=== PATIENT | female | born 1980 | race Caucasian/White ===

== ENCOUNTER 2016-10-28 07:40 | Emergency (ER) | payer OTHER ==
[2016-10-28 07:51] VITALS: RESP 18
[2016-10-28] MEDS ORDERED: ORPHENADRINE 30 MG/ML 2 ML VIAL IM STA (08:02)
[2016-10-28] MEDS ORDERED: KETOROLAC 60 MG/2 ML VIAL IM STA (08:02)
--- NOTE | 2016-10-28 08:05 | ED ---
Back Pain HPI - General Chief Complaint: Back Pain/Injury Stated Complaint: LOWER BACK PAIN Time Seen by Provider: 10/28/16 07:54 Source: patient, RN notes reviewed, old records reviewed Limitations: no limitations - History of Present Illness Initial Comments: 35-year-old female presents emergency Department chief complaint of left-sided lower back pain for the past few days. Patient reports that she wakes up the morning with the pain and his been taking Motrin and it goes away. Patient reports that today the pain did not go away after she took some Motrin. Patient states the pain is worse with certain positions. Denies any peripheral paresthesias or saddle anesthesias. Patient states that the pain remains located in the left lower back. Denies any dysuria, hematuria or fevers or chills. Patient states the pain does not radiate down her leg. Denies any recent trauma or falls. Patient denies any recent fever, chills, shortness of breath, chest pain, abdominal pain, nausea vomiting, numbness or tingling, dysuria or hematuria, constipation or diarrhea, headaches or visual changes, or any other current symptoms - Related Data Home Medications Medication Instructions Recorded Confirmed Gemfibrozil [Lopid] 600 mg PO AC-BID 07/30/13 10/28/16 Glimepiride [Amaryl] 4 mg PO BID 07/30/13 10/28/16 Hydrochlorothiazide [Hydrodiuril] 12.5 mg PO DAILY 07/30/13 10/28/16 Lisinopril [Zestril] 20 mg PO DAILY 07/30/13 10/28/16 metFORMIN HCL 1,000 mg PO BID 07/30/13 10/28/16 Albuterol Inhaler [Ventolin Hfa 1 - 2 puff INHALATION RT-Q6H PRN 09/11/14 Inhaler] Albuterol Nebulized [Ventolin 2.5 mg INHALATION RT-Q6H PRN 09/11/14 10/28/16 Nebulized] Ibuprofen [Motrin] 200 - 800 mg PO Q6HR PRN 10/28/16 10/28/16 Simvastatin [Zocor] 10 mg PO HS 10/28/16 10/28/16 Previous Rx's Medication Instructions Recorded Acetaminophen-Codeine 300-30mg 1 tab PO Q6H PRN #10 tablet 10/28/16 [Tylenol #3] Cyclobenzaprine [Flexeril] 10 mg PO TID #15 tab 10/28/16 methylPREDNISolone Dose Pack 4 mg PO DIRECTED #21 package 10/28/16 [Medrol Dose Pack] Allergies Allergy/AdvReac Type Severity Reaction Status Date / Time egg Allergy Unknown Verified 10/28/16 08:25 milk AdvReac Cough Verified 10/28/16 08:25 Review of Systems ROS Statement: Those systems with pertinent positive or pertinent negative responses have been documented in the HPI. ROS Other: All systems not noted in ROS Statement are negative. Past Medical History Past Medical History: Diabetes Mellitus, Hyperlipidemia, Hypertension Additional Past Medical History / Comment(s): BRONCHITIS, SINUSITIS History of Any Multi-Drug Resistant Organisms: None Reported Additional Past Surgical History / Comment(s): nose surgery-POLYPS REMOVED Past Anesthesia/Blood Transfusion Reactions: No Reported Reaction Past Psychological History: ADD/ADHD, Anxiety, Depression Smoking Status: Current every day smoker Past Alcohol Use History: Rare Past Drug Use History: None Reported - Past Family History Father History Unknown: Yes Mother Family Medical History: Congestive Heart Failure (CHF), Diabetes Mellitus, Hyperlipidemia, Hypertension General Exam - General Exam Comments Initial Comments: 35-year-old female. No acute distress. Limitations: no limitations General appearance: alert, in no apparent distress Head exam: Present: atraumatic, normocephalic, normal inspection Eye exam: Present: normal appearance, PERRL, EOMI. Absent: scleral icterus, conjunctival injection, periorbital swelling ENT exam: Present: normal exam, mucous membranes moist Neck exam: Present: normal inspection. Absent: tenderness, meningismus, lymphadenopathy Respiratory exam: Present: normal lung sounds bilaterally. Absent: respiratory distress, wheezes, rales, rhonchi, stridor Cardiovascular Exam: Present: regular rate, normal rhythm, normal heart sounds. Absent: systolic murmur, diastolic murmur, rubs, gallop, clicks GI/Abdominal exam: Present: soft, normal bowel sounds. Absent: distended, tenderness, guarding, rebound, rigid Extremities exam: Present: normal inspection, full ROM, normal capillary refill. Absent: tenderness, pedal edema, joint swelling, calf tenderness Back exam: Present: normal inspection, tenderness, muscle spasm, paraspinal tenderness (Left lower lumbar paraspinal muscle tenderness and spasms.) Neurological exam: Present: alert, oriented X3, CN II-XII intact Psychiatric exam: Present: normal affect, normal mood Skin exam: Present: warm, dry, intact, normal color. Absent: rash Course Vital Signs 10/28/16 07:47 Temperature 97.4 F L Pulse Rate 105 H Respiratory 18 Rate Blood Pressure 130/74 O2 Sat by Pulse 97 Oximetry Medical Decision Making - Medical Decision Making 35-year-old female presents emergency Department chief complaint of left-sided lower back pain for the past few days. Patient reports that she wakes up the morning with the pain and his been taking Motrin and it goes away. Patient reports that today the pain did not go away after she took some Motrin. Patient states the pain is worse with certain positions. Urinalysis obtained. No signs of infection. 2+ bilirubin. Patient denies any specific abdominal pain. Patient was informed of this. Patient was feeling somewhat better after IM Solu-Medrol and Norflex. Patient will be discharged at this time with a steroid Dosepak, muscle relaxers and pain medication. Discussed close follow- up with primary care provider. Patient agrees to treatment plan will comply. Return parameters were discussed. - Lab Data Lab Results 10/28/16 Range/Units 08:08 Urine Color Yellow Urine Appearance Cloudy H (Clear) Urine pH 5.0 (5.0-8.0) Ur Specific [place] 1.035 (1.001-1.035) Urine Protein 2+ (Negative) Urine Glucose (UA) Negative (Negative) Urine Ketones Negative (Negative) Urine Blood Negative (Negative) Urine Nitrite Negative (Negative) Urine Bilirubin 2+ H (Negative) Urine Urobilinogen 2.0 (<2.0) mg/dL Ur Leukocyte Esterase Large (Negative) Urine RBC 4 (0-5) /hpf Urine WBC 7 H (0-5) /hpf Ur Squamous Epith Cells 23 H (0-4) /hpf Disposition Clinical Impression: Left-sided back pain Disposition: HOME SELF-CARE Condition: Good Instructions: Acute Low Back Pain (ED) Additional Instructions: Patient advised to follow-up with her primary care provider symptoms continue to persist. Take pain medication as directed. Emergency department if any alarming signs or symptoms occur. Prescriptions: Acetaminophen-Codeine 300-30mg [Tylenol #3] 1 tab PO Q6H PRN #10 tablet PRN Reason: Pain Cyclobenzaprine [Flexeril] 10 mg PO TID #15 tab methylPREDNISolone Dose Pack [Medrol Dose Pack] 4 mg PO DIRECTED #21 package Referrals: Yohan Trujillo DO [Primary Care Provider] - 1-2 days Nevin Peralta DO [Doctor of Osteopathic Medicine] - 1-2 days Time of Disposition: 09:09
[2016-10-28] MEDS ORDERED: methylPREDNISolone SOD SUCCI 125 MG/2 ML VIAL IM ONE (08:12)
[2016-10-28 09:01] LABS: Appearance,Urine Cloudy (Clear); Specific Gravity,Urine 1.035 (1.001-1.035)
[2016-10-28 09:02] LABS: Bilirubin,Urine 2+ (Negative); Glucose,Urine (UA) Negative (Negative); Ketones,Urine Negative (Negative); Nitrite,Urine Negative (Negative); Protein,Urine 2+ (Negative)
[2016-10-28 09:03] LABS: Leukocyte Esterase,Urine Large (Negative); UA Billing (MACRO vs. MICRO) MICRO
[2016-10-28 09:04] LABS: Particle Count 19562; RBC,Urine 4 /hpf (0-5); Squamous Epithelial Cell,Urine 23 /hpf (0-4); WBC,Urine 7 /hpf (0-5)
[2016-10-28] MEDS ORDERED: ACET/COD 300 MG/30 MG STARTER PACK 6 TAB BTL PO STA (09:17)
[2016-10-28 09:27] VITALS: BP 107/66; PULSE 86; TEMP 98.1
== END 2016-10-28 09:26 | disposition home or self-care (01) ==
LOC: EC 07:40
DX: M62.830 Muscle spasm of back (principal); E78.5 Hyperlipidemia, unspecified; I10 Essential (primary) hypertension; E11.9 Type 2 diabetes mellitus without complications; F17.200 Nicotine dependence, unspecified, uncomplicated; Z79.84 Long term (current) use of oral hypoglycemic drugs; Z79.899 Other long term (current) drug therapy; Z91.011 Allergy to milk products; Z91.012 Allergy to eggs
CPT/HCPCS: 81001; 99284; 96372 ×2; J2360; J2930

== ENCOUNTER 2017-01-14 01:36 | Emergency (ER) | payer OTHER ==
[2017-01-14] MEDS ORDERED: KETOROLAC 30 MG/ML 1 ML VIAL IVP STA (02:05)
[2017-01-14] MEDS ORDERED: HYDROmorphone 0.5 MG/0.5 ML SYRINGE IVP STA (02:05)
[2017-01-14] MEDS ORDERED: ONDANSETRON 4 MG/2 ML VIAL IVP STA (02:05)
[2017-01-14 02:47] LABS: Basophils # (A) 0.1 k/uL (0-0.2); Basophils % (A) 1 %; CH 32.5; CHCM 34.9; Eosinophils # (A) 0.5 k/uL (0-0.7); Eosinophils % (A) 5 %; HCT 35.3 % (34.0-46.0); HDW 2.82; HGB 12.1 gm/dL (11.4-16.0); Luc # (Auto) 0.12; Luc % (Auto) 1; Lymphocytes # (A) 2.8 k/uL (1.0-4.8); Lymphocytes % (A) 27 %; MCHC 34.2 g/dL (31.0-37.0); MCV 93.8 fL (80.0-100.0); Mean Platelet Volume 8.3; Monocytes # (A) 0.5 k/uL (0-1.0); Monocytes % (A) 5 %; Neutrophils # (A) 6.4 k/uL (1.3-7.7); Neutrophils % (A) 62 %; RBC 3.77 m/uL (3.80-5.40); RDW 14.9 % (11.5-15.5); WBC 10.3 k/uL (3.8-10.6); WBC (Perox) 10.55
[2017-01-14 02:50] LABS: Appearance,Urine Cloudy (Clear); Bilirubin,Urine Negative (Negative); Glucose,Urine (UA) Negative (Negative); Ketones,Urine Negative (Negative); Leukocyte Esterase,Urine Moderate (Negative); Mucus,Urine Rare /hpf; Nitrite,Urine Negative (Negative); PH, Urine 5.5 (5.0-8.0); Particle Count 1967; Protein,Urine Trace (Negative); RBC,Urine 1 /hpf (0-5); Specific Gravity,Urine 1.016 (1.001-1.035); Squamous Epithelial Cell,Urine 8 /hpf (0-4); UA Billing (MACRO vs. MICRO) MICRO; Urobilinogen,Urine <2.0 mg/dL (<2.0); WBC,Urine 3 /hpf (0-5)
[2017-01-14 02:55] LABS: ALT 65 U/L (9-52); AST 39 U/L (14-36); Alkaline Phosphatase 60 U/L (38-126); Amylase 53 U/L (30-110); Anion Gap 13 mmol/L; Blood Urea Nitrogen 15 mg/dL (7-17); Carbon Dioxide 20 mmol/L (22-30); Chloride 105 mmol/L (98-107); Glucose 162 mg/dL (74-99); Non-African American GFR(MDRD) >60 (>60 ml/min/1.73 sqM); Potassium 4.8 mmol/L (3.5-5.1); Sodium 138 mmol/L (137-145); Total Bilirubin 0.3 mg/dL (0.2-1.3); Total Protein 7.8 g/dL (6.3-8.2)
[2017-01-14 03:31] VITALS: RESP 18
[2017-01-14] MEDS ORDERED: RX INFO: IV CONTRAST WAS GIVEN 1 EACH MISC MISCELLANE PRN (03:36)
--- NOTE | 2017-01-14 03:56 | ED ---
Abdominal Pain HPI - General Chief Complaint: Abdominal Pain Stated Complaint: abd pain Time Seen by Provider: 01/14/17 01:55 Source: patient Mode of arrival: ambulatory Limitations: no limitations - History of Present Illness Initial Comments: 36-year-old female patient presents to the emergency department today for evaluation of abdominal pain. Patient states that she began to have abdominal pain yesterday. States it is in the mid epigastric region and the left lower quadrant. Patient states that she has had nausea with this however has not vomited. She states that the pain was tolerable yesterday however today throughout the day began to become worse. She states that she has been somewhat constipated, however she did have a small bowel movement this morning. She denies any fever, chills, hematochezia, melena, hematuria, dysuria, urinary urgency, or urinary frequency. She denies any vaginal bleeding or discharge. States that her periods are irregular. She denies any current sexual activity and denies any chance of . She denies any use of alcohol or street drugs. - Related Data Home Medications Medication Instructions Recorded Confirmed Gemfibrozil [Lopid] 600 mg PO AC-BID 07/30/13 10/28/16 Glimepiride [Amaryl] 4 mg PO BID 07/30/13 10/28/16 Hydrochlorothiazide [Hydrodiuril] 12.5 mg PO DAILY 07/30/13 10/28/16 Lisinopril [Zestril] 20 mg PO DAILY 07/30/13 10/28/16 metFORMIN HCL 1,000 mg PO BID 07/30/13 10/28/16 Albuterol Inhaler [Ventolin Hfa 1 - 2 puff INHALATION RT-Q6H PRN 09/11/14 Inhaler] Albuterol Nebulized [Ventolin 2.5 mg INHALATION RT-Q6H PRN 09/11/14 10/28/16 Nebulized] Ibuprofen [Motrin] 200 - 800 mg PO Q6HR PRN 10/28/16 10/28/16 Simvastatin [Zocor] 10 mg PO HS 10/28/16 10/28/16 Previous Rx's Medication Instructions Recorded Acetaminophen-Codeine 300-30mg 1 tab PO Q6H PRN #10 tablet 10/28/16 [Tylenol #3] Cyclobenzaprine [Flexeril] 10 mg PO TID #15 tab 10/28/16 methylPREDNISolone Dose Pack 4 mg PO DIRECTED #21 package 10/28/16 [Medrol Dose Pack] Polyethylene Glycol 3350 [Miralax] 17 gm PO DAILY PRN #255 gm 01/14/17 metroNIDAZOLE [Flagyl] 500 mg PO TID #30 tab 01/14/17 Allergies Allergy/AdvReac Type Severity Reaction Status Date / Time egg Allergy Unknown Verified 01/14/17 01:46 milk AdvReac Cough Verified 01/14/17 01:46 Review of Systems ROS Statement: Those systems with pertinent positive or pertinent negative responses have been documented in the HPI. ROS Other: All systems not noted in ROS Statement are negative. Past Medical History Past Medical History: Diabetes Mellitus, Hyperlipidemia, Hypertension Additional Past Medical History / Comment(s): BRONCHITIS, SINUSITIS History of Any Multi-Drug Resistant Organisms: None Reported Additional Past Surgical History / Comment(s): nose surgery-POLYPS REMOVED Past Anesthesia/Blood Transfusion Reactions: No Reported Reaction Past Psychological History: ADD/ADHD, Anxiety, Depression Smoking Status: Current every day smoker Past Alcohol Use History: Rare Past Drug Use History: None Reported - Past Family History Father History Unknown: Yes Mother Family Medical History: Congestive Heart Failure (CHF), Diabetes Mellitus, Hyperlipidemia, Hypertension General Exam Limitations: no limitations General appearance: alert, in no apparent distress, other (This is a well- developed, well-nourished adult female patient in no acute distress. Vital signs upon presentation are temperature 98.6F, pulse 100, respirations 16, blood pressure 136/76, pulse ox 98% on room air.) Eye exam: Present: normal appearance, PERRL, EOMI. Absent: scleral icterus, conjunctival injection, periorbital swelling ENT exam: Present: normal exam, normal oropharynx, mucous membranes moist Respiratory exam: Present: normal lung sounds bilaterally. Absent: respiratory distress, wheezes, rales, rhonchi, stridor Cardiovascular Exam: Present: regular rate, normal rhythm, normal heart sounds. Absent: systolic murmur, diastolic murmur, rubs, gallop, clicks GI/Abdominal exam: Present: soft, tenderness (Midepigastric tenderness, left lower quadrant tenderness.), normal bowel sounds. Absent: distended, guarding, rebound, rigid Back exam: Present: normal inspection. Absent: CVA tenderness (R), CVA tenderness (L) Neurological exam: Present: alert, oriented X3, CN II-XII intact Psychiatric exam: Present: normal affect, normal mood Skin exam: Present: warm, dry, intact, normal color. Absent: rash Course Vital Signs 01/14/17 01/14/17 01/14/17 01:42 02:27 03:30 Temperature 98.6 F 97.5 F L Pulse Rate 100 104 H 62 Respiratory 16 20 18 Rate Blood Pressure 136/76 132/77 111/57 O2 Sat by Pulse 98 96 95 Oximetry Medical Decision Making - Medical Decision Making 36-year-old female patient percents the emergency department today for complaints of epigastric and left lower quadrant abdominal pain. Physical examination did reveal some tenderness in the midepigastric region as well as the left lower quadrant. Patient vital signs are stable. Labs were reviewed and were unremarkable. Patient is afebrile. Urinalysis did not show any infection. KUB x-ray of the abdomen showed overall nonobstructive bowel gas pattern with stool and air throughout the colon likely representing constipation. CT of the abdomen and pelvis showed possible infectious versus inflammatory enteritis possibly constipation. Patient was informed of findings. With physical exam and patient history of constipation we will discharge her home at this time with a prescription for MiraLAX. We'll also treat her for enteritis with Flagyl. She is instructed to follow-up with her primary care physician for recheck in 1-2 days. She is instructed to return here immediately for any new, worsening, or concerning symptoms. She verbalizes understanding and agrees with this plan. - Lab Data Result diagrams: 01/14/17 02:26 01/14/17 02:26 Lab Results 01/14/17 01/14/17 01/14/17 Range/Units 02:26 02:26 02:26 WBC 10.3 (3.8-10.6) k/uL RBC 3.77 L (3.80-5.40) m/uL Hgb 12.1 (11.4-16.0) gm/dL Hct 35.3 (34.0-46.0) % MCV 93.8 (80.0-100.0) fL MCH 32.0 (25.0-35.0) pg MCHC 34.2 (31.0-37.0) g/dL RDW 14.9 (11.5-15.5) % Plt Count 323 (150-450) k/uL Neutrophils % 62 % Lymphocytes % 27 % Monocytes % 5 % Eosinophils % 5 % Basophils % 1 % Neutrophils # 6.4 (1.3-7.7) k/uL Lymphocytes # 2.8 (1.0-4.8) k/uL Monocytes # 0.5 (0-1.0) k/uL Eosinophils # 0.5 (0-0.7) k/uL Basophils # 0.1 (0-0.2) k/uL Sodium 138 (137-145) mmol/L Potassium 4.8 (3.5-5.1) mmol/L Chloride 105 (98-107) mmol/L Carbon Dioxide 20 L (22-30) mmol/L Anion Gap 13 mmol/L BUN 15 (7-17) mg/dL Creatinine 0.90 (0.52-1.04) mg/dL Est GFR (MDRD) Af Amer >60 (>60 ml/min/1.73 sqM) Est GFR (MDRD) Non-Af >60 (>60 ml/min/1.73 sqM) Glucose 162 H (74-99) mg/dL Plasma Lactic Acid Kb 1.3 (0.7-2.0) mmol/L Calcium 10.0 (8.4-10.2) mg/dL Total Bilirubin 0.3 (0.2-1.3) mg/dL AST 39 H (14-36) U/L ALT 65 H (9-52) U/L Alkaline Phosphatase 60 (38-126) U/L Total Protein 7.8 (6.3-8.2) g/dL Albumin 4.8 (3.5-5.0) g/dL Amylase 53 (30-110) U/L Lipase 107 (23-300) U/L Urine Color Urine Appearance (Clear) Urine pH (5.0-8.0) Ur Specific [place] (1.001-1.035) Urine Protein (Negative) Urine Glucose (UA) (Negative) Urine Ketones (Negative) Urine Blood (Negative) Urine Nitrite (Negative) Urine Bilirubin (Negative) Urine Urobilinogen (<2.0) mg/dL Ur Leukocyte Esterase (Negative) Urine RBC (0-5) /hpf Urine WBC (0-5) /hpf Ur Squamous Epith Cells (0-4) /hpf Urine Mucus (None) /hpf Urine HCG, Qual (Not Detectd) 01/14/17 01/14/17 Range/Units 02:26 02:26 WBC (3.8-10.6) k/uL RBC (3.80-5.40) m/uL Hgb (11.4-16.0) gm/dL Hct (34.0-46.0) % MCV (80.0-100.0) fL MCH (25.0-35.0) pg MCHC (31.0-37.0) g/dL RDW (11.5-15.5) % Plt Count (150-450) k/uL Neutrophils % % Lymphocytes % % Monocytes % % Eosinophils % % Basophils % % Neutrophils # (1.3-7.7) k/uL Lymphocytes # (1.0-4.8) k/uL Monocytes # (0-1.0) k/uL Eosinophils # (0-0.7) k/uL Basophils # (0-0.2) k/uL Sodium (137-145) mmol/L Potassium (3.5-5.1) mmol/L Chloride (98-107) mmol/L Carbon Dioxide (22-30) mmol/L Anion Gap mmol/L BUN (7-17) mg/dL Creatinine (0.52-1.04) mg/dL Est GFR (MDRD) Af Amer (>60 ml/min/1.73 sqM) Est GFR (MDRD) Non-Af (>60 ml/min/1.73 sqM) Glucose (74-99) mg/dL Plasma Lactic Acid Kb (0.7-2.0) mmol/L Calcium (8.4-10.2) mg/dL Total Bilirubin (0.2-1.3) mg/dL AST (14-36) U/L ALT (9-52) U/L Alkaline Phosphatase (38-126) U/L Total Protein (6.3-8.2) g/dL Albumin (3.5-5.0) g/dL Amylase (30-110) U/L Lipase (23-300) U/L Urine Color Yellow Urine Appearance Cloudy H (Clear) Urine pH 5.5 (5.0-8.0) Ur Specific [place] 1.016 (1.001-1.035) Urine Protein Trace H (Negative) Urine Glucose (UA) Negative (Negative) Urine Ketones Negative (Negative) Urine Blood Negative (Negative) Urine Nitrite Negative (Negative) Urine Bilirubin Negative (Negative) Urine Urobilinogen <2.0 (<2.0) mg/dL Ur Leukocyte Esterase Moderate H (Negative) Urine RBC 1 (0-5) /hpf Urine WBC 3 (0-5) /hpf Ur Squamous Epith Cells 8 H (0-4) /hpf Urine Mucus Rare H (None) /hpf Urine HCG, Qual Not Detected (Not Detectd) - Radiology Data Radiology results: report reviewed, image reviewed KUB x-ray of the abdomen shows stool and air seen throughout the colon extending into the rectum likely representing constipation. No evidence of obstruction on these limited views. Bones and joints are essentially unchanged. Impression by Dr. Arroyo shows stool and air throughout the colon extending to the rectum likely representing constipation. CT of the abdomen and pelvis with contrast report reviewed in its entirety. Impression by Dr. Arroyo shows evaluation of the bowels limited without the use of oral contrast material. Within this limitation there are appears to be wall thickening of the mid small bowel loops in the left hemiabdomen with associated mild mesenteric fat stranding and mild engorgement of the supplying mesenteric vessels. Constellation of findings are suggestive of infectious versus inflammatory enteritis. Fecal like material within distal small bowel loops which are nondistended. Finding likely represents low transit time, although early small bowel obstruction cannot be definitively excluded. Correlate clinically. Findings also suggestive of constipation. Disposition Clinical Impression: Enteritis, Abdominal pain Disposition: HOME SELF-CARE Condition: Good Instructions: Constipation (ED), High Fiber Diet (ED), Abdominal Pain (ED), Enteritis (ED) Additional Instructions: Increase fluids. Take medications as directed. Follow-up with her primary care physician for recheck in 1-2 days. Return here immediately for any new, worsening, or concerning symptoms. Prescriptions: metroNIDAZOLE [Flagyl] 500 mg PO TID #30 tab Polyethylene Glycol 3350 [Miralax] 17 gm PO DAILY PRN #255 gm PRN Reason: Constipation Referrals: Yohan Trujillo DO [Primary Care Provider] - 1-2 days Time of Disposition: 05:00
--- NOTE | 2017-01-14 03:59 | XR ---
EXAM: XR Abdomen, 1 View CLINICAL HISTORY: abdominal pain TECHNIQUE: Frontal upright view of the abdomen/pelvis. COMPARISON: 09/11/2014 FINDINGS: Gastrointestinal tract: Stool and air seen throughout the colon extending to the rectum, likely representing constipation. No evidence of obstruction on these limited views. Bones/joints: Essentially unchanged. IMPRESSION: Stool and air throughout the colon extending to the rectum, likely representing constipation.
--- NOTE | 2017-01-14 04:43 | CT ---
EXAM: CT Abdomen and Pelvis With Intravenous Contrast CLINICAL HISTORY: Periumbilical abdominal pain for the past few days with nausea. TECHNIQUE: Axial computed tomography images of the abdomen and pelvis with intravenous contrast. DLP is 1350.90 mGy-cm. This CT exam was performed using one or more of the following dose reduction techniques: automated exposure control, adjustment of the mA and/or kV according to patient size, and/or use of iterative reconstruction technique. COMPARISON: Radiographs the abdomen performed earlier the same day. FINDINGS: Lower thorax: No acute findings. ABDOMEN: Liver: Hepatomegaly and/or Elisabeth's lobe. Mild hepatic steatosis is suggested. Gallbladder and bile ducts: Unremarkable. No calcified stones. No ductal dilation. Pancreas: Unremarkable. No mass. No ductal dilation. Spleen: The spleen is mildly enlarged, measuring up to 13.2 cm in greatest dimension, of unknown significance. Adrenals: Unremarkable. No mass. Kidneys and ureters: Unremarkable. No solid mass. No hydronephrosis. Stomach and bowel: Evaluation of the bowel is limited without the use of oral contrast material. Within this limitation, there appears to be wall thickening of mid small bowel loops in the left hemiabdomen with associated mild mesenteric fat stranding and mild engorgement of the supplying mesenteric vessels (Comb sign, as seen on series 7, image 42). Constellation of findings are suggestive of infectious versus inflammatory enteritis. Fecal-like material seen within distal small bowel loops which are non-distended. Finding likely represents slow transit time, although early small bowel obstruction cannot be definitively excluded. Findings also suggestive of constipation. Appendix: A normal appendix is seen (series 3, image 66). PELVIS: Bladder: Unremarkable. No mass. Reproductive: Fibroid uterus is noted. ABDOMEN and PELVIS: Intraperitoneal space: Trace pelvic free fluid is seen, which is likely physiologic and/or reactive to the above-mentioned findings. No free air. Bones/joints: No acute fracture. No dislocation. Soft tissues: Unremarkable. Vasculature: See above. Lymph nodes: Shotty retroperitoneal and mesenteric lymph nodes are noted, of unknown significance. IMPRESSION: 1. Evaluation of the bowel is limited without the use of oral contrast material. Within this limitation, there appears to be wall thickening of mid small bowel loops in the left hemiabdomen with associated mild mesenteric fat stranding and mild engorgement of the supplying mesenteric vessels (Comb sign, as seen on series 7, image 42). Constellation of findings are suggestive of infectious versus inflammatory enteritis. 2. Fecal-like material within distal small bowel loops, which are non- distended. Finding likely represents slow transit time, although early small bowel obstruction cannot be definitively excluded. Correlate clinically. 3. Findings also suggestive of constipation.
[2017-01-14 05:15] VITALS: BP 107/56; PULSE 87; TEMP 97.4
== END 2017-01-14 05:14 | disposition home or self-care (01) ==
LOC: EC 01:36
DX: K52.9 Noninfective gastroenteritis and colitis, unspecified (principal); E78.5 Hyperlipidemia, unspecified; I10 Essential (primary) hypertension; E11.9 Type 2 diabetes mellitus without complications; F17.200 Nicotine dependence, unspecified, uncomplicated; Z79.84 Long term (current) use of oral hypoglycemic drugs; Z79.899 Other long term (current) drug therapy; Z91.011 Allergy to milk products; Z91.012 Allergy to eggs
CPT/HCPCS: 36415; 74000; 74177; 80053; 81001; 81025; 82150; 83605; 83690; 85025; 96374; 96375; 99284

== ENCOUNTER 2017-03-30 11:25 | Emergency (ER) | payer OTHER ==
[2017-03-30] MEDS ORDERED: SODIUM CHLORIDE 0.9% 500 ML IV STA (13:20)
[2017-03-30] MEDS ORDERED: ONDANSETRON 4 MG/2 ML VIAL IVP STA (13:20)
--- NOTE | 2017-03-30 13:24 | ED ---
General Adult HPI - General Chief complaint: Abdominal Pain Stated complaint: Abd.pain Time Seen by Provider: 03/30/17 13:07 Source: patient, RN notes reviewed Mode of arrival: ambulatory Limitations: no limitations - History of Present Illness Initial comments: 36-year-old female presents with epigastric abdominal pain. Pain is been present for the past one week. She states the pain is worse with eating or drinking. She does have the sensation of gastric reflux after eating with nausea. She does complain of some mild anterior chest pain associated with this. Denies any change in her bowels. Denies dysuria. Denies fever. Denies cough or nasal congestion. Patient is a current smoker. She states the symptoms are worse with food, however she does have pain when she drinks water or pop.patient is concerned this is her gallbladder. She did see her primary care physician who thought it was related to anxiety and prescribed her anxiety medication, she states this has not improved her symptoms. - Related Data Home Medications Medication Instructions Recorded Confirmed Gemfibrozil [Lopid] 600 mg PO AC-BID 07/30/13 03/30/17 Glimepiride [Amaryl] 4 mg PO BID 07/30/13 03/30/17 Hydrochlorothiazide [Hydrodiuril] 12.5 mg PO DAILY 07/30/13 03/30/17 Lisinopril [Zestril] 20 mg PO DAILY 07/30/13 03/30/17 metFORMIN HCL 1,000 mg PO BID 07/30/13 03/30/17 Albuterol Inhaler [Ventolin Hfa 1 - 2 puff INHALATION RT-Q6H PRN 09/11/14 Inhaler] Albuterol Nebulized [Ventolin 2.5 mg INHALATION RT-Q6H PRN 09/11/14 03/30/17 Nebulized] Ibuprofen [Motrin] 200 - 800 mg PO Q6HR PRN 10/28/16 03/30/17 Simvastatin [Zocor] 10 mg PO HS 10/28/16 03/30/17 Sertraline [Zoloft] 25 mg PO DAILY 03/30/17 03/30/17 Previous Rx's Medication Instructions Recorded Omeprazole [PriLOSEC] 20 mg PO AC-BID #60 cap 03/30/17 Allergies Allergy/AdvReac Type Severity Reaction Status Date / Time egg Allergy Unknown Verified 03/30/17 12:49 milk AdvReac Cough Verified 03/30/17 12:49 Review of Systems ROS Statement: Those systems with pertinent positive or pertinent negative responses have been documented in the HPI. ROS Other: All systems not noted in ROS Statement are negative. Past Medical History Past Medical History: Diabetes Mellitus, Hyperlipidemia, Hypertension Additional Past Medical History / Comment(s): BRONCHITIS, SINUSITIS History of Any Multi-Drug Resistant Organisms: None Reported Additional Past Surgical History / Comment(s): nose surgery-POLYPS REMOVED Past Anesthesia/Blood Transfusion Reactions: No Reported Reaction Past Psychological History: ADD/ADHD, Anxiety, Depression Smoking Status: Current every day smoker Past Alcohol Use History: Rare Past Drug Use History: None Reported - Past Family History Father History Unknown: Yes Mother Family Medical History: Congestive Heart Failure (CHF), Diabetes Mellitus, Hyperlipidemia, Hypertension General Exam Limitations: no limitations General appearance: alert, in no apparent distress Head exam: Present: atraumatic, normocephalic Eye exam: Present: normal appearance, PERRL ENT exam: Present: normal exam. Absent: normal oropharynx, mucous membranes dry Neck exam: Present: normal inspection. Absent: tenderness, meningismus Respiratory exam: Present: normal lung sounds bilaterally. Absent: respiratory distress Cardiovascular Exam: Present: regular rate, normal rhythm GI/Abdominal exam: Present: soft, tenderness (epigastric tenderness to palpation ). Absent: distended Extremities exam: Present: normal inspection, normal capillary refill. Absent: pedal edema Neurological exam: Present: alert, oriented X3, CN II-XII intact. Absent: motor sensory deficit Psychiatric exam: Present: normal affect, normal mood Skin exam: Present: warm, dry, intact. Absent: cyanosis, diaphoretic Course Vital Signs 03/30/17 03/30/17 11:37 13:35 Temperature 97.8 F 98.7 F Pulse Rate 63 90 Respiratory 16 18 Rate Blood Pressure 120/69 111/54 O2 Sat by Pulse 98 95 Oximetry Medical Decision Making - Medical Decision Making 36-year-old female with abdominal pain worse with eating. This is been present for approximately one week. Patient does describe certain foods that make her symptoms worsen she describes some reflux symptoms in her throat. She is concerned about gallbladder, there is some epigastric tenderness and AST, ALT both mildly elevated as well as lipase of 400 which is mildly elevated so ultrasound is obtained, this is negative for any acute gallbladder disease, bile duct within normal limits. Chest x-ray obtained which is negative. Patient is instructed to eat a clear liquid diet followed by a very bland generally healthy diet, she will be prescribed a proton pump inhibitor and will follow-up with her primary care physician. - Lab Data Result diagrams: 03/30/17 13:30 03/30/17 13:30 Lab Results 03/30/17 03/30/17 03/30/17 Range/Units 13:30 13:30 13:30 WBC 7.6 (3.8-10.6) k/uL RBC 3.99 (3.80-5.40) m/uL Hgb 12.3 (11.4-16.0) gm/dL Hct 35.3 (34.0-46.0) % MCV 88.5 (80.0-100.0) fL MCH 30.8 (25.0-35.0) pg MCHC 34.8 (31.0-37.0) g/dL RDW 13.9 (11.5-15.5) % Plt Count 338 (150-450) k/uL Neutrophils % 55 % Lymphocytes % 35 % Monocytes % 3 % Eosinophils % 5 % Basophils % 1 % Neutrophils # 4.1 (1.3-7.7) k/uL Lymphocytes # 2.6 (1.0-4.8) k/uL Monocytes # 0.2 (0-1.0) k/uL Eosinophils # 0.4 (0-0.7) k/uL Basophils # 0.1 (0-0.2) k/uL Sodium 140 (137-145) mmol/L Potassium 4.5 (3.5-5.1) mmol/L Chloride 104 (98-107) mmol/L Carbon Dioxide 22 (22-30) mmol/L Anion Gap 14 mmol/L BUN 19 H (7-17) mg/dL Creatinine 0.82 (0.52-1.04) mg/dL Est GFR (MDRD) Af Amer >60 (>60 ml/min/1.73 sqM) Est GFR (MDRD) Non-Af >60 (>60 ml/min/1.73 sqM) Glucose 219 H (74-99) mg/dL Calcium 9.8 (8.4-10.2) mg/dL Total Bilirubin 0.2 (0.2-1.3) mg/dL AST 51 H (14-36) U/L ALT 77 H (9-52) U/L Alkaline Phosphatase 59 (38-126) U/L Total Creatine Kinase 67 (30-135) U/L CK-MB (CK-2) 0.6 (0.0-2.4) ng/mL CK-MB (CK-2) Rel Index 0.9 Troponin I <0.012 (0.000-0.034) ng/mL Total Protein 7.4 (6.3-8.2) g/dL Albumin 4.5 (3.5-5.0) g/dL Amylase 69 (30-110) U/L Lipase 400 H (23-300) U/L Disposition Clinical Impression: Pancreatitis, Gastritis Disposition: HOME SELF-CARE Condition: Good Instructions: Pancreatitis (ED), Gastritis (ED) Prescriptions: Omeprazole [PriLOSEC] 20 mg PO AC-BID #60 cap Referrals: Arpan Ayala MD [Primary Care Provider] - 1-2 days Time of Disposition: 15:11
[2017-03-30 13:37] VITALS: RESP 18
[2017-03-30 13:47] LABS: Basophils # (A) 0.1 k/uL (0-0.2); Basophils % (A) 1 %; Eosinophils # (A) 0.4 k/uL (0-0.7); Eosinophils % (A) 5 %; HCT 35.3 % (34.0-46.0); HGB 12.3 gm/dL (11.4-16.0); Lymphocytes # (A) 2.6 k/uL (1.0-4.8); Lymphocytes % (A) 35 %; MCH 30.8 pg (25.0-35.0); MCHC 34.8 g/dL (31.0-37.0); MCV 88.5 fL (80.0-100.0); Mean Platelet Volume 7.5; Monocytes # (A) 0.2 k/uL (0-1.0); Monocytes % (A) 3 %; Neutrophils # (A) 4.1 k/uL (1.3-7.7); Neutrophils % (A) 55 %; Platelet Count 338 k/uL (150-450); RBC 3.99 m/uL (3.80-5.40); RDW 13.9 % (11.5-15.5); WBC 7.6 k/uL (3.8-10.6)
[2017-03-30 14:06] LABS: ALT 77 U/L (9-52); AST 51 U/L (14-36); Albumin 4.5 g/dL (3.5-5.0); Alkaline Phosphatase 59 U/L (38-126); Amylase 69 U/L (30-110); Anion Gap 14 mmol/L; Blood Urea Nitrogen 19 mg/dL (7-17); Calcium 9.8 mg/dL (8.4-10.2); Carbon Dioxide 22 mmol/L (22-30); Chloride 104 mmol/L (98-107); Glucose 219 mg/dL (74-99); Lipase 400 U/L (23-300); Potassium 4.5 mmol/L (3.5-5.1); Sodium 140 mmol/L (137-145); Total Bilirubin 0.2 mg/dL (0.2-1.3); Total Protein 7.4 g/dL (6.3-8.2)
[2017-03-30 14:18] LABS: Creatine Kinase 67 U/L (30-135)
[2017-03-30 14:30] LABS: Creatine Kinase MB 0.6 ng/mL (0.0-2.4); Troponin I <0.012 ng/mL (0.000-0.034)
--- NOTE | 2017-03-30 14:45 | XR ---
EXAMINATION TYPE: XR chest 2V DATE OF EXAM: 03/30/2017 COMPARISON: NONE HISTORY: Chest pain TECHNIQUE: Frontal and lateral views of the chest are obtained. FINDINGS: There is no focal air space opacity. No evidence for pneumothorax. No pleural effusion. The cardiac silhouette size is within normal limits. The osseous structures are grossly intact. IMPRESSION: 1. No acute cardiopulmonary process.
--- NOTE | 2017-03-30 14:57 | US ---
EXAMINATION TYPE: US gallbladder DATE OF EXAM: 03/30/2017 COMPARISON: US CLINICAL HISTORY: Pain. Pt states ABD pain and nausea EXAM MEASUREMENTS: Liver Length: 20.4 cm Gallbladder Wall: 0.3 cm CBD: 0.2 cm Right Kidney: 10.3 x 4.2 x 5.8 cm Obese pt Pancreas: wnl, tail obscured by overlying bowel gas Liver: Enlarged, heterogeneous with probable fatty sparing at megan Gallbladder: wnl Evidence for sonographic Caldera's sign: No CBD: wnl Right Kidney: wnl IMPRESSION: 1. Hepatic steatosis with hepatomegaly.
[2017-03-30 15:40] VITALS: BP 108/60; PULSE 80; TEMP 97
== END 2017-03-30 15:39 | disposition home or self-care (01) ==
LOC: EC 11:25
DX: K85.90 Acute pancreatitis without necrosis or infection, unspecified (principal); K29.70 Gastritis, unspecified, without bleeding; E11.9 Type 2 diabetes mellitus without complications; E78.5 Hyperlipidemia, unspecified; F41.9 Anxiety disorder, unspecified; F32.9 Major depressive disorder, single episode, unspecified; I10 Essential (primary) hypertension; F17.200 Nicotine dependence, unspecified, uncomplicated; Z91.011 Allergy to milk products; Z91.012 Allergy to eggs; Z79.84 Long term (current) use of oral hypoglycemic drugs; Z79.899 Other long term (current) drug therapy
CPT/HCPCS: 99284; 96374; 96361 ×2; 36415; 80053; 82150; 82550; 82553; 83690; 84484; 85025; 71046; 76705; J2405

== ENCOUNTER 2018-06-26 10:20 | Emergency (ER) | payer OTHER ==
[2018-06-26 10:29] VITALS: BP 134/66; PULSE 81; RESP 18; TEMP 98.6
[2018-06-26] MEDS ORDERED: LIDOCAINE 1% INJ 10MG/ML (20 ML MDV) SQ ONE (10:40)
[2018-06-26] MEDS ORDERED: SULFAMETH-TMP DS STARTER PACK 2 TAB BTL PO STA (10:41)
--- NOTE | 2018-06-26 10:43 | ED ---
Skin/Abscess/FB HPI - General Chief complaint: Skin/Abscess/Foreign Body Stated complaint: Bump on thigh Time Seen by Provider: 06/26/18 10:31 Source: patient, RN notes reviewed, old records reviewed Mode of arrival: ambulatory Limitations: no limitations - History of Present Illness Initial comments: Patient is a 37-year-old female with history of diabetes hyperlipidemia hypertension. She presents emergency department today with complaints of a bump on her inner left thigh. She reports she's had the symptoms for the past 4 days. Patient states that she's had history of ingrown hairs the area before. Patient states that she has had no fevers or chills. Denies any drainage from the area. - Related Data Home Medications Medication Instructions Recorded Confirmed Gemfibrozil [Lopid] 600 mg PO AC-BID 07/30/13 03/30/17 Glimepiride [Amaryl] 4 mg PO BID 07/30/13 03/30/17 Hydrochlorothiazide [Hydrodiuril] 12.5 mg PO DAILY 07/30/13 03/30/17 Lisinopril [Zestril] 20 mg PO DAILY 07/30/13 03/30/17 metFORMIN HCL 1,000 mg PO BID 07/30/13 03/30/17 Albuterol Inhaler [Ventolin Hfa 1 - 2 puff INHALATION RT-Q6H PRN 09/11/14 03/30/17 Inhaler] Albuterol Nebulized [Ventolin 2.5 mg INHALATION RT-Q6H PRN 09/11/14 03/30/17 Nebulized] Ibuprofen [Motrin] 200 - 800 mg PO Q6HR PRN 10/28/16 03/30/17 Simvastatin [Zocor] 10 mg PO HS 10/28/16 03/30/17 Sertraline [Zoloft] 25 mg PO DAILY 03/30/17 03/30/17 Previous Rx's Medication Instructions Recorded Omeprazole [PriLOSEC] 20 mg PO AC-BID #60 cap 03/30/17 Sulfamethox-Tmp 800-160Mg [Bactrim 2 tab PO Q12HR #40 tab 06/26/18 DS 800-160 mg] Allergies Allergy/AdvReac Type Severity Reaction Status Date / Time egg Allergy Unknown Verified 06/26/18 10:29 milk AdvReac Cough Verified 06/26/18 10:29 Review of Systems ROS Statement: Those systems with pertinent positive or pertinent negative responses have been documented in the HPI. ROS Other: All systems not noted in ROS Statement are negative. Past Medical History Past Medical History: Diabetes Mellitus, Hyperlipidemia, Hypertension Additional Past Medical History / Comment(s): BRONCHITIS, SINUSITIS History of Any Multi-Drug Resistant Organisms: None Reported Additional Past Surgical History / Comment(s): nose surgery-POLYPS REMOVED Past Anesthesia/Blood Transfusion Reactions: No Reported Reaction Past Psychological History: ADD/ADHD, Anxiety, Depression Smoking Status: Current every day smoker Past Alcohol Use History: Rare Past Drug Use History: None Reported - Past Family History Father History Unknown: Yes Mother Family Medical History: Congestive Heart Failure (CHF), Diabetes Mellitus, Hyperlipidemia, Hypertension General Exam - General Exam Comments Initial Comments: Pleasant 37-year-old female. Alert and oriented. No distress. Limitations: no limitations Head exam: Present: atraumatic, normocephalic, normal inspection Eye exam: Present: normal appearance, PERRL, EOMI. Absent: scleral icterus, conjunctival injection, periorbital swelling ENT exam: Present: normal exam, mucous membranes moist Neck exam: Present: normal inspection. Absent: tenderness, meningismus, lymphadenopathy Respiratory exam: Present: normal lung sounds bilaterally. Absent: respiratory distress, wheezes, rales, rhonchi, stridor Cardiovascular Exam: Present: regular rate, normal rhythm, normal heart sounds. Absent: systolic murmur, diastolic murmur, rubs, gallop, clicks GI/Abdominal exam: Present: soft Extremities exam: Present: normal inspection, full ROM, normal capillary refill. Absent: tenderness, pedal edema, joint swelling, calf tenderness Left Upper Leg exam: Present: full ROM. Absent: normal inspection (Patient has an area of abscess within the groin between upper thigh and labia. Area measures proximally 2 cm.) Knee exam: Present: normal inspection, full ROM Lower Leg exam: Present: normal inspection, full ROM Neurovascular tendon exam: Present: no vascular compromise Gait: observed and normal Back exam: Present: normal inspection Neurological exam: Present: alert, oriented X3, CN II-XII intact Psychiatric exam: Present: normal affect, normal mood Skin exam: Present: warm, dry, intact, normal color. Absent: rash Course Vital Signs 06/26/18 10:25 Temperature 98.6 F Pulse Rate 81 Respiratory 18 Rate Blood Pressure 134/66 O2 Sat by Pulse 97 Oximetry Procedures - Incision & Drainage Consent Obtained: verbal consent Site: vulva/vagina (Left groin.) Size (cm): 2 Anesthetic Used: lidocaine 1% Amount (mLs): 5 I&D Cleaning Method: Iodine Sterile Field Used?: Yes Scalpel Used: #11 I&D Drainage Obtained: Pus, Blood Culture Obtained?: Yes Patient Tolerated Procedure: well, no complications Medical Decision Making - Medical Decision Making Patient's a 29-year-old diabetic female, presents return today for an abscess between her left side labia and inner thigh. Patient has a 2 cm x 3 cm area of fluctuance. I used 1% lidocaine instilled 5 mL of lidocaine. 11 blade scalpel was used to make an incision. Approximately 6 mL of purulent fluid was removed from the area. Patient would not tolerate packing. The wound was open and advised putting warm compress earlier. We'll discharge the Patient with a prescription for Bactrim. I discussed that she should follow-up with primary care doctor. She states she has an appointment tomorrow. All questions answered return parameters were discussed. Disposition Clinical Impression: Groin abscess Disposition: HOME SELF-CARE Condition: Good Instructions (If sedation given, give patient instructions): Abscess Incision and Drainage (ED) Additional Instructions: Patient should follow-up with her primary care doctor tomorrow. Apply warm compresses over the area. Keep the area clean and dry. Return to the emergency department if any alarming signs symptoms occur. Prescriptions: Sulfamethox-Tmp 800-160Mg [Bactrim DS 800-160 mg] 2 tab PO Q12HR #40 tab Is patient prescribed a controlled substance at d/c from ED?: No Referrals: Arpan Ayala MD [Primary Care Provider] - 1-2 days Time of Disposition: 11:05
== END 2018-06-26 11:23 | disposition home or self-care (01) ==
LOC: EC 10:20
DX: L02.214 Cutaneous abscess of groin (principal); E11.9 Type 2 diabetes mellitus without complications; I10 Essential (primary) hypertension; E78.5 Hyperlipidemia, unspecified; F41.9 Anxiety disorder, unspecified; F32.9 Major depressive disorder, single episode, unspecified; F17.200 Nicotine dependence, unspecified, uncomplicated; Z79.84 Long term (current) use of oral hypoglycemic drugs; Z79.899 Other long term (current) drug therapy; Z91.012 Allergy to eggs; Z91.011 Allergy to milk products
CPT/HCPCS: 87070; 87205; 99284; 10060; J2001

== ENCOUNTER → 2018-08-08 | Outpatient (CLI) | payer OTHER ==
--- NOTE | 2018-08-08 15:34 | MR ---
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 Diffusion weighted imaging is performed. Subsequent multiplanar, multisequence imaging of the cervical spine. FINDINGS: BRAIN: No evidence for acute infarction, hemorrhage, mass, mass effect, midline shift, herniation, effacemen t of basal cisterns, or extra-axial fluid collection. The ventricles and sulci are age-appropriate. Major intracranial flow voids are intact. T2/FLAIR weighted sequences show trace scattered foci of bright white matter change in both cerebral hemispheres, approximately 2 on each side located within the subcortical region of the frontal lobes. Midline structures demonstrate normal morphology. The craniocervical junction is normal. Scattered moderate mucosal thickening ethmoid air cells. Globes are intact. CERVICAL SPINE: NO craniocervical junction abnormality, predental space widening, or prevertebral soft tissue swellin g. Straightening of the normal cervical lordosis but with preserved alignment. Mild heterogeneous marrow signal without suspicious bone marrow replacement. There is a component of mild congenital spinal canal stenosis throughout the cervical spine with AP c anal dimension of 1.0 cm. There is superimposed mild multilevel degenerative disc disease characterized by variable disc desicc ation and posterior disc bulging. Additional scattered facet degenerative change. At C2-C3, mild facet arthropathy without significant canal or foraminal stenosis. At C3-C4, mild facet arthropathy with minimal posterior disc bulge impressing on the ventral thecal s ac and minimally flattening the ventral cord accentuating the mild congenital spinal canal narrowing. No significant neuroforaminal stenosis. At C4-C5, mild congenital canal narrowing with mild facet arthropathy. Changes result in minimal narr owing of the bilateral neuroforamen. At C5-C6, there is broad-based posterior disc bulge/disc osteophyte complex with facet arthropathy. C hanges result in minimal right neuroforaminal narrowing and mild to moderate overall spinal canal yo nosis with abutment of the ventral cord but no significant cord flattening. At C6-C7, broad-based lobulated disc osteophyte complex is present with moderate overall narrowing of the spinal canal with AP canal dimension of 6.9 mm. There is flattening of the ventral cord and zoie g with facet arthropathy, there is mild left neuroforaminal stenosis. At C7-T1, mild facet arthropathy without significant canal or foraminal stenosis. There is some patchy cord signal artifact without definite suspicious T2-weighted cord signal abnorma lity when correlating with the axial series. IMPRESSION: BRAIN: 1. No acute intracranial abnormality seen. 2. Trace burden of T2 bright white matter change with a couple punctate foci in the subcortical regio n of each cerebral hemisphere. Nonspecific findings which may relate to very early changes of chronic small vessel ischemic disease. Chronic migraines and early demyelinating disease are some other diff erential considerations. 3. Mild chronic ethmoid sinus disease. CERVICAL SPINE: 1. Congenital spinal canal narrowing with superimposed mild multilevel degenerative disc disease rafael acterized by disc desiccation and posterior disc bulging/disc osteophyte complex formation. 2. Additional scattered facet arthropathy. 3. Changes result in moderate overall spinal canal stenosis at C6-C7 with with abutment and flattenin g of the ventral cord but no carmelita cord compression. There is mild to moderate narrowing at C5-C6 and accentuation of the mild congenital canal narrowing at C3-C4. 4. Variable minimal to mild neural foraminal narrowing as outlined above.
== END | disposition home or self-care (01) ==
LOC: RADMRIMAIN 12:13
PROVIDERS: ATTEND Psychiatry & Neurology Neurology
DX: M99.72 Connective tissue and disc stenosis of intervertebral foramina of thoracic region (principal); M48.02 Spinal stenosis, cervical region; M50.30 Other cervical disc degeneration, unspecified cervical region; G24.3 Spasmodic torticollis; G43.909 Migraine, unspecified, not intractable, without status migrainosus; G37.9 Demyelinating disease of central nervous system, unspecified
CPT/HCPCS: 70551; 72141

== ENCOUNTER 2019-05-02 15:41 | Emergency (ER) | payer OTHER ==
[2019-05-02 16:10] LABS: Glucose,Whole Blood >600 mg/dL (75-99)
[2019-05-02] MEDS ORDERED: PANTOPRAZOLE 40 MG/10 ML VIAL IVP STA (16:21)
[2019-05-02] MEDS ORDERED: SODIUM CHLORIDE 0.9% 2,000 ML IV STA (16:21)
[2019-05-02] MEDS ORDERED: SODIUM CHLORIDE 0.9% 1,000 ML IV STA (16:21)
[2019-05-02 16:49] LABS: Basophils % (A) 0 %; Eosinophils # (A) 0.4 k/uL (0-0.7); Eosinophils % (A) 5 %; HCT 35.4 % (34.0-46.0); HGB 13.2 gm/dL (11.4-16.0); Lymphocytes # (A) 1.7 k/uL (1.0-4.8); Lymphocytes % (A) 22 %; MCH 33.6 pg (25.0-35.0); MCHC 37.4 g/dL (31.0-37.0); MCV 89.8 fL (80.0-100.0); Mean Platelet Volume 8.1; Monocytes # (A) 0.3 k/uL (0-1.0); Monocytes % (A) 4 %; Neutrophils % (A) 66 %; Platelet Count 233 k/uL (150-450); Poikilocytosis Slight; RBC 3.94 m/uL (3.80-5.40); RDW 14.4 % (11.5-15.5); WBC 7.6 k/uL (3.8-10.6)
[2019-05-02 16:56] LABS: ALT 81 U/L (4-34); AST 59 U/L (14-36); African American GFR (CKD) >90 (>60 ml/min/1.73 sqM); Albumin 3.9 g/dL (3.5-5.0); Alkaline Phosphatase 127 U/L (38-126); Amylase 43 U/L (30-110); Anion Gap 15 mmol/L; Blood Urea Nitrogen 18 mg/dL (7-17); Calcium 9.9 mg/dL (8.4-10.2); Carbon Dioxide 19 mmol/L (22-30); Chloride 91 mmol/L (98-107); Non-African American GFR(CKD) >90 (>60 ml/min/1.73 sqM); Potassium 4.9 mmol/L (3.5-5.1); Sodium 125 mmol/L (137-145); Total Bilirubin 0.5 mg/dL (0.2-1.3); Total Protein 7.9 g/dL (6.3-8.2)
[2019-05-02 16:59] LABS: Appearance,Urine Clear (Clear); Bacteria,Urine Rare /hpf; Bilirubin,Urine Negative (Negative); Blood,Urine Negative (Negative); Color,Urine Light Yellow; Glucose,Urine (UA) 4+ (Negative); Ketones,Urine Negative (Negative); Leukocyte Esterase,Urine Negative (Negative); Nitrite,Urine Negative (Negative); Protein,Urine 2+ (Negative); RBC,Urine <1 /hpf (0-5); Specific Gravity,Urine 1.028 (1.001-1.035); Squamous Epithelial Cell,Urine 1 /hpf (0-4); Urobilinogen,Urine <2.0 mg/dL (<2.0); WBC,Urine 1 /hpf (0-5)
[2019-05-02 17:05] LABS: Glucose 597 mg/dL (74-99)
--- NOTE | 2019-05-02 17:25 | ED ---
General Adult HPI - General Chief complaint: Recheck/Abnormal Lab/Rx Stated complaint: High Blood Sugar Time Seen by Provider: 05/02/19 16:12 Source: patient, RN notes reviewed, old records reviewed Mode of arrival: ambulatory Limitations: no limitations - History of Present Illness Initial comments: Patient is a 38-year-old female who presents emergency Department today with complaints of blurry vision elevated blood sugar increased thirst for the past few weeks. It been significantly worse over the past week. She's been out of her medications including glipizide and metformin. She reports that her blood sugar read high today when she checked it. - Related Data Home Medications Medication Instructions Recorded Confirmed Gemfibrozil [Lopid] 600 mg PO AC-BID 07/30/13 03/14/19 Glimepiride [Amaryl] 4 mg PO BID 07/30/13 03/14/19 Hydrochlorothiazide [Hydrodiuril] 12.5 mg PO DAILY 07/30/13 03/14/19 Lisinopril [Zestril] 20 mg PO DAILY 07/30/13 03/14/19 metFORMIN HCL 1,000 mg PO BID 07/30/13 03/14/19 Albuterol Inhaler [Ventolin Hfa 1 - 2 puff INHALATION RT-Q6H PRN 09/11/14 03/14/19 Inhaler] Albuterol Nebulized [Ventolin 2.5 mg INHALATION RT-Q6H PRN 09/11/14 03/14/19 Nebulized] Ibuprofen [Motrin] 200 - 800 mg PO Q6HR PRN 10/28/16 03/14/19 Simvastatin [Zocor] 10 mg PO HS 10/28/16 03/14/19 Sertraline [Zoloft] 25 mg PO DAILY 03/30/17 03/14/19 Previous Rx's Medication Instructions Recorded Omeprazole [PriLOSEC] 20 mg PO AC-BID #60 cap 03/30/17 Sulfamethox-Tmp 800-160Mg [Bactrim 2 tab PO Q12HR #40 tab 06/26/18 DS 800-160 mg] Gemfibrozil [Lopid] 600 mg PO AC-BID #60 tablet 05/02/19 Glimepiride [Amaryl] 4 mg PO DAILY #60 tab 03/10/20 Hydrochlorothiazide 12.5 mg PO DAILY #30 capsule 05/02/19 Lisinopril 20 mg PO DAILY #30 tab 05/02/19 Simvastatin [Zocor] 10 mg PO HS #30 tab 05/02/19 metFORMIN HCL 1,000 mg PO BID #60 tab 05/02/19 Allergies Allergy/AdvReac Type Severity Reaction Status Date / Time egg Allergy Unknown Verified 05/02/19 16:07 milk AdvReac Cough Verified 05/02/19 16:07 Review of Systems ROS Statement: Those systems with pertinent positive or pertinent negative responses have been documented in the HPI. ROS Other: All systems not noted in ROS Statement are negative. Past Medical History Past Medical History: Diabetes Mellitus, Hyperlipidemia, Hypertension Additional Past Medical History / Comment(s): BRONCHITIS, SINUSITIS History of Any Multi-Drug Resistant Organisms: None Reported Additional Past Surgical History / Comment(s): nose surgery-POLYPS REMOVED Past Anesthesia/Blood Transfusion Reactions: No Reported Reaction Past Psychological History: ADD/ADHD, Anxiety, Depression Smoking Status: Current every day smoker Past Alcohol Use History: None Reported Past Drug Use History: None Reported - Past Family History Father History Unknown: Yes Mother Family Medical History: Congestive Heart Failure (CHF), Diabetes Mellitus, Hyperlipidemia, Hypertension General Exam - General Exam Comments Initial Comments: Alert and oriented 38-year-old female. No distress. General: Well appearing, well nourished, in no distress. Oriented x 3, normal mood and affect . Ambulating without difficulty. Skin: Good turgor, no rash, unusual bruising or prominent lesions Hair: Normal texture and distribution. HEENT: Head: Normocephalic, atraumatic, no visible or palpable masses, depressions, or scaring. Eyes: Visual acuity intact, conjunctiva clear, sclera non-icteric, EOM intact, PERRL. Ears: EACs clear, TMs translucent & cone of light visualized. hearing intact. Nose: No external lesions, mucosa non-inflamed, septum and turbinates normal Mouth: Mucous membranes moist, no mucosal lesions. Teeth/Gums: No obvious caries or periodontal disease. No gingival inflammation or significant resorption. Pharynx: Mucosa non-inflamed, no tonsillar hypertrophy or exudate Neck: Supple, without lesions, bruits, or adenopathy, thyroid non-enlarged and non-tender Heart: No cardiomegaly or thrills; regular rate and rhythm, no murmur or gallop Lungs: Clear to auscultation and percussion Abdomen: Bowel sounds normal, no tenderness, organomegaly, masses, or hernia Back: Spine normal without deformity or tenderness, no CVA tenderness Musculoskeletal: Normal gait and station. No misalignment, asymmetry, crepitation, defects, tenderness, masses, effusions, decreased range of motion, instability, atrophy or abnormal strength or tone in the head, neck, spine, ribs, pelvis or extremities. Neurologic: CN 2-12 normal. Sensation to pain, touch, and proprioception normal. DTRs normal in upper and lower extremities. No pathologic reflexes. Psychiatric: Oriented X3, intact recent and remote memory, judgment and insight, normal mood and affect. Limitations: no limitations Course Vital Signs 05/02/19 05/02/19 05/02/19 16:03 17:39 18:37 Temperature 98.1 F Pulse Rate 85 105 H 87 Respiratory 20 16 16 Rate Blood Pressure 176/88 168/102 167/112 O2 Sat by Pulse 97 99 99 Oximetry 05/02/19 05/02/19 05/02/19 18:39 19:52 20:35 Temperature 98.2 F Pulse Rate 94 99 99 Respiratory 16 18 16 Rate Blood Pressure 134/96 149/94 O2 Sat by Pulse 97 95 97 Oximetry Medical Decision Making - Medical Decision Making 38-year-old female presents today for evaluation with concern for elevated blood sugar. Patient has been out of her blood pressure and diabetes medications for over a week. Her glucometer read high today. Patient reports increased thirst. Patient's blood glucose was 597. She was given IV fluids. She does have pseudohyponatremia. Patient was given insulin, as well as given a dose of blood pressure medication. Discussed writing prescription to refill her medications until she can follow-up with a new primary care physician. Patient is agreeable to treatment plan and will comply. Return parameters were discussed. - Lab Data Result diagrams: 05/02/19 16:34 05/02/19 16:34 Lab Results 05/02/19 05/02/19 05/02/19 Range/Units 16:05 16:34 16:34 WBC 7.6 (3.8-10.6) k/uL RBC 3.94 (3.80-5.40) m/uL Hgb 13.2 (11.4-16.0) gm/dL Hct 35.4 (34.0-46.0) % MCV 89.8 (80.0-100.0) fL MCH 33.6 (25.0-35.0) pg MCHC 37.4 H (31.0-37.0) g/dL RDW 14.4 (11.5-15.5) % Plt Count 233 (150-450) k/uL Neutrophils % 66 % Lymphocytes % 22 % Monocytes % 4 % Eosinophils % 5 % Basophils % 0 % Neutrophils # 5.0 (1.3-7.7) k/uL Lymphocytes # 1.7 (1.0-4.8) k/uL Monocytes # 0.3 (0-1.0) k/uL Eosinophils # 0.4 (0-0.7) k/uL Basophils # 0.0 (0-0.2) k/uL Poikilocytosis Slight Sodium (137-145) mmol/L Potassium (3.5-5.1) mmol/L Chloride (98-107) mmol/L Carbon Dioxide (22-30) mmol/L Anion Gap mmol/L BUN (7-17) mg/dL Creatinine (0.52-1.04) mg/dL Est GFR (CKD-EPI)AfAm (>60 ml/min/1.73 sqM) Est GFR (CKD-EPI)NonAf (>60 ml/min/1.73 sqM) Glucose (74-99) mg/dL POC Glucose (mg/dL) >600 H (75-99) mg/dL POC Glu [employer] Mel Torres Calcium (8.4-10.2) mg/dL Total Bilirubin (0.2-1.3) mg/dL AST (14-36) U/L ALT (4-34) U/L Alkaline Phosphatase (38-126) U/L Total Protein (6.3-8.2) g/dL Albumin (3.5-5.0) g/dL Amylase (30-110) U/L Lipase (23-300) U/L Urine Color Light Yellow Urine Appearance Clear (Clear) Urine pH 6.0 (5.0-8.0) Ur Specific [place] 1.028 (1.001-1.035) Urine Protein 2+ H (Negative) Urine Glucose (UA) 4+ H (Negative) Urine Ketones Negative (Negative) Urine Blood Negative (Negative) Urine Nitrite Negative (Negative) Urine Bilirubin Negative (Negative) Urine Urobilinogen <2.0 (<2.0) mg/dL Ur Leukocyte Esterase Negative (Negative) Urine RBC <1 (0-5) /hpf Urine WBC 1 (0-5) /hpf Ur Squamous Epith Cells 1 (0-4) /hpf Urine Bacteria Rare H (None) /hpf Acetone, Qual (Negative) 05/02/19 05/02/19 05/02/19 Range/Units 16:34 18:42 19:19 WBC (3.8-10.6) k/uL RBC (3.80-5.40) m/uL Hgb (11.4-16.0) gm/dL Hct (34.0-46.0) % MCV (80.0-100.0) fL MCH (25.0-35.0) pg MCHC (31.0-37.0) g/dL RDW (11.5-15.5) % Plt Count (150-450) k/uL Neutrophils % % Lymphocytes % % Monocytes % % Eosinophils % % Basophils % % Neutrophils # (1.3-7.7) k/uL Lymphocytes # (1.0-4.8) k/uL Monocytes # (0-1.0) k/uL Eosinophils # (0-0.7) k/uL Basophils # (0-0.2) k/uL Poikilocytosis Sodium 125 L (137-145) mmol/L Potassium 4.9 (3.5-5.1) mmol/L Chloride 91 L (98-107) mmol/L Carbon Dioxide 19 L (22-30) mmol/L Anion Gap 15 mmol/L BUN 18 H (7-17) mg/dL Creatinine 0.62 (0.52-1.04) mg/dL Est GFR (CKD-EPI)AfAm >90 (>60 ml/min/1.73 sqM) Est GFR (CKD-EPI)NonAf >90 (>60 ml/min/1.73 sqM) Glucose 597 H* (74-99) mg/dL POC Glucose (mg/dL) 480 H 427 H (75-99) mg/dL POC Glu [employer] ID Arthur Myrick Jessica Calcium 9.9 (8.4-10.2) mg/dL Total Bilirubin 0.5 (0.2-1.3) mg/dL AST 59 H (14-36) U/L ALT 81 H (4-34) U/L Alkaline Phosphatase 127 H (38-126) U/L Total Protein 7.9 (6.3-8.2) g/dL Albumin 3.9 (3.5-5.0) g/dL Amylase 43 (30-110) U/L Lipase 106 (23-300) U/L Urine Color Urine Appearance (Clear) Urine pH (5.0-8.0) Ur Specific [place] (1.001-1.035) Urine Protein (Negative) Urine Glucose (UA) (Negative) Urine Ketones (Negative) Urine Blood (Negative) Urine Nitrite (Negative) Urine Bilirubin (Negative) Urine Urobilinogen (<2.0) mg/dL Ur Leukocyte Esterase (Negative) Urine RBC (0-5) /hpf Urine WBC (0-5) /hpf Ur Squamous Epith Cells (0-4) /hpf Urine Bacteria (None) /hpf Acetone, Qual Negative (Negative) 05/02/19 Range/Units 20:31 WBC (3.8-10.6) k/uL RBC (3.80-5.40) m/uL Hgb (11.4-16.0) gm/dL Hct (34.0-46.0) % MCV (80.0-100.0) fL MCH (25.0-35.0) pg MCHC (31.0-37.0) g/dL RDW (11.5-15.5) % Plt Count (150-450) k/uL Neutrophils % % Lymphocytes % % Monocytes % % Eosinophils % % Basophils % % Neutrophils # (1.3-7.7) k/uL Lymphocytes # (1.0-4.8) k/uL Monocytes # (0-1.0) k/uL Eosinophils # (0-0.7) k/uL Basophils # (0-0.2) k/uL Poikilocytosis Sodium (137-145) mmol/L Potassium (3.5-5.1) mmol/L Chloride (98-107) mmol/L Carbon Dioxide (22-30) mmol/L Anion Gap mmol/L BUN (7-17) mg/dL Creatinine (0.52-1.04) mg/dL Est GFR (CKD-EPI)AfAm (>60 ml/min/1.73 sqM) Est GFR (CKD-EPI)NonAf (>60 ml/min/1.73 sqM) Glucose (74-99) mg/dL POC Glucose (mg/dL) 389 H (75-99) mg/dL POC Glu [employer] ID Al Bertrand Calcium (8.4-10.2) mg/dL Total Bilirubin (0.2-1.3) mg/dL AST (14-36) U/L ALT (4-34) U/L Alkaline Phosphatase (38-126) U/L Total Protein (6.3-8.2) g/dL Albumin (3.5-5.0) g/dL Amylase (30-110) U/L Lipase (23-300) U/L Urine Color Urine Appearance (Clear) Urine pH (5.0-8.0) Ur Specific [place] (1.001-1.035) Urine Protein (Negative) Urine Glucose (UA) (Negative) Urine Ketones (Negative) Urine Blood (Negative) Urine Nitrite (Negative) Urine Bilirubin (Negative) Urine Urobilinogen (<2.0) mg/dL Ur Leukocyte Esterase (Negative) Urine RBC (0-5) /hpf Urine WBC (0-5) /hpf Ur Squamous Epith Cells (0-4) /hpf Urine Bacteria (None) /hpf Acetone, Qual (Negative) Disposition Clinical Impression: Hyperglycemia, Encounter for medication refill Disposition: HOME SELF-CARE Condition: Good Instructions (If sedation given, give patient instructions): Type 2 Diabetes in Adults: New Diagnosis (ED), Basic Carbohydrate Counting (DC), Medicine Refill (ED) Additional Instructions: Patient has a follow-up with new primary care physician regards to further prescription refills. Monitor you diet and take the medications as discussed. Return to the emergency department if any alarming signs or symptoms occur. Prescriptions: Glimepiride [Amaryl] 4 mg PO DAILY #60 tab Hydrochlorothiazide 12.5 mg PO DAILY #30 capsule Lisinopril 20 mg PO DAILY #30 tab Gemfibrozil [Lopid] 600 mg PO AC-BID #60 tablet metFORMIN HCL 1,000 mg PO BID #60 tab Simvastatin [Zocor] 10 mg PO HS #30 tab Is patient prescribed a controlled substance at d/c from ED?: No Referrals: Brian Bonner MD [Primary Care Provider] - 1-2 days Time of Disposition: 19:01
[2019-05-02] MEDS ORDERED: LABETALOL 5 MG/ML VIAL MDV IVP STA (17:53)
[2019-05-02] MEDS ORDERED: INSULIN REGULAR 100 UNIT/ML VIAL IV ONE ×2 (17:53→19:30)
[2019-05-02 18:44] LABS: Glucose,Whole Blood 480 mg/dL (75-99)
[2019-05-02 19:21] LABS: Glucose,Whole Blood 427 mg/dL (75-99)
[2019-05-02 19:54] VITALS: BP 149/94; PULSE 99
[2019-05-02 20:35] LABS: Glucose,Whole Blood 389 mg/dL (75-99)
[2019-05-02 20:37] VITALS: RESP 16; TEMP 98.2
== END 2019-05-02 20:41 | disposition home or self-care (01) ==
LOC: EC 15:41
DX: E11.65 Type 2 diabetes mellitus with hyperglycemia (principal); Z76.0 Encounter for issue of repeat prescription; T38.3X6A Underdosing of insulin and oral hypoglycemic [antidiabetic] drugs, initial encounter; Z91.138 Patient's unintentional underdosing of medication regimen for other reason; E78.5 Hyperlipidemia, unspecified; I10 Essential (primary) hypertension; F32.9 Major depressive disorder, single episode, unspecified; F41.9 Anxiety disorder, unspecified; F17.200 Nicotine dependence, unspecified, uncomplicated; Z91.011 Allergy to milk products; Z91.012 Allergy to eggs; Z79.84 Long term (current) use of oral hypoglycemic drugs; Z79.899 Other long term (current) drug therapy; Z83.3 Family history of diabetes mellitus
CPT/HCPCS: 36415; 80053; 82150; 82009; 83690; 85025; 81001; 99285; 96374; 96375; 96361 ×4; C9113

== ENCOUNTER → 2019-06-29 | Outpatient (CLI) | payer OTHER ==
--- NOTE | 2019-06-29 11:41 | US ---
EXAMINATION TYPE: US liver DATE OF EXAM: 06/29/2019 COMPARISON: NONE CLINICAL HISTORY: R94.5 Abnormal results of liver function studies. EXAM MEASUREMENTS: Liver Length: 20.0 cm Gallbladder Wall: 0.1 cm CBD: 0.3 cm Right Kidney: 9.7 x 4.2 x 4.9 cm Pancreas: portions visualized appear wnl, partially obscured by bowel gas Liver: Increased attenuation, enlarged Gallbladder: wnl Evidence for sonographic Caldera's sign: no CBD: wnl Right Kidney: wnl IMPRESSION: Hepatomegaly with underlying fatty hepatic infiltration.
== END | disposition home or self-care (01) ==
LOC: RADUSWWP 10:03
PROVIDERS: ATTEND Family Medicine
DX: K76.0 Fatty (change of) liver, not elsewhere classified (principal); Z91.011 Allergy to milk products; Z91.012 Allergy to eggs
CPT/HCPCS: 76705

== ENCOUNTER 2020-02-24 13:53 | Emergency (ER) | payer OTHER ==
[2020-02-24 13:59] VITALS: TEMP 98.7
[2020-02-24] MEDS ORDERED: ONDANSETRON 4 MG/2 ML VIAL IVP STA (14:20)
[2020-02-24] MEDS ORDERED: SODIUM CHLORIDE 0.9% 1,000 ML IV STA (14:20)
--- NOTE | 2020-02-24 14:27 | ED ---
General Adult HPI - General Chief complaint: Abdominal Pain Stated complaint: Vomiting,Abd Pain,Dizzy Time Seen by Provider: 02/24/20 14:03 Source: patient, RN notes reviewed Mode of arrival: ambulatory Limitations: no limitations - History of Present Illness Initial comments: 39-year-old female with a past medical history of diabetes, hyperlipidemia, h ypertension presents to the emergency room for a chief complaint of nausea vomiting diarrhea. Patient has had nausea vomiting diarrhea for about 3-4 days now. She reports that she is vomiting about 3 times per day. She is having watery diarrhea about 5 times per day. States she has squeezing cramping pain in her abdomen that comes and goes. She denies fevers or chills. She states she does feel dehydrated. She denies melena or hematochezia.Patient has no other complaints at this time including shortness of breath, chest pain, abdominal pain, nausea or vomiting, headache, or visual changes. - Related Data Home Medications Medication Instructions Recorded Confirmed Glimepiride [Amaryl] 4 mg PO BID 07/30/13 03/14/19 gemfibroziL [Lopid] 600 mg PO AC-BID 07/30/13 03/14/19 hydroCHLOROthiazide [Hydrodiuril] 12.5 mg PO DAILY 07/30/13 03/14/19 lisinopriL [Zestril] 20 mg PO DAILY 07/30/13 03/14/19 metFORMIN HCL 1,000 mg PO BID 07/30/13 03/14/19 Albuterol Inhaler (Mhu) [Ventolin 1 - 2 puff INHALATION RT-Q6H PRN 09/11/14 03/14/19 Hfa Inhaler (Mhu)] Albuterol Nebulized [Ventolin 2.5 mg INHALATION RT-Q6H PRN 09/11/14 03/14/19 Nebulized] Ibuprofen [Motrin] 200 - 800 mg PO Q6HR PRN 10/28/16 03/14/19 Simvastatin [Zocor] 10 mg PO HS 10/28/16 03/14/19 Sertraline [Zoloft] 25 mg PO DAILY 03/30/17 03/14/19 Previous Rx's Medication Instructions Recorded Omeprazole [PriLOSEC] 20 mg PO AC-BID #60 cap 03/30/17 Sulfamethox-Tmp 800-160Mg [Bactrim 2 tab PO Q12HR #40 tab 06/26/18 DS 800-160 mg] Glimepiride [Amaryl] 4 mg PO DAILY #60 tab 05/02/19 Hydrochlorothiazide 12.5 mg PO DAILY #30 capsule 05/02/19 [hydroCHLOROthiazide] Simvastatin [Zocor] 10 mg PO HS #30 tab 05/02/19 gemfibroziL [Lopid] 600 mg PO AC-BID #60 tablet 05/02/19 lisinopriL 20 mg PO DAILY #30 tab 05/02/19 metFORMIN HCL 1,000 mg PO BID #60 tab 05/02/19 Allergies Allergy/AdvReac Type Severity Reaction Status Date / Time cinnamon Allergy Anaphylaxis Verified 02/24/20 13:59 egg Allergy Unknown Verified 05/02/19 16:07 milk AdvReac Cough Verified 05/02/19 16:07 Review of Systems ROS Statement: Those systems with pertinent positive or pertinent negative responses have been documented in the HPI. ROS Other: All systems not noted in ROS Statement are negative. Past Medical History Past Medical History: Diabetes Mellitus, Hyperlipidemia, Hypertension Additional Past Medical History / Comment(s): BRONCHITIS, SINUSITIS History of Any Multi-Drug Resistant Organisms: None Reported Additional Past Surgical History / Comment(s): nose surgery-POLYPS REMOVED Past Anesthesia/Blood Transfusion Reactions: No Reported Reaction Past Psychological History: ADD/ADHD, Anxiety, Depression Smoking Status: Current every day smoker Past Alcohol Use History: None Reported Past Drug Use History: None Reported - Past Family History Father History Unknown: Yes Mother Family Medical History: Congestive Heart Failure (CHF), Diabetes Mellitus, Hyperlipidemia, Hypertension General Exam Limitations: no limitations General appearance: alert, in no apparent distress Head exam: Present: atraumatic, normocephalic Eye exam: Present: normal appearance, PERRL, EOMI. Absent: scleral icterus, conjunctival injection, periorbital swelling ENT exam: Present: normal exam, mucous membranes moist Neck exam: Present: normal inspection, full ROM. Absent: tenderness, meningismus, lymphadenopathy Respiratory exam: Present: normal lung sounds bilaterally. Absent: respiratory distress, wheezes, rales, rhonchi, stridor Cardiovascular Exam: Present: regular rate, normal rhythm, normal heart sounds. Absent: systolic murmur, diastolic murmur, rubs, gallop, clicks GI/Abdominal exam: Present: soft, normal bowel sounds. Absent: distended, tenderness (No abdominal tenderness), guarding, rebound, rigid Expanded GI/Abdominal exam: Absent: psoas sign, obturator sign, heel tap sign, Caldera's sign, Rovsing's sign, tenderness at [place]'s Point Back exam: Absent: CVA tenderness (R), CVA tenderness (L) Neurological exam: Present: alert Course Vital Signs 02/24/20 02/24/20 13:56 15:31 Temperature 98.7 F Pulse Rate 110 H 90 Respiratory 18 17 Rate Blood Pressure 140/83 115/84 O2 Sat by Pulse 98 99 Oximetry Medical Decision Making - Medical Decision Making Patient presents initially tachycardic however this did improve throughout her stay. Could be related to dehydration or anxiety. Physical exam is unremarkable. Patient laying of nausea vomiting diarrhea as well as abdominal cramping. Patient does not have any abdominal tenderness. CBC is unremarkable. White blood cell count is normal at 7.4. CMP does show evidence of hyperglycemia which patient has a history of given her history of diabetes. Anion gap is 7. Urinalysis does not show any obvious evidence of infection. HCG is negative. coronavirus is negative. Patient was reevaluated and repeat abdominal exam was performed. Again, no abdominal tenderness whatsoever. Negative obturator and Rovsing sign. Negative Caldera sign. At this time patient is requesting discharge home. I will give her a starter pack of Zofran and educated her to drink any fluids. If her pain worsens or she develops fevers she will return to the emergency room. If she has any other worsening symptoms she will return as well. Otherwise she will follow-up with her doctor this week. I discussed this case with attending Dr. Mary who agrees with this assessment and treatment plan. - Lab Data Result diagrams: 02/24/20 14:34 02/24/20 14:34 Lab Results 02/24/20 02/24/20 02/24/20 Range/Units 14:34 14:34 14:34 WBC 7.4 (3.8-10.6) k/uL RBC 3.81 (3.80-5.40) m/uL Hgb 12.7 (11.4-16.0) gm/dL Hct 34.8 (34.0-46.0) % MCV 91.2 (80.0-100.0) fL MCH 33.4 (25.0-35.0) pg MCHC 36.6 (31.0-37.0) g/dL RDW 13.8 (11.5-15.5) % Plt Count 191 (150-450) k/uL MPV 8.0 Neutrophils % 54 % Lymphocytes % 35 % Monocytes % 4 % Eosinophils % 4 % Basophils % 1 % Neutrophils # 4.0 (1.3-7.7) k/uL Lymphocytes # 2.6 (1.0-4.8) k/uL Monocytes # 0.3 (0-1.0) k/uL Eosinophils # 0.3 (0-0.7) k/uL Basophils # 0.1 (0-0.2) k/uL Sodium 133 L (137-145) mmol/L Potassium 4.2 (3.5-5.1) mmol/L Chloride 102 (98-107) mmol/L Carbon Dioxide 24 (22-30) mmol/L Anion Gap 7 mmol/L BUN 13 (7-17) mg/dL Creatinine 0.69 (0.52-1.04) mg/dL Est GFR (CKD-EPI)AfAm >90 (>60 ml/min/1.73 sqM) Est GFR (CKD-EPI)NonAf >90 (>60 ml/min/1.73 sqM) Glucose 275 H (74-99) mg/dL Calcium 9.1 (8.4-10.2) mg/dL Total Bilirubin 0.3 (0.2-1.3) mg/dL AST 28 (14-36) U/L ALT 42 H (4-34) U/L Alkaline Phosphatase 68 (38-126) U/L Total Protein 6.8 (6.3-8.2) g/dL Albumin 3.8 (3.5-5.0) g/dL Amylase 73 (30-110) U/L Lipase 301 H (23-300) U/L Urine Color Yellow Urine Appearance Clear (Clear) Urine pH 6.0 (5.0-8.0) Ur Specific [place] 1.027 (1.001-1.035) Urine Protein 2+ H (Negative) Urine Glucose (UA) 4+ H (Negative) Urine Ketones Trace H (Negative) Urine Blood Negative (Negative) Urine Nitrite Negative (Negative) Urine Bilirubin Negative (Negative) Urine Urobilinogen <2.0 (<2.0) mg/dL Ur Leukocyte Esterase Negative (Negative) Urine RBC 1 (0-5) /hpf Urine WBC 1 (0-5) /hpf Hyaline Casts 1 (0-2) /lpf Urine Mucus Rare H (None) /hpf Urine HCG, Qual (Not Detectd) Coronavirus (PCR) (Not Detectd) 02/24/20 02/24/20 Range/Units 14:34 15:00 WBC (3.8-10.6) k/uL RBC (3.80-5.40) m/uL Hgb (11.4-16.0) gm/dL Hct (34.0-46.0) % MCV (80.0-100.0) fL MCH (25.0-35.0) pg MCHC (31.0-37.0) g/dL RDW (11.5-15.5) % Plt Count (150-450) k/uL MPV Neutrophils % % Lymphocytes % % Monocytes % % Eosinophils % % Basophils % % Neutrophils # (1.3-7.7) k/uL Lymphocytes # (1.0-4.8) k/uL Monocytes # (0-1.0) k/uL Eosinophils # (0-0.7) k/uL Basophils # (0-0.2) k/uL Sodium (137-145) mmol/L Potassium (3.5-5.1) mmol/L Chloride (98-107) mmol/L Carbon Dioxide (22-30) mmol/L Anion Gap mmol/L BUN (7-17) mg/dL Creatinine (0.52-1.04) mg/dL Est GFR (CKD-EPI)AfAm (>60 ml/min/1.73 sqM) Est GFR (CKD-EPI)NonAf (>60 ml/min/1.73 sqM) Glucose (74-99) mg/dL Calcium (8.4-10.2) mg/dL Total Bilirubin (0.2-1.3) mg/dL AST (14-36) U/L ALT (4-34) U/L Alkaline Phosphatase (38-126) U/L Total Protein (6.3-8.2) g/dL Albumin (3.5-5.0) g/dL Amylase (30-110) U/L Lipase (23-300) U/L Urine Color Urine Appearance (Clear) Urine pH (5.0-8.0) Ur Specific [place] (1.001-1.035) Urine Protein (Negative) Urine Glucose (UA) (Negative) Urine Ketones (Negative) Urine Blood (Negative) Urine Nitrite (Negative) Urine Bilirubin (Negative) Urine Urobilinogen (<2.0) mg/dL Ur Leukocyte Esterase (Negative) Urine RBC (0-5) /hpf Urine WBC (0-5) /hpf Hyaline Casts (0-2) /lpf Urine Mucus (None) /hpf Urine HCG, Qual Not Detected (Not Detectd) Coronavirus (PCR) Not Detected (Not Detectd) Disposition Clinical Impression: Nausea vomiting and diarrhea Disposition: HOME SELF-CARE Condition: Good Instructions (If sedation given, give patient instructions): Abdominal Pain (ED) Additional Instructions: Please drink plenty of fluids. Please take Zofran as needed for nausea up to every 8 hours. Follow-up with your doctor next week. If he develop any worsening symptoms such as worsening abdominal pain, fevers, or inability to drink liquids return to the emergency room. Is patient prescribed a controlled substance at d/c from ED?: No Referrals: Brian Bonner MD [Primary Care Provider] - 1-2 days Time of Disposition: 15:59
[2020-02-24 14:46] LABS: Basophils # (A) 0.1 k/uL (0-0.2); Basophils % (A) 1 %; Eosinophils # (A) 0.3 k/uL (0-0.7); Eosinophils % (A) 4 %; HCT 34.8 % (34.0-46.0); HGB 12.7 gm/dL (11.4-16.0); Lymphocytes # (A) 2.6 k/uL (1.0-4.8); Lymphocytes % (A) 35 %; MCH 33.4 pg (25.0-35.0); MCHC 36.6 g/dL (31.0-37.0); MCV 91.2 fL (80.0-100.0); Monocytes # (A) 0.3 k/uL (0-1.0); Monocytes % (A) 4 %; Neutrophils % (A) 54 %; Platelet Count 191 k/uL (150-450); RBC 3.81 m/uL (3.80-5.40); RDW 13.8 % (11.5-15.5); WBC 7.4 k/uL (3.8-10.6)
[2020-02-24 14:50] LABS: Appearance,Urine Clear (Clear); Bilirubin,Urine Negative (Negative); Blood,Urine Negative (Negative); Color,Urine Yellow; Glucose,Urine (UA) 4+ (Negative); Hyaline Casts,Urine 1 /lpf (0-2); Ketones,Urine Trace (Negative); Leukocyte Esterase,Urine Negative (Negative); Mucus,Urine Rare /hpf; Nitrite,Urine Negative (Negative); Protein,Urine 2+ (Negative); RBC,Urine 1 /hpf (0-5); Specific Gravity,Urine 1.027 (1.001-1.035); Urobilinogen,Urine <2.0 mg/dL (<2.0); WBC,Urine 1 /hpf (0-5)
[2020-02-24] MEDS ORDERED: KETOROLAC 15 MG/ML 1 ML VIAL IVP STA (14:57)
[2020-02-24] MEDS ORDERED: DICYCLOMINE 10 MG/ML 2 ML AMP IM STA (14:57)
[2020-02-24 15:09] LABS: ALT 42 U/L (4-34); AST 28 U/L (14-36); African American GFR (CKD) >90 (>60 ml/min/1.73 sqM); Albumin 3.8 g/dL (3.5-5.0); Alkaline Phosphatase 68 U/L (38-126); Amylase 73 U/L (30-110); Anion Gap 7 mmol/L; Blood Urea Nitrogen 13 mg/dL (7-17); Calcium 9.1 mg/dL (8.4-10.2); Carbon Dioxide 24 mmol/L (22-30); Chloride 102 mmol/L (98-107); Glucose 275 mg/dL (74-99); Lipase 301 U/L (23-300); Non-African American GFR(CKD) >90 (>60 ml/min/1.73 sqM); Potassium 4.2 mmol/L (3.5-5.1); Sodium 133 mmol/L (137-145); Total Bilirubin 0.3 mg/dL (0.2-1.3); Total Protein 6.8 g/dL (6.3-8.2)
[2020-02-24 15:33] VITALS: BP 115/84; PULSE 90; RESP 17
[2020-02-24] MEDS ORDERED: ONDANSETRON 4 MG ODT STARTER PACK 2 TAB BTL PO STA (16:01)
== END 2020-02-24 16:10 | disposition home or self-care (01) ==
LOC: EC 13:53
DX: R11.2 Nausea with vomiting, unspecified (principal); R19.7 Diarrhea, unspecified; F41.9 Anxiety disorder, unspecified; F32.9 Major depressive disorder, single episode, unspecified; F90.9 Attention-deficit hyperactivity disorder, unspecified type; F17.200 Nicotine dependence, unspecified, uncomplicated; E78.5 Hyperlipidemia, unspecified; E11.65 Type 2 diabetes mellitus with hyperglycemia; I10 Essential (primary) hypertension; Z20.828 Contact with and (suspected) exposure to other viral communicable diseases; Z79.84 Long term (current) use of oral hypoglycemic drugs; Z79.899 Other long term (current) drug therapy; Z91.011 Allergy to milk products; Z91.012 Allergy to eggs; Z91.048 Other nonmedicinal substance allergy status
CPT/HCPCS: 36415; 80053; 82150; 83690; 85025; 81001; 81025; 87635; 99284; 96374; 96375; 96361 ×2; 96372; J0500; J2405; J1885; S0119

== ENCOUNTER → 2020-03-06 | Outpatient (CLI) | payer OTHER ==
--- NOTE | 2020-03-06 18:43 | MR ---
MRI CERVICAL SPINE: CLINICAL HISTORY: Spasmodic torticollis per order. Headache with neck pain for 2.5 years. TECHNIQUE: Multiplanar, multisequence imaging of the cervical spine is performed without IV contrast. COMPARISON: MRI cervical spine August 08, 2018. FINDINGS: Sagittal images of the cervical spine show the craniocervical junction to remaining within normal limits. The cervical and upper thoracic spinal cord remains normal in caliber and signal. Sta ble mild generalized AP canal stenosis. Alignment is redemonstrated straightened with grade 1 retroli sthesis C3 on C4 similar to prior. Mild disc space narrowing C6-C7 level redemonstrated. The vertebr al body and intravertebral disk heights otherwise remain normal. The bone marrow signal intensity re amita within normal limits. Axial images at C2-C3 level shows stable mild facet arthropathy. Axial images at C3-C4 level shows stable mild facet arthropathy with mild broad-based posterior disc protrusion minimally effacing the anterior thecal sac, patent bilateral neural foramina. Axial images at C4-C5 level show mild facet arthropathy with mild to minimal bilateral neural foramin al narrowing. No significant change from prior. Axial images at C5-C6 level show broad-based posterior disc protrusion mildly facing anterior thecal sac with right foraminal component causing [id number] right-sided neural foraminal narrowing sl ightly more prominent from prior. Axial images at C6-C7 level show largest disc herniation similar to prior with broad-based disc protr usion that has large left paracentral component effacing the anterolateral thecal sac of the ventral surface of spinal cord sagittal image 8 and axial image 16, there is mild to moderate left greater th an right bilateral neural foraminal narrowing. Axial images at C7-T1 level remain within normal limits. IMPRESSION: Multilevel degenerative changes most prominent at C6-C7 level with interval degenerative progression from 2019 MRI noted.
== END | disposition home or self-care (01) ==
LOC: RADMRIMAIN 16:43
PROVIDERS: ATTEND Psychiatry & Neurology Neurology
DX: M47.812 Spondylosis without myelopathy or radiculopathy, cervical region (principal); G24.3 Spasmodic torticollis
CPT/HCPCS: 72141

== ENCOUNTER → 2020-05-29 | Outpatient (CLI) | payer OTHER | LOC: LABWHC1 13:30 | PROVIDERS: ATTEND Family Medicine | DX: U07.1 COVID-19 (principal); R43.2 Parageusia; R43.0 Anosmia | CPT/HCPCS: U0003; C9803; U0005 ==

== ENCOUNTER → 2020-06-11 | Outpatient (CLI) | payer OTHER | END | disposition home or self-care (01) | LOC: LABWHC1 13:40 | PROVIDERS: ATTEND Family Medicine | DX: Z20.822 Contact with and (suspected) exposure to COVID-19 (principal) | CPT/HCPCS: U0003; C9803; U0005 ==

== ENCOUNTER 2021-03-07 19:59 | Emergency (ER) | payer OTHER ==
[2021-03-07 20:53] VITALS: TEMP 97.6
[2021-03-07] MEDS ORDERED: predniSONE 20 MG TAB PO STA (22:28)
[2021-03-07] MEDS ORDERED: MORPHINE SULFATE 4 MG/ML SYRINGE IM STA (22:29)
[2021-03-07] MEDS ORDERED: ORPHENADRINE 30 MG/ML 2 ML VIAL IM STA (22:29)
--- NOTE | 2021-03-07 22:43 | ED ---
General Adult HPI - General Chief complaint: Recheck/Abnormal Lab/Rx Stated complaint: Back/leg pain Time Seen by Provider: 03/07/21 21:46 Source: patient Mode of arrival: ambulatory Limitations: no limitations - History of Present Illness Initial comments: This patient is a 40-year-old woman who presents with complaint of low right back pain radiating to the right leg. The patient states that it started yesterday around midday. She notes that it is little bit worse today. She states that the pain is difficult to describe it as aching. She states that the pain seems to be better if she is not sitting. It is better standing or walking. She has not had any change in urination or bowel function. There is no saddle anesthesia. Patient denies any leg weakness or difficulty with ambulation. There was no preceding trauma Onset/Timin -: hour(s) Location: back, right, lower extremity Quality: aching Consistency: constant Improves with: other (Walking) Worsens with: other (Sitting) Associated Symptoms: denies other symptoms Treatments Prior to Arrival: none - Related Data Home Medications Medication Instructions Recorded Confirmed Glimepiride [Amaryl] 4 mg PO BID 07/30/13 03/14/19 gemfibroziL [Lopid] 600 mg PO AC-BID 07/30/13 03/14/19 hydroCHLOROthiazide [Hydrodiuril] 12.5 mg PO DAILY 07/30/13 03/14/19 lisinopriL [Zestril] 20 mg PO DAILY 07/30/13 03/14/19 metFORMIN HCL [Glucophage] 1,000 mg PO BID 07/30/13 03/14/19 Albuterol Inhaler (Mhu) [Ventolin 1 - 2 puff INHALATION RT-Q6H PRN 09/11/14 03/14/19 Hfa Inhaler (Mhu)] Albuterol Nebulized [Ventolin 2.5 mg INHALATION RT-Q6H PRN 09/11/14 03/14/19 Nebulized] Ibuprofen [Motrin] 200 - 800 mg PO Q6HR PRN 10/28/16 03/14/19 Simvastatin [Zocor] 10 mg PO HS 10/28/16 03/14/19 Sertraline [Zoloft] 25 mg PO DAILY 03/30/17 03/14/19 Previous Rx's Medication Instructions Recorded Omeprazole [PriLOSEC] 20 mg PO AC-BID #60 cap 03/30/17 Sulfamethox-Tmp 800-160Mg [Bactrim 2 tab PO Q12HR #40 tab 06/26/18 DS 800-160 mg] Glimepiride [Amaryl] 4 mg PO DAILY #60 tab 05/02/19 Hydrochlorothiazide 12.5 mg PO DAILY #30 capsule 05/02/19 [hydroCHLOROthiazide] Simvastatin [Zocor] 10 mg PO HS #30 tab 05/02/19 gemfibroziL [Lopid] 600 mg PO AC-BID #60 tablet 05/02/19 lisinopriL 20 mg PO DAILY #30 tab 05/02/19 metFORMIN HCL [Glucophage] 1,000 mg PO BID #60 tab 05/02/19 Methocarbamol [Robaxin-750] 750 mg PO TID PRN #30 tablet 03/07/21 predniSONE [Deltasone] 20 mg PO BID #8 tab 03/07/21 Allergies Allergy/AdvReac Type Severity Reaction Status Date / Time cinnamon Allergy Anaphylaxis Verified 03/07/21 20:53 egg Allergy Unknown Verified 03/07/21 20:53 milk AdvReac Cough Verified 03/07/21 20:53 Review of Systems ROS Statement: Those systems with pertinent positive or pertinent negative responses have been documented in the HPI. ROS Other: All systems not noted in ROS Statement are negative. Constitutional: Denies: fever, chills, weakness Respiratory: Denies: cough, dyspnea Cardiovascular: Denies: chest pain, palpitations Gastrointestinal: Denies: abdominal pain, vomiting, diarrhea, constipation Genitourinary: Denies: dysuria, frequency, hematuria Musculoskeletal: Reports: as per HPI, back pain Skin: Denies: rash Neurological: Denies: weakness, numbness, abnormal gait Past Medical History Past Medical History: Diabetes Mellitus, Hyperlipidemia, Hypertension Additional Past Medical History / Comment(s): BRONCHITIS, SINUSITIS History of Any Multi-Drug Resistant Organisms: None Reported Additional Past Surgical History / Comment(s): nose surgery-POLYPS REMOVED Past Anesthesia/Blood Transfusion Reactions: No Reported Reaction Past Psychological History: ADD/ADHD, Anxiety, Depression Smoking Status: Current every day smoker Past Alcohol Use History: None Reported Past Drug Use History: None Reported - Past Family History Father History Unknown: Yes Mother Family Medical History: Congestive Heart Failure (CHF), Diabetes Mellitus, Hyperlipidemia, Hypertension General Exam Limitations: no limitations General appearance: alert Neck exam: Present: normal inspection, full ROM. Absent: tenderness, meningismu s Respiratory exam: Present: normal lung sounds bilaterally. Absent: respiratory distress, wheezes, rales, rhonchi, stridor Cardiovascular Exam: Present: regular rate, normal rhythm, normal heart sounds. Absent: systolic murmur, diastolic murmur, rubs, gallop GI/Abdominal exam: Present: soft. Absent: distended, tenderness, guarding, rebound, rigid, pulsatile mass Extremities exam: Present: normal inspection, normal capillary refill. Absent: pedal edema, calf tenderness Back exam: Absent: CVA tenderness (R), CVA tenderness (L), paraspinal tenderness, vertebral tenderness Neurological exam: Present: alert, reflexes normal. Absent: motor sensory deficit Skin exam: Present: warm, dry, intact, normal color. Absent: rash Course Vital Signs 03/07/21 03/07/21 20:51 22:41 Temperature 97.6 F Pulse Rate 115 H 110 H Respiratory 20 18 Rate Blood Pressure 113/81 138/86 O2 Sat by Pulse 98 98 Oximetry Medical Decision Making - Lab Data Lab Results 03/07/21 Range/Units 20:55 Coronavirus (PCR) Not Detected (Not Detectd) Disposition Clinical Impression: Radicular low back pain Disposition: HOME SELF-CARE Condition: Good Instructions (If sedation given, give patient instructions): Lumbar Radiculopathy (ED) Prescriptions: predniSONE [Deltasone] 20 mg PO BID #8 tab Methocarbamol [Robaxin-750] 750 mg PO TID PRN #30 tablet PRN Reason: pain Is patient prescribed a controlled substance at d/c from ED?: No Referrals: Brian Bonner MD [Primary Care Provider] - 1-2 days
[2021-03-07 22:46] VITALS: BP 138/86; PULSE 110; RESP 18
== END 2021-03-07 23:05 | disposition home or self-care (01) ==
LOC: EC 19:59
DX: M54.50 Low back pain, unspecified (principal); I10 Essential (primary) hypertension; E11.9 Type 2 diabetes mellitus without complications; F17.200 Nicotine dependence, unspecified, uncomplicated; Z20.822 Contact with and (suspected) exposure to COVID-19; Z91.018 Allergy to other foods; Z91.012 Allergy to eggs; Z91.011 Allergy to milk products
CPT/HCPCS: 99283; 96372; 87635; J2270; J2360; J7512

== ENCOUNTER 2021-06-30 15:48 | Emergency (ER) | payer OTHER ==
[2021-06-30] MEDS ORDERED: SODIUM CHLORIDE 0.9% 500 ML 500 ML IV STA (22:49)
--- NOTE | 2021-06-30 23:00 | ED ---
General Adult HPI - General Chief complaint: Anxiety Stated complaint: Anxiety, Rapid heart rate Time Seen by Provider: 06/30/21 22:28 Source: patient Mode of arrival: ambulatory Limitations: no limitations - History of Present Illness Initial comments: This patient is a 40-year-old woman who presents with complaints of feeling anxious and having spasms to the neck and upper back. She states that it seems to correlate with taking ropinirole which she was prescribed by her physician. She states that she has been taking about 2 weeks and that's how far the symptoms go back now. Onset/Timin -: week(s) Location: neck, back Radiation: non-radiation Quality: other (Spasms) Consistency: intermittent Improves with: none Worsens with: none Associated Symptoms: shortness of breath Treatments Prior to Arrival: none - Related Data Home Medications Medication Instructions Recorded Confirmed Glimepiride [Amaryl] 4 mg PO BID 07/30/13 06/30/21 Albuterol Nebulized [Ventolin 2.5 mg INHALATION RT-Q6H PRN 09/11/14 06/30/21 Nebulized] Albuterol Inhaler [Ventolin Hfa 2 puff INHALATION RT-QID PRN 06/30/21 06/30/21 Inhaler] Atorvastatin Calcium [Lipitor] 80 mg PO DAILY 06/30/21 06/30/21 Cetirizine HCl 10 mg PO HS 06/30/21 06/30/21 Cholecalciferol [Vitamin D3 (25 100 mcg PO DAILY 06/30/21 06/30/21 Mcg = 1000 Iu)] EPINEPHrine (Auto Inject) [Epipen] 0.3 mg IM ONCE PRN 06/30/21 06/30/21 Fluticasone/Salmeterol [Advair Hfa 1 puff INHALATION RT-BID 06/30/21 06/30/21 45-21 Mcg Inhaler] Levothyroxine Sodium [Synthroid] 75 mcg PO DAILY 06/30/21 06/30/21 Lisinopril [Prinivil] 10 mg PO DAILY 06/30/21 06/30/21 Magnesium Oxide [Tolentino] 500 mg PO HS 06/30/21 06/30/21 Multivitamins, Thera [Multivitamin 1 tab PO DAILY 06/30/21 06/30/21 (formulary)] [place]-3 Fatty Acids [[place]-3] 1,000 mg PO DAILY 06/30/21 06/30/21 Pantoprazole [Protonix] 40 mg PO DAILY 06/30/21 06/30/21 Previous Rx's Medication Instructions Recorded Hydrochlorothiazide 12.5 mg PO DAILY #30 capsule 05/02/19 [hydroCHLOROthiazide] gemfibroziL [Lopid] 600 mg PO AC-BID #60 tablet 05/02/19 metFORMIN HCL [Glucophage] 1,000 mg PO BID #60 tab 05/02/19 Allergies Allergy/AdvReac Type Severity Reaction Status Date / Time cinnamon Allergy Anaphylaxis Verified 06/30/21 16:44 egg Allergy Unknown Verified 06/30/21 16:44 milk AdvReac Cough Verified 06/30/21 16:44 ropinirole [From Requip] AdvReac Shaking Verified 06/30/21 23:51 Review of Systems ROS Statement: Those systems with pertinent positive or pertinent negative responses have been documented in the HPI. ROS Other: All systems not noted in ROS Statement are negative. Constitutional: Denies: fever, chills, weakness Eyes: Denies: vision change Respiratory: Reports: dyspnea. Denies: cough, wheezes Cardiovascular: Denies: chest pain, palpitations, dyspnea on exertion, orthopnea, edema, syncope Gastrointestinal: Denies: abdominal pain, vomiting, diarrhea Genitourinary: Denies: dysuria, hematuria Musculoskeletal: Reports: as per HPI, back pain (Spasms) Skin: Denies: rash Neurological: Denies: headache, weakness, numbness, paresthesias Psychiatric: Reports: anxiety. Denies: depression, homicidal thoughts, suicidal thoughts Past Medical History Past Medical History: Diabetes Mellitus, Hyperlipidemia, Hypertension Additional Past Medical History / Comment(s): BRONCHITIS, SINUSITIS History of Any Multi-Drug Resistant Organisms: None Reported Additional Past Surgical History / Comment(s): nose surgery-POLYPS REMOVED Past Anesthesia/Blood Transfusion Reactions: No Reported Reaction Past Psychological History: ADD/ADHD, Anxiety, Depression Smoking Status: Current every day smoker Past Alcohol Use History: None Reported Past Drug Use History: None Reported - Past Family History Father History Unknown: Yes Mother Family Medical History: Congestive Heart Failure (CHF), Diabetes Mellitus, Hyperlipidemia, Hypertension General Exam Limitations: no limitations General appearance: alert, in no apparent distress Head exam: Present: atraumatic, normocephalic Eye exam: Present: normal appearance. Absent: scleral icterus, conjunctival injection Neck exam: Present: normal inspection, full ROM Respiratory exam: Present: normal lung sounds bilaterally. Absent: respiratory distress, wheezes, rales, rhonchi, stridor Cardiovascular Exam: Present: regular rate, normal rhythm, normal heart sounds. Absent: systolic murmur, diastolic murmur, rubs, gallop GI/Abdominal exam: Present: soft. Absent: distended, tenderness, guarding, rebound, rigid, mass Extremities exam: Present: normal inspection, normal capillary refill. Absent: pedal edema, calf tenderness Back exam: Present: normal inspection, paraspinal tenderness. Absent: CVA tenderness (R), CVA tenderness (L) Neurological exam: Present: alert Psychiatric exam: Present: anxious. Absent: depressed, suicidal ideation Skin exam: Present: warm, dry, intact, normal color. Absent: rash Course Vital Signs 06/30/21 16:44 Temperature 97.4 F L Pulse Rate 116 H Respiratory 18 Rate Blood Pressure 148/81 O2 Sat by Pulse 98 Oximetry Medical Decision Making - Lab Data Result diagrams: 06/30/21 23:35 06/30/21 23:35 Lab Results 06/30/21 06/30/21 Range/Units 23:35 23:35 WBC 6.4 (3.8-10.6) k/uL RBC 3.48 L (3.80-5.40) m/uL Hgb 11.2 L (11.4-16.0) gm/dL Hct 32.0 L (34.0-46.0) % MCV 92.1 (80.0-100.0) fL MCH 32.0 (25.0-35.0) pg MCHC 34.8 (31.0-37.0) g/dL RDW 14.4 (11.5-15.5) % Plt Count 279 (150-450) k/uL MPV 8.4 Neutrophils % 47 % Lymphocytes % 43 % Monocytes % 4 % Eosinophils % 4 % Basophils % 0 % Neutrophils # 3.0 (1.3-7.7) k/uL Lymphocytes # 2.7 (1.0-4.8) k/uL Monocytes # 0.3 (0-1.0) k/uL Eosinophils # 0.2 (0-0.7) k/uL Basophils # 0.0 (0-0.2) k/uL Sodium 138 (137-145) mmol/L Potassium 4.2 (3.5-5.1) mmol/L Chloride 105 (98-107) mmol/L Carbon Dioxide 22 (22-30) mmol/L Anion Gap 11 mmol/L BUN 28 H (7-17) mg/dL Creatinine 0.95 (0.52-1.04) mg/dL Est GFR (CKD-EPI)AfAm 87 (>60 ml/min/1.73 sqM) Est GFR (CKD-EPI)NonAf 75 (>60 ml/min/1.73 sqM) Glucose 76 (74-99) mg/dL Calcium 9.8 (8.4-10.2) mg/dL Total Bilirubin 0.4 (0.2-1.3) mg/dL AST 44 H (14-36) U/L ALT 50 H (4-34) U/L Alkaline Phosphatase 43 (38-126) U/L Total Protein 7.7 (6.3-8.2) g/dL Albumin 4.6 (3.5-5.0) g/dL Disposition Clinical Impression: Acute anxiety, Dehydration, Side effect of drug Disposition: HOME SELF-CARE Condition: Good Instructions (If sedation given, give patient instructions): Generalized Anxiety Disorder (ED) Is patient prescribed a controlled substance at d/c from ED?: No Referrals: Brian Bonner MD [Primary Care Provider] - 1-2 days
[2021-07-01 00:03] LABS: Albumin 4.6 g/dL (3.5-5.0); Basophils % (A) 0 %; Calcium 9.8 mg/dL (8.4-10.2); Eosinophils # (A) 0.2 k/uL (0-0.7); Eosinophils % (A) 4 %; HGB 11.2 gm/dL (11.4-16.0); Lymphocytes # (A) 2.7 k/uL (1.0-4.8); Lymphocytes % (A) 43 %; MCHC 34.8 g/dL (31.0-37.0); MCV 92.1 fL (80.0-100.0); Mean Platelet Volume 8.4; Monocytes # (A) 0.3 k/uL (0-1.0); Monocytes % (A) 4 %; Neutrophils % (A) 47 %; Platelet Count 279 k/uL (150-450); Potassium 4.2 mmol/L (3.5-5.1); RBC 3.48 m/uL (3.80-5.40); RDW 14.4 % (11.5-15.5); Total Bilirubin 0.4 mg/dL (0.2-1.3); Total Protein 7.7 g/dL (6.3-8.2); WBC 6.4 k/uL (3.8-10.6)
[2021-07-01] MEDS ORDERED: SODIUM CHLORIDE 0.9% 1,000 ML IV ONE (00:39)
[2021-07-01 01:31] VITALS: BP 140/83; PULSE 98; RESP 26; TEMP 97.9
== END 2021-07-01 01:32 | disposition home or self-care (01) ==
LOC: EC 15:48
DX: F41.9 Anxiety disorder, unspecified (principal); E86.0 Dehydration; F17.200 Nicotine dependence, unspecified, uncomplicated; I10 Essential (primary) hypertension; E11.9 Type 2 diabetes mellitus without complications; Z91.018 Allergy to other foods; Z91.012 Allergy to eggs; Z91.011 Allergy to milk products; Z88.8 Allergy status to other drugs, medicaments and biological substances
CPT/HCPCS: 36415; 80053; 85025; 93005; 99284

== ENCOUNTER 2021-08-31 17:37 | Emergency (ER) | payer OTHER ==
[2021-08-31 18:03] VITALS: RESP 20; TEMP 98.5
--- NOTE | 2021-08-31 20:01 | ED ---
General Adult HPI - General Chief complaint: Upper Respiratory Infection Stated complaint: Light headed, dizziness, vomiting Time Seen by Provider: 08/31/21 20:01 Source: patient Mode of arrival: ambulatory Limitations: no limitations - History of Present Illness Initial comments: Patient presents to the ED stating that she has had generalized abdominal pain, nausea, a cough, body aches and lightheadedness since yesterday. She also states that she has had vomiting today. Patient states that her blood glucose levels have been elevated over the past few days, and she states that she recently started taking Jardiance for management of her diabetes. Patient states that her abdominal pain is minimal at this time. Patient denies trauma or injury, fever or chills, headache, focal numbness/weakness/neuro deficit, chest pain or pressure, dyspnea, hemoptysis, palpitations, syncope, diarrhea or constipation, bloody or melanotic stool, hematemesis, dysuria/hematuria/urinary frequency/urinary symptoms, leg or calf swelling or pain, or any other symptoms or complaints. Patient states that she is not vaccinated against Covid. - Related Data Home Medications Medication Instructions Recorded Confirmed Glimepiride [Amaryl] 4 mg PO BID 07/30/13 08/31/21 Albuterol Nebulized [Ventolin 2.5 mg INHALATION RT-Q6H PRN 09/11/14 08/31/21 Nebulized] Cetirizine HCl 10 mg PO DAILY 06/30/21 08/31/21 EPINEPHrine (Auto Inject) [Epipen] 0.3 mg IM ONCE PRN 06/30/21 08/31/21 Fluticasone Propion/Salmeterol 1 puff INHALATION RT-BID 06/30/21 08/31/21 [Advair Hfa 45-21 Mcg Inhaler] Levothyroxine Sodium [Synthroid] 75 mcg PO DAILY 06/30/21 08/31/21 Magnesium Oxide [Tolentino] 500 mg PO DAILY 06/30/21 08/31/21 Pantoprazole [Protonix] 40 mg PO DAILY 06/30/21 08/31/21 lisinopriL [Prinivil] 10 mg PO DAILY 06/30/21 08/31/21 Albuterol Sulfate [Proair Hfa] 2 puff INHALATION RT-Q6H PRN 08/31/21 08/31/21 Clobetasol Propionate [Temovate 1 applic TOPICAL DIRECTED 08/31/21 08/31/21 0.05% Oint] Empagliflozin [Jardiance] 10 mg PO DAILY 08/31/21 08/31/21 Losartan Potassium [Cozaar] 25 mg PO DIRECTED 08/31/21 08/31/21 Venlafaxine HCl ER [Effexor XR] 75 mg PO DAILY 08/31/21 08/31/21 Previous Rx's Medication Instructions Recorded gemfibroziL [Lopid] 600 mg PO AC-BID #60 tablet 05/02/19 hydroCHLOROthiazide 12.5 mg PO DAILY #30 capsule 05/02/19 metFORMIN HCL [Glucophage] 1,000 mg PO BID #60 tab 05/02/19 Allergies Allergy/AdvReac Type Severity Reaction Status Date / Time cinnamon Allergy Anaphylaxis Verified 08/31/21 20:42 egg Allergy Unknown Verified 08/31/21 20:42 milk AdvReac Cough Verified 08/31/21 20:42 ropinirole [From Requip] AdvReac Shaking Verified 08/31/21 20:42 Review of Systems ROS Statement: Those systems with pertinent positive or pertinent negative responses have been documented in the HPI. ROS Other: All systems not noted in ROS Statement are negative. Past Medical History Past Medical History: Diabetes Mellitus, Hyperlipidemia, Hypertension Additional Past Medical History / Comment(s): BRONCHITIS, SINUSITIS History of Any Multi-Drug Resistant Organisms: None Reported Additional Past Surgical History / Comment(s): nose surgery-POLYPS REMOVED Past Anesthesia/Blood Transfusion Reactions: No Reported Reaction Past Psychological History: ADD/ADHD, Anxiety, Depression Smoking Status: Current every day smoker Past Alcohol Use History: None Reported Past Drug Use History: None Reported - Past Family History Father History Unknown: Yes Mother Family Medical History: Congestive Heart Failure (CHF), Diabetes Mellitus, Hyperlipidemia, Hypertension General Exam Limitations: no limitations General appearance: alert, in no apparent distress Head exam: Present: atraumatic, normocephalic Eye exam: Present: normal appearance, EOMI ENT exam: Present: normal oropharynx, mucous membranes moist Neck exam: Present: other (Trachea is in midline) Respiratory exam: Present: normal lung sounds bilaterally. Absent: respiratory distress, wheezes, rales, rhonchi, stridor Cardiovascular Exam: Present: regular rate, normal rhythm, normal heart sounds, other (Normal radial pulses bilaterally) GI/Abdominal exam: Present: soft, normal bowel sounds. Absent: distended, tenderness, guarding Extremities exam: Absent: tenderness, pedal edema, calf tenderness Neurological exam: Present: alert, oriented X3. Absent: motor sensory deficit Psychiatric exam: Present: normal affect, normal mood Skin exam: Present: warm, dry, intact, normal color Course Vital Signs 08/31/21 08/31/21 18:01 22:55 Temperature 98.5 F Pulse Rate 105 H 96 Respiratory 20 Rate Blood Pressure 165/105 164/103 O2 Sat by Pulse 94 L 95 Oximetry - Reevaluation(s) Reevaluation #1: 09/01/21 00:12 Patient denies development of any new symptoms while in the ED. Patient's ab domen remains soft and completely nontender on examination. Patient is aware of her test results, and she feels comfortable being discharged home at this time. Patient was counseled about her symptoms and hyperglycemia, and she was clearly explained return and follow-up instructions. Patient was instructed to check her blood glucose levels regularly and to follow up closely with her primary car e provider. Patient feels comfortable with this plan EKG Findings - EKG Comments: EKG Findings:: Normal sinus rhythm, ventricular rate of 99 bpm, normal MS and QRS intervals, normal QT interval, normal axis, no ST or T-wave abnormality Medical Decision Making - Medical Decision Making Patient has a soft and nontender abdominal exam. Patient is afebrile and without leukocytosis. Patient is hyperglycemic, but not acidotic or ketotic. Patient has been treated with IV fluids and subQ regular insulin in the ED. Patient's Covid test is negative. Patient's labs are otherwise fairly unremarkable. I do not suspect an emergent medical or surgical condition at this time. Will discharge patient home at this time. - Lab Data Result diagrams: 08/31/21 20:30 08/31/21 20:38 Lab Results 08/31/21 08/31/21 08/31/21 Range/Units 18:05 20:30 20:38 WBC 5.4 (3.8-10.6) k/uL RBC 3.72 L (3.80-5.40) m/uL Hgb 11.6 (11.4-16.0) gm/dL Hct 32.8 L (34.0-46.0) % MCV 88.1 (80.0-100.0) fL MCH 31.2 (25.0-35.0) pg MCHC 35.4 (31.0-37.0) g/dL RDW 13.6 (11.5-15.5) % Plt Count 271 (150-450) k/uL MPV 8.8 Neutrophils % 50 % Lymphocytes % 37 % Monocytes % 4 % Eosinophils % 4 % Basophils % 1 % Neutrophils # 2.7 (1.3-7.7) k/uL Lymphocytes # 2.0 (1.0-4.8) k/uL Monocytes # 0.2 (0-1.0) k/uL Eosinophils # 0.2 (0-0.7) k/uL Basophils # 0.1 (0-0.2) k/uL VBG pH (7.31-7.41) VBG pCO2 (37-51) mmHg VBG HCO3 (24-28) mmol/L Sodium 131 L (137-145) mmol/L Potassium 4.3 (3.5-5.1) mmol/L Chloride 94 L (98-107) mmol/L Carbon Dioxide 27 (22-30) mmol/L Anion Gap 10 mmol/L BUN 22 H (7-17) mg/dL Creatinine 0.88 (0.52-1.04) mg/dL Est GFR (CKD-EPI)AfAm >90 (>60 ml/min/1.73 sqM) Est GFR (CKD-EPI)NonAf 82 (>60 ml/min/1.73 sqM) Glucose 359 H (74-99) mg/dL Calcium 9.6 (8.4-10.2) mg/dL Magnesium 1.5 L (1.6-2.3) mg/dL Total Bilirubin 0.4 (0.2-1.3) mg/dL AST 34 (14-36) U/L ALT 34 (4-34) U/L Alkaline Phosphatase 75 (38-126) U/L Total Protein 8.1 (6.3-8.2) g/dL Albumin 4.6 (3.5-5.0) g/dL Lipase 102 (23-300) U/L HCG, Qual Not Detected Urine Color Urine Appearance (Clear) Urine pH (5.0-8.0) Ur Specific [place] (1.001-1.035) Urine Protein (Negative) Urine Glucose (UA) (Negative) Urine Ketones (Negative) Urine Blood (Negative) Urine Nitrite (Negative) Urine Bilirubin (Negative) Urine Urobilinogen (<2.0) mg/dL Ur Leukocyte Esterase (Negative) Urine RBC (0-5) /hpf Ur Squamous Epith Cells (0-4) /hpf Urine Bacteria (None) /hpf Acetone, Qual Negative (Negative) Coronavirus (PCR) Not Detected (Not Detectd) 08/31/21 08/31/21 Range/Units 20:38 23:16 WBC (3.8-10.6) k/uL RBC (3.80-5.40) m/uL Hgb (11.4-16.0) gm/dL Hct (34.0-46.0) % MCV (80.0-100.0) fL MCH (25.0-35.0) pg MCHC (31.0-37.0) g/dL RDW (11.5-15.5) % Plt Count (150-450) k/uL MPV Neutrophils % % Lymphocytes % % Monocytes % % Eosinophils % % Basophils % % Neutrophils # (1.3-7.7) k/uL Lymphocytes # (1.0-4.8) k/uL Monocytes # (0-1.0) k/uL Eosinophils # (0-0.7) k/uL Basophils # (0-0.2) k/uL VBG pH 7.36 (7.31-7.41) VBG pCO2 53 H (37-51) mmHg VBG HCO3 29 H (24-28) mmol/L Sodium (137-145) mmol/L Potassium (3.5-5.1) mmol/L Chloride (98-107) mmol/L Carbon Dioxide (22-30) mmol/L Anion Gap mmol/L BUN (7-17) mg/dL Creatinine (0.52-1.04) mg/dL Est GFR (CKD-EPI)AfAm (>60 ml/min/1.73 sqM) Est GFR (CKD-EPI)NonAf (>60 ml/min/1.73 sqM) Glucose (74-99) mg/dL Calcium (8.4-10.2) mg/dL Magnesium (1.6-2.3) mg/dL Total Bilirubin (0.2-1.3) mg/dL AST (14-36) U/L ALT (4-34) U/L Alkaline Phosphatase (38-126) U/L Total Protein (6.3-8.2) g/dL Albumin (3.5-5.0) g/dL Lipase (23-300) U/L HCG, Qual Urine Color Light Yellow Urine Appearance Clear (Clear) Urine pH 6.0 (5.0-8.0) Ur Specific [place] 1.026 (1.001-1.035) Urine Protein 2+ H (Negative) Urine Glucose (UA) 4+ H (Negative) Urine Ketones Negative (Negative) Urine Blood Trace H (Negative) Urine Nitrite Negative (Negative) Urine Bilirubin Negative (Negative) Urine Urobilinogen <2.0 (<2.0) mg/dL Ur Leukocyte Esterase Negative (Negative) Urine RBC <1 (0-5) /hpf Ur Squamous Epith Cells <1 (0-4) /hpf Urine Bacteria Rare H (None) /hpf Acetone, Qual (Negative) Coronavirus (PCR) (Not Detectd) - Radiology Data Chest x-ray: Normal chest. No change. Disposition Clinical Impression: Hyperglycemia, Nausea and vomiting, Lightheadedness, Abdominal pain Disposition: HOME SELF-CARE Condition: Stable Instructions (If sedation given, give patient instructions): Acute Nausea and Vomiting (ED), Abdominal Pain (ED), Lightheadedness (ED), Diabetic Hyperglycemia (ED) Additional Instructions: Return to the ER immediately should you develop persistent vomiting, new or wo rsening pain, fainting, shortness of breath, a fever, or new or worsening symptoms. Follow up closely with your primary care provider. Is patient prescribed a controlled substance at d/c from ED?: No Referrals: Brian Bonner MD [Primary Care Provider] - 1-2 days Time of Disposition: 00:14
[2021-08-31] MEDS ORDERED: SODIUM CHLORIDE 0.9% 1,000 ML IV ONE (20:09)
[2021-08-31] MEDS ORDERED: ONDANSETRON 4 MG/2 ML VIAL IVP STA (20:10)
[2021-08-31 20:57] LABS: Basophils # (A) 0.1 k/uL (0-0.2); Basophils % (A) 1 %; Eosinophils # (A) 0.2 k/uL (0-0.7); Eosinophils % (A) 4 %; HCT 32.8 % (34.0-46.0); HGB 11.6 gm/dL (11.4-16.0); Lymphocytes % (A) 37 %; MCH 31.2 pg (25.0-35.0); MCHC 35.4 g/dL (31.0-37.0); MCV 88.1 fL (80.0-100.0); Mean Platelet Volume 8.8; Monocytes # (A) 0.2 k/uL (0-1.0); Monocytes % (A) 4 %; Neutrophils # (A) 2.7 k/uL (1.3-7.7); Neutrophils % (A) 50 %; Platelet Count 271 k/uL (150-450); RBC 3.72 m/uL (3.80-5.40); RDW 13.6 % (11.5-15.5); WBC 5.4 k/uL (3.8-10.6)
[2021-08-31 21:08] LABS: ALT 34 U/L (4-34); AST 34 U/L (14-36); African American GFR (CKD) >90 (>60 ml/min/1.73 sqM); Albumin 4.6 g/dL (3.5-5.0); Alkaline Phosphatase 75 U/L (38-126); Anion Gap 10 mmol/L; Blood Urea Nitrogen 22 mg/dL (7-17); Calcium 9.6 mg/dL (8.4-10.2); Carbon Dioxide 27 mmol/L (22-30); Chloride 94 mmol/L (98-107); Glucose 359 mg/dL (74-99); HCG,Qualitative Serum Not Detected; Lipase 102 U/L (23-300); Magnesium 1.5 mg/dL (1.6-2.3); Non-African American GFR(CKD) 82 (>60 ml/min/1.73 sqM); Potassium 4.3 mmol/L (3.5-5.1); Sodium 131 mmol/L (137-145); Total Bilirubin 0.4 mg/dL (0.2-1.3); Total Protein 8.1 g/dL (6.3-8.2)
[2021-08-31] MEDS ORDERED: INSULIN REGULAR 100 UNIT/ML VIAL (IM/SQ) SQ STA (21:11)
[2021-08-31 21:16] LABS: VBG PH 7.36 (7.31-7.41)
--- NOTE | 2021-08-31 21:58 | XR ---
EXAMINATION TYPE: XR chest 2V DATE OF EXAM: 08/31/2021 COMPARISON: 03/30/2017 HISTORY: Chest pain TECHNIQUE: FINDINGS: Heart and mediastinum are normal. Lungs are clear. Diaphragm is normal. Bony thorax appears normal. IMPRESSION: Normal chest. No change.
[2021-08-31 22:56] VITALS: PULSE 96
[2021-08-31 23:59] LABS: Appearance,Urine Clear (Clear); Bacteria,Urine Rare /hpf; Bilirubin,Urine Negative (Negative); Blood,Urine Trace (Negative); Color,Urine Light Yellow; Glucose,Urine (UA) 4+ (Negative); Ketones,Urine Negative (Negative); Leukocyte Esterase,Urine Negative (Negative); Nitrite,Urine Negative (Negative); Protein,Urine 2+ (Negative); RBC,Urine <1 /hpf (0-5); Specific Gravity,Urine 1.026 (1.001-1.035); Squamous Epithelial Cell,Urine <1 /hpf (0-4); Urobilinogen,Urine <2.0 mg/dL (<2.0)
[2021-09-01 00:33] VITALS: BP 151/99
== END 2021-09-01 00:32 | disposition home or self-care (01) ==
LOC: EC 17:37
DX: R10.84 Generalized abdominal pain (principal); R73.9 Hyperglycemia, unspecified; E78.5 Hyperlipidemia, unspecified; I10 Essential (primary) hypertension; F17.200 Nicotine dependence, unspecified, uncomplicated; R11.2 Nausea with vomiting, unspecified; R51.9 Headache, unspecified; Z20.822 Contact with and (suspected) exposure to COVID-19; Z91.048 Other nonmedicinal substance allergy status; Z91.012 Allergy to eggs; Z91.011 Allergy to milk products; Z88.8 Allergy status to other drugs, medicaments and biological substances
CPT/HCPCS: 36415; 93005; 80053; 82803; 82009; 83690; 83735; 85025; 81001; 84703; 87635; 71046; 99284; 96374; 96361; J2405

== ENCOUNTER 2021-10-13 18:11 | Emergency (ER) | payer OTHER ==
[2021-10-13 18:22] LABS: Glucose,Whole Blood 290 mg/dL (70-110)
[2021-10-13] MEDS ORDERED: SODIUM CHLORIDE 0.9% 1,000 ML IV ONE (22:14)
--- NOTE | 2021-10-13 22:24 | ED ---
General Adult HPI - General Chief complaint: Dizziness Stated complaint: weakness Time Seen by Provider: 10/13/21 22:10 Source: patient, RN notes reviewed, old records reviewed Mode of arrival: ambulatory - History of Present Illness Initial comments: 40-year-old female presenting for evaluation of elevated blood sugar as well as nausea. Patient states she has felt this way throughout the day today. No chest pain or abdominal pain. She feels somewhat lightheaded. No dysuria or hematuria. No fever. - Related Data Home Medications Medication Instructions Recorded Confirmed Glimepiride [Amaryl] 4 mg PO BID 07/30/13 10/13/21 Albuterol Nebulized [Ventolin 2.5 mg INHALATION RT-Q6H PRN 09/11/14 10/13/21 Nebulized] Cetirizine HCl 10 mg PO DAILY 06/30/21 10/13/21 EPINEPHrine (Auto Inject) [Epipen] 0.3 mg IM ONCE PRN 06/30/21 10/13/21 Fluticasone Propion/Salmeterol 1 puff INHALATION RT-BID 06/30/21 10/13/21 [Advair Hfa 45-21 Mcg Inhaler] Levothyroxine Sodium [Synthroid] 75 mcg PO DAILY 06/30/21 10/13/21 Magnesium Oxide [Tolentino] 500 mg PO DAILY 06/30/21 10/13/21 Pantoprazole [Protonix] 40 mg PO DAILY 06/30/21 10/13/21 lisinopriL [Prinivil] 10 mg PO DAILY 06/30/21 10/13/21 Albuterol Sulfate [Proair Hfa] 2 puff INHALATION RT-Q6H PRN 08/31/21 10/13/21 Losartan Potassium [Cozaar] 25 mg PO DIRECTED 08/31/21 10/13/21 Venlafaxine HCl ER [Effexor XR] 75 mg PO DAILY 08/31/21 10/13/21 Previous Rx's Medication Instructions Recorded gemfibroziL [Lopid] 600 mg PO AC-BID #60 tablet 05/02/19 hydroCHLOROthiazide 12.5 mg PO DAILY #30 capsule 05/02/19 metFORMIN HCL [Glucophage] 1,000 mg PO BID #60 tab 05/02/19 Allergies Allergy/AdvReac Type Severity Reaction Status Date / Time cinnamon Allergy Anaphylaxis Verified 10/13/21 22:43 egg Allergy Unknown Verified 10/13/21 22:43 milk AdvReac Cough Verified 10/13/21 22:43 ropinirole [From Requip] AdvReac Shaking Verified 10/13/21 22:43 Review of Systems ROS Statement: Those systems with pertinent positive or pertinent negative responses have been documented in the HPI. ROS Other: All systems not noted in ROS Statement are negative. Past Medical History Past Medical History: Diabetes Mellitus, Hyperlipidemia, Hypertension Additional Past Medical History / Comment(s): BRONCHITIS, SINUSITIS History of Any Multi-Drug Resistant Organisms: None Reported Additional Past Surgical History / Comment(s): nose surgery-POLYPS REMOVED Past Anesthesia/Blood Transfusion Reactions: No Reported Reaction Past Psychological History: ADD/ADHD, Anxiety, Depression Smoking Status: Current every day smoker Past Alcohol Use History: None Reported Past Drug Use History: None Reported - Past Family History Father History Unknown: Yes Mother Family Medical History: Congestive Heart Failure (CHF), Diabetes Mellitus, Hyperlipidemia, Hypertension General Exam General appearance: alert, in no apparent distress Head exam: Present: atraumatic, normocephalic Eye exam: Present: normal appearance, PERRL ENT exam: Present: mucous membranes dry Neck exam: Present: normal inspection. Absent: tenderness, meningismus Respiratory exam: Present: normal lung sounds bilaterally. Absent: respiratory distress, wheezes Cardiovascular Exam: Present: regular rate, normal rhythm GI/Abdominal exam: Present: soft. Absent: distended, tenderness Extremities exam: Present: normal inspection, normal capillary refill. Absent: pedal edema, calf tenderness Neurological exam: Present: alert, oriented X3, CN II-XII intact. Absent: motor sensory deficit Psychiatric exam: Present: normal affect, normal mood Skin exam: Present: warm, dry, intact. Absent: cyanosis, diaphoretic Course Vital Signs 10/13/21 18:15 Temperature 98.3 F Pulse Rate 106 H Respiratory 18 Rate Blood Pressure 153/81 O2 Sat by Pulse 97 Oximetry EKG Findings - EKG Comments: EKG Findings:: EKG: Sinus rhythm rate 99, WA interval 136, QRS duration 94, QTC [address] segment elevation. Medical Decision Making - Medical Decision Making 40-year-old female presenting for evaluation of hyperglycemia and lightheadedness. Patient has stable vitals. She is in sinus rhythm. Laboratory testing performed. She has a hemoglobin 9.6 which is slightly reduced from prior. Patient has elevated blood glucose at 297, no signs of acidosis, CO2 of 23. She has magnesium of 1.1 which is replaced. She's given IV fluid. On reevaluation she is feeling better. I would did offer admission for hydration, glucose monitoring, and replacement of magnesium. Patient declines. She states she will take oral magnesium at home and monitor blood g lucose closely. Return parameters discussed. She will follow with her primary care physician. - Lab Data Result diagrams: 10/13/21 22:38 10/13/21 22:38 Lab Results 10/13/21 10/13/21 10/13/21 Range/Units 18:21 22:38 22:38 WBC 4.6 (3.8-10.6) k/uL RBC 3.09 L (3.80-5.40) m/uL Hgb 9.6 L D (11.4-16.0) gm/dL Hct 28.1 L (34.0-46.0) % MCV 91.2 (80.0-100.0) fL MCH 31.1 (25.0-35.0) pg MCHC 34.1 (31.0-37.0) g/dL RDW 14.9 (11.5-15.5) % Plt Count 264 (150-450) k/uL MPV 8.8 Neutrophils % 54 % Lymphocytes % 33 % Monocytes % 5 % Eosinophils % 4 % Basophils % 1 % Neutrophils # 2.5 (1.3-7.7) k/uL Lymphocytes # 1.5 (1.0-4.8) k/uL Monocytes # 0.2 (0-1.0) k/uL Eosinophils # 0.2 (0-0.7) k/uL Basophils # 0.0 (0-0.2) k/uL PT 10.5 (9.0-12.0) sec INR 1.0 (<1.2) APTT 22.5 (22.0-30.0) sec Sodium (137-145) mmol/L Potassium (3.5-5.1) mmol/L Chloride (98-107) mmol/L Carbon Dioxide (22-30) mmol/L Anion Gap mmol/L BUN (7-17) mg/dL Creatinine (0.52-1.04) mg/dL Est GFR (CKD-EPI)AfAm (>60 ml/min/1.73 sqM) Est GFR (CKD-EPI)NonAf (>60 ml/min/1.73 sqM) Glucose (74-99) mg/dL POC Glucose (mg/dL) 290 H (70-110) mg/dL POC Glu Scale Mechanic ID Sangeeta Bee Calcium (8.4-10.2) mg/dL Magnesium (1.6-2.3) mg/dL Total Bilirubin (0.2-1.3) mg/dL AST (14-36) U/L ALT (4-34) U/L Alkaline Phosphatase (38-126) U/L Troponin I (0.000-0.034) ng/mL Total Protein (6.3-8.2) g/dL Albumin (3.5-5.0) g/dL 10/13/21 10/13/21 Range/Units 22:38 22:38 WBC (3.8-10.6) k/uL RBC (3.80-5.40) m/uL Hgb (11.4-16.0) gm/dL Hct (34.0-46.0) % MCV (80.0-100.0) fL MCH (25.0-35.0) pg MCHC (31.0-37.0) g/dL RDW (11.5-15.5) % Plt Count (150-450) k/uL MPV Neutrophils % % Lymphocytes % % Monocytes % % Eosinophils % % Basophils % % Neutrophils # (1.3-7.7) k/uL Lymphocytes # (1.0-4.8) k/uL Monocytes # (0-1.0) k/uL Eosinophils # (0-0.7) k/uL Basophils # (0-0.2) k/uL PT (9.0-12.0) sec INR (<1.2) APTT (22.0-30.0) sec Sodium 135 L (137-145) mmol/L Potassium 4.3 (3.5-5.1) mmol/L Chloride 98 (98-107) mmol/L Carbon Dioxide 23 (22-30) mmol/L Anion Gap 14 mmol/L BUN 18 H (7-17) mg/dL Creatinine 0.67 (0.52-1.04) mg/dL Est GFR (CKD-EPI)AfAm >90 (>60 ml/min/1.73 sqM) Est GFR (CKD-EPI)NonAf >90 (>60 ml/min/1.73 sqM) Glucose 297 H (74-99) mg/dL POC Glucose (mg/dL) (70-110) mg/dL POC Glu Scale Mechanic ID Calcium 9.2 (8.4-10.2) mg/dL Magnesium 1.1 L (1.6-2.3) mg/dL Total Bilirubin 0.2 (0.2-1.3) mg/dL AST 31 (14-36) U/L ALT 24 (4-34) U/L Alkaline Phosphatase 47 (38-126) U/L Troponin I <0.012 (0.000-0.034) ng/mL Total Protein 6.8 (6.3-8.2) g/dL Albumin 4.1 (3.5-5.0) g/dL Disposition Clinical Impression: Dehydration, Hyperglycemia, Hypomagnesemia Disposition: HOME SELF-CARE Condition: Fair Instructions (If sedation given, give patient instructions): Hypomagnesemia (ED), Diabetic Hyperglycemia (ED) Is patient prescribed a controlled substance at d/c from ED?: No Referrals: Brian Bonner MD [Primary Care Provider] - 1-2 days Time of Disposition: 00:55
[2021-10-13 23:38] LABS: ALT 24 U/L (4-34); AST 31 U/L (14-36); African American GFR (CKD) >90 (>60 ml/min/1.73 sqM); Albumin 4.1 g/dL (3.5-5.0); Alkaline Phosphatase 47 U/L (38-126); Anion Gap 14 mmol/L; Blood Urea Nitrogen 18 mg/dL (7-17); Calcium 9.2 mg/dL (8.4-10.2); Carbon Dioxide 23 mmol/L (22-30); Chloride 98 mmol/L (98-107); Glucose 297 mg/dL (74-99); Magnesium 1.1 mg/dL (1.6-2.3); Non-African American GFR(CKD) >90 (>60 ml/min/1.73 sqM); Potassium 4.3 mmol/L (3.5-5.1); Sodium 135 mmol/L (137-145); Total Bilirubin 0.2 mg/dL (0.2-1.3); Total Protein 6.8 g/dL (6.3-8.2)
[2021-10-14 00:29] LABS: Basophils % (A) 1 %; Eosinophils # (A) 0.2 k/uL (0-0.7); Eosinophils % (A) 4 %; HCT 28.1 % (34.0-46.0); Lymphocytes # (A) 1.5 k/uL (1.0-4.8); Lymphocytes % (A) 33 %; MCH 31.1 pg (25.0-35.0); MCHC 34.1 g/dL (31.0-37.0); MCV 91.2 fL (80.0-100.0); Mean Platelet Volume 8.8; Monocytes # (A) 0.2 k/uL (0-1.0); Monocytes % (A) 5 %; Neutrophils # (A) 2.5 k/uL (1.3-7.7); Neutrophils % (A) 54 %; Platelet Count 264 k/uL (150-450); RBC 3.09 m/uL (3.80-5.40); RDW 14.9 % (11.5-15.5); WBC 4.6 k/uL (3.8-10.6)
[2021-10-14 00:31] LABS: HGB 9.6 gm/dL (11.4-16.0)
[2021-10-14 00:36] LABS: Partial Thromboplastin Time 22.5 sec (22.0-30.0); Prothrombin Time 10.5 sec (9.0-12.0)
[2021-10-14] MEDS: MAGNESIUM SULFATE-D5W PMX 1 GM in DEXTROSE/WATER 1 100ML.BAG IVPB SCH ×2 (00:37→01:38)
[2021-10-14 01:24] LABS: Appearance,Urine Clear (Clear); Bilirubin,Urine Negative (Negative); Blood,Urine Negative (Negative); Color,Urine Light Yellow; Glucose,Urine (UA) 4+ (Negative); Ketones,Urine Negative (Negative); Leukocyte Esterase,Urine Negative (Negative); Mucus,Urine Rare /hpf; Nitrite,Urine Negative (Negative); Protein,Urine 1+ (Negative); RBC,Urine 1 /hpf (0-5); Specific Gravity,Urine 1.015 (1.001-1.035); Squamous Epithelial Cell,Urine 3 /hpf (0-4); Urobilinogen,Urine <2.0 mg/dL (<2.0); WBC,Urine <1 /hpf (0-5)
[2021-10-14] MEDS ORDERED: ONDANSETRON 4 MG/2 ML VIAL IVP STA (01:44)
[2021-10-14 02:42] VITALS: BP 126/88; PULSE 98; RESP 19; TEMP 97.7
== END 2021-10-14 02:42 | disposition home or self-care (01) ==
LOC: EC 18:11
DX: E86.0 Dehydration (principal); E11.65 Type 2 diabetes mellitus with hyperglycemia; E83.42 Hypomagnesemia; E78.5 Hyperlipidemia, unspecified; I10 Essential (primary) hypertension; F41.9 Anxiety disorder, unspecified; F32.A Depression, unspecified; F17.200 Nicotine dependence, unspecified, uncomplicated; Z91.018 Allergy to other foods; Z91.012 Allergy to eggs; Z91.011 Allergy to milk products; Z79.899 Other long term (current) drug therapy; Z79.51 Long term (current) use of inhaled steroids
CPT/HCPCS: 36415; 93005; 80053; 83735; 84484; 85025; 85610; 85730; 81001; 99285; 96365; 96366; 96375; 96361; J2405; J3475

== ENCOUNTER 2021-10-31 15:20 | Emergency (ER) | payer OTHER ==
[2021-10-31 15:43] VITALS: TEMP 98
--- NOTE | 2021-10-31 19:42 | ED ---
General Adult HPI - General Chief complaint: Abdominal Pain Stated complaint: nausea, dizziness, leg spasms Time Seen by Provider: 10/31/21 19:34 Source: patient, RN notes reviewed Mode of arrival: ambulatory Limitations: no limitations - History of Present Illness Initial comments: This is a pleasant 40-year-old female who states for the past few days she has had some dry heaves and some nausea. Patient states she did have some suprapubic abdominal discomfort which is actually resolved. Patient denying any chest pain or shortness of breath. Patient also complaining of body aches, mainly in the legs. She states she occasionally is getting some cramping and muscle spasms involving her legs and calves. Patient states she previously had this when she had low magnesium. She states that she has been taking supplemental [id number] magnesium for the past 2 days. Denying any respiratory symptoms. No recent travel. No fever. No ill contacts. No headache, no fever or chills, no changes in vision or hearing, no sore throat or difficulty with speech, no neck pain, no chest pain or shortness of breath, no changes in urination or bowel movements, no numbness or tingling, no skin rashes or lesions. Past medical, surgical, social, and family history reviewed. - Related Data Home Medications Medication Instructions Recorded Confirmed Glimepiride [Amaryl] 4 mg PO BID 07/30/13 10/13/21 Albuterol Nebulized [Ventolin 2.5 mg INHALATION RT-Q6H PRN 09/11/14 10/13/21 Nebulized] Cetirizine HCl 10 mg PO DAILY 06/30/21 10/13/21 EPINEPHrine (Auto Inject) [Epipen] 0.3 mg IM ONCE PRN 06/30/21 10/13/21 Fluticasone Propion/Salmeterol 1 puff INHALATION RT-BID 06/30/21 10/13/21 [Advair Hfa 45-21 Mcg Inhaler] Levothyroxine Sodium [Synthroid] 75 mcg PO DAILY 06/30/21 10/13/21 Magnesium Oxide [Tolentino] 500 mg PO DAILY 06/30/21 10/13/21 Pantoprazole [Protonix] 40 mg PO DAILY 06/30/21 10/13/21 lisinopriL [Prinivil] 10 mg PO DAILY 06/30/21 10/13/21 Albuterol Sulfate [Proair Hfa] 2 puff INHALATION RT-Q6H PRN 08/31/21 10/13/21 Losartan Potassium [Cozaar] 25 mg PO DIRECTED 08/31/21 10/13/21 Venlafaxine HCl ER [Effexor XR] 75 mg PO DAILY 08/31/21 10/13/21 Previous Rx's Medication Instructions Recorded gemfibroziL [Lopid] 600 mg PO AC-BID #60 tablet 05/02/19 hydroCHLOROthiazide 12.5 mg PO DAILY #30 capsule 05/02/19 metFORMIN HCL [Glucophage] 1,000 mg PO BID #60 tab 05/02/19 Allergies Allergy/AdvReac Type Severity Reaction Status Date / Time cinnamon Allergy Anaphylaxis Verified 10/31/21 15:43 egg Allergy Unknown Verified 10/31/21 15:43 milk AdvReac Cough Verified 10/31/21 15:43 ropinirole [From Requip] AdvReac Shaking Verified 10/31/21 15:43 Review of Systems ROS Statement: Those systems with pertinent positive or pertinent negative responses have been documented in the HPI. ROS Other: All systems not noted in ROS Statement are negative. Past Medical History Past Medical History: Diabetes Mellitus, Hyperlipidemia, Hypertension Additional Past Medical History / Comment(s): BRONCHITIS, SINUSITIS History of Any Multi-Drug Resistant Organisms: None Reported Additional Past Surgical History / Comment(s): nose surgery-POLYPS REMOVED Past Anesthesia/Blood Transfusion Reactions: No Reported Reaction Past Psychological History: ADD/ADHD, Anxiety, Depression Smoking Status: Current every day smoker Past Alcohol Use History: None Reported Past Drug Use History: None Reported - Past Family History Father History Unknown: Yes Mother Family Medical History: Congestive Heart Failure (CHF), Diabetes Mellitus, Hyperlipidemia, Hypertension General Exam - General Exam Comments Initial Comments: 40-year-old female no acute distress. Does not appear to be ill or toxic. Vital signs reviewed. Capillary refill less than 2 seconds. Cranial nerves II through XII grossly intact Limitations: no limitations General appearance: alert, in no apparent distress Head exam: Present: atraumatic, normocephalic, normal inspection Eye exam: Present: normal appearance, PERRL, EOMI. Absent: scleral icterus, conjunctival injection, periorbital swelling ENT exam: Present: normal exam, mucous membranes moist Neck exam: Present: normal inspection, full ROM. Absent: tenderness, meningismus, lymphadenopathy Respiratory exam: Present: normal lung sounds bilaterally. Absent: respiratory distress, wheezes, rales, rhonchi, stridor, chest wall tenderness, accessory muscle use, decreased breath sounds, prolonged expiratory Cardiovascular Exam: Present: regular rate, normal rhythm, normal heart sounds. Absent: systolic murmur, diastolic murmur, rubs, gallop, clicks GI/Abdominal exam: Present: soft, normal bowel sounds. Absent: distended, tenderness, guarding, rebound, rigid Extremities exam: Present: normal inspection, full ROM, normal capillary refill. Absent: tenderness, pedal edema, joint swelling, calf tenderness Back exam: Present: normal inspection Neurological exam: Present: alert, oriented X3, CN II-XII intact Psychiatric exam: Present: normal affect, normal mood Skin exam: Present: warm, dry, intact, normal color. Absent: rash Course Vital Signs 10/31/21 15:41 Temperature 98 F Pulse Rate 66 Respiratory 20 Rate Blood Pressure 136/83 O2 Sat by Pulse 99 Oximetry - Reevaluation(s) Reevaluation #1: 10/31/21 21:22 Medical record is reviewed Patient essentially asymptomatic. Was still complaining of some cramping in the bilateral calves when she was in the waiting room. Patient has no edema or roberto dence consistent with DVT. Patient banged easy and was low at 1.4. We'll replace. Patient had no abdominal tenderness despite having some abdominal discomfort prior to arrival. Patient is informed of results and questions answered Patient in no distress Medical Decision Making - Medical Decision Making Patient's pain is indeed come back at 1.4. Will order 2 g IV piggyback. Plan for discharge as the patient is in no distress. Patient does have mild elevation of the hepatic enzymes, magnesium 1.4, glucose 202, sodium slightly low at 133. Chloride 95. Patient may be slightly dehydrated with an increased BUN/creatinine ratio. CBC was normal. COVID-19 testing normal. Magnesium replaced. Importance of follow-up discussed with the patient. Patient has been taking magnesium supplementation at home but was only taking it when she started getting symptoms. Patient has only taken it for 2 days. I told her she likely needs to stay on this on a daily basis. She'll need to follow Dr. Bonner for repeat electrolyte testing. Patient voices understanding. In no distress at discharge. Vital signs stable, patient afebrile. Patient was told to return to the ER for any signs or symptoms worsen. Told to return immediately if any other problems arise. All questions answered. Treatment plan discussed. Patient in agreement Every effort has been made to ensure accuracy of this dictation. However, due to the limitations of electronic medical records and dictation devices, errors in charting still occur. Financial Counselor Dr. Recinos - Lab Data Result diagrams: 10/31/21 20:22 10/31/21 20: Lab Results 10/31/21 10/31/21 10/31/21 Range/Units 20:22 20:22 20:22 WBC 4.4 (3.8-10.6) k/uL RBC 3.72 L (3.80-5.40) m/uL Hgb 11.4 (11.4-16.0) gm/dL Hct 32.8 L (34.0-46.0) % MCV 88.1 (80.0-100.0) fL MCH 30.7 (25.0-35.0) pg MCHC 34.8 (31.0-37.0) g/dL RDW 15.1 (11.5-15.5) % Plt Count 359 (150-450) k/uL MPV 8.2 Neutrophils % 41 % Lymphocytes % 44 % Monocytes % 6 % Eosinophils % 5 % Basophils % 0 % Neutrophils # 1.8 (1.3-7.7) k/uL Lymphocytes # 1.9 (1.0-4.8) k/uL Monocytes # 0.3 (0-1.0) k/uL Eosinophils # 0.2 (0-0.7) k/uL Basophils # 0.0 (0-0.2) k/uL Poikilocytosis Slight Sodium 133 L (137-145) mmol/L Potassium 4.5 (3.5-5.1) mmol/L Chloride 95 L (98-107) mmol/L Carbon Dioxide 20 L (22-30) mmol/L Anion Gap 18 mmol/L BUN 23 H (7-17) mg/dL Creatinine 0.91 (0.52-1.04) mg/dL Est GFR (CKD-EPI)AfAm >90 (>60 ml/min/1.73 sqM) Est GFR (CKD-EPI)NonAf 79 (>60 ml/min/1.73 sqM) Glucose 212 H (74-99) mg/dL Calcium 9.5 (8.4-10.2) mg/dL Magnesium 1.4 L (1.6-2.3) mg/dL Total Bilirubin 0.3 (0.2-1.3) mg/dL AST 74 H (14-36) U/L ALT 55 H (4-34) U/L Alkaline Phosphatase 68 (38-126) U/L Total Protein 7.8 (6.3-8.2) g/dL Albumin 4.6 (3.5-5.0) g/dL Lipase 91 (23-300) U/L Urine Color Urine Appearance (Clear) Urine pH (5.0-8.0) Ur Specific [place] (1.001-1.035) Urine Protein (Negative) Urine Glucose (UA) (Negative) Urine Ketones (Negative) Urine Blood (Negative) Urine Nitrite (Negative) Urine Bilirubin (Negative) Urine Urobilinogen (<2.0) mg/dL Ur Leukocyte Esterase (Negative) Urine WBC (0-5) /hpf Ur Squamous Epith Cells (0-4) /hpf Urine Bacteria (None) /hpf Urine Mucus (None) /hpf Urine HCG, Qual (Not Detectd) Coronavirus (PCR) Not Detected (Not Detectd) 10/31/21 10/31/21 Range/Units 21:25 21:25 WBC (3.8-10.6) k/uL RBC (3.80-5.40) m/uL Hgb (11.4-16.0) gm/dL Hct (34.0-46.0) % MCV (80.0-100.0) fL MCH (25.0-35.0) pg MCHC (31.0-37.0) g/dL RDW (11.5-15.5) % Plt Count (150-450) k/uL MPV Neutrophils % % Lymphocytes % % Monocytes % % Eosinophils % % Basophils % % Neutrophils # (1.3-7.7) k/uL Lymphocytes # (1.0-4.8) k/uL Monocytes # (0-1.0) k/uL Eosinophils # (0-0.7) k/uL Basophils # (0-0.2) k/uL Poikilocytosis Sodium (137-145) mmol/L Potassium (3.5-5.1) mmol/L Chloride (98-107) mmol/L Carbon Dioxide (22-30) mmol/L Anion Gap mmol/L BUN (7-17) mg/dL Creatinine (0.52-1.04) mg/dL Est GFR (CKD-EPI)AfAm (>60 ml/min/1.73 sqM) Est GFR (CKD-EPI)NonAf (>60 ml/min/1.73 sqM) Glucose (74-99) mg/dL Calcium (8.4-10.2) mg/dL Magnesium (1.6-2.3) mg/dL Total Bilirubin (0.2-1.3) mg/dL AST (14-36) U/L ALT (4-34) U/L Alkaline Phosphatase (38-126) U/L Total Protein (6.3-8.2) g/dL Albumin (3.5-5.0) g/dL Lipase (23-300) U/L Urine Color Light Yellow Urine Appearance Clear (Clear) Urine pH 5.5 (5.0-8.0) Ur Specific [place] 1.019 (1.001-1.035) Urine Protein 2+ H (Negative) Urine Glucose (UA) Trace H (Negative) Urine Ketones Negative (Negative) Urine Blood Negative (Negative) Urine Nitrite Negative (Negative) Urine Bilirubin Negative (Negative) Urine Urobilinogen <2.0 (<2.0) mg/dL Ur Leukocyte Esterase Negative (Negative) Urine WBC 1 (0-5) /hpf Ur Squamous Epith Cells 1 (0-4) /hpf Urine Bacteria Rare H (None) /hpf Urine Mucus Rare H (None) /hpf Urine HCG, Qual Not Detected (Not Detectd) Coronavirus (PCR) (Not Detectd) Disposition Clinical Impression: Hypomagnesemia, Dehydration, Hyperglycemia Disposition: HOME SELF-CARE Condition: Stable Additional Instructions: Continue your magnesium supplementation on a daily basis as discussed. Make sure you follow-up with your regular doctor did call first thing Wednesday morning for follow-up appointment as soon as possible. You'll need to have your magnesium rechecked by your regular physician. Follow-up with your regular physician as directed. Return to the ER immediately if any symptoms worsen, new symptoms arise, or any other problems develop. Is patient prescribed a controlled substance at d/c from ED?: No Referrals: Brian Bonner MD [Primary Care Provider] - As Soon As Possible Time of Disposition: 22:35
[2021-10-31 20:28] LABS: Basophils % (A) 0 %; Eosinophils # (A) 0.2 k/uL (0-0.7); Eosinophils % (A) 5 %; HCT 32.8 % (34.0-46.0); HGB 11.4 gm/dL (11.4-16.0); Lymphocytes # (A) 1.9 k/uL (1.0-4.8); Lymphocytes % (A) 44 %; MCH 30.7 pg (25.0-35.0); MCHC 34.8 g/dL (31.0-37.0); MCV 88.1 fL (80.0-100.0); Mean Platelet Volume 8.2; Monocytes # (A) 0.3 k/uL (0-1.0); Monocytes % (A) 6 %; Neutrophils # (A) 1.8 k/uL (1.3-7.7); Neutrophils % (A) 41 %; Platelet Count 359 k/uL (150-450); Poikilocytosis Slight; RBC 3.72 m/uL (3.80-5.40); RDW 15.1 % (11.5-15.5); WBC 4.4 k/uL (3.8-10.6)
[2021-10-31 20:41] LABS: ALT 55 U/L (4-34); AST 74 U/L (14-36); African American GFR (CKD) >90 (>60 ml/min/1.73 sqM); Albumin 4.6 g/dL (3.5-5.0); Alkaline Phosphatase 68 U/L (38-126); Anion Gap 18 mmol/L; Blood Urea Nitrogen 23 mg/dL (7-17); Calcium 9.5 mg/dL (8.4-10.2); Carbon Dioxide 20 mmol/L (22-30); Chloride 95 mmol/L (98-107); Glucose 212 mg/dL (74-99); Lipase 91 U/L (23-300); Magnesium 1.4 mg/dL (1.6-2.3); Non-African American GFR(CKD) 79 (>60 ml/min/1.73 sqM); Potassium 4.5 mmol/L (3.5-5.1); Sodium 133 mmol/L (137-145); Total Bilirubin 0.3 mg/dL (0.2-1.3); Total Protein 7.8 g/dL (6.3-8.2)
[2021-10-31] MEDS ORDERED: Magnesium Replacement Protocol 1 EACH MISC MISCELLANE PRN (21:20)
[2021-10-31] MEDS: MAGNESIUM SULFATE-D5W PMX 1 GM in DEXTROSE/WATER 1 100ML.BAG IVPB SCH ×2 (21:41→22:41)
[2021-10-31 22:03] LABS: Appearance,Urine Clear (Clear); Bacteria,Urine Rare /hpf; Bilirubin,Urine Negative (Negative); Blood,Urine Negative (Negative); Color,Urine Light Yellow; Glucose,Urine (UA) Trace (Negative); Ketones,Urine Negative (Negative); Leukocyte Esterase,Urine Negative (Negative); Mucus,Urine Rare /hpf; Nitrite,Urine Negative (Negative); PH, Urine 5.5 (5.0-8.0); Protein,Urine 2+ (Negative); Specific Gravity,Urine 1.019 (1.001-1.035); Squamous Epithelial Cell,Urine 1 /hpf (0-4); Urobilinogen,Urine <2.0 mg/dL (<2.0); WBC,Urine 1 /hpf (0-5)
[2021-10-31 22:41] VITALS: RESP 16
[2021-10-31] MEDS ORDERED: ONDANSETRON ODT 4 MG TAB PO STA (23:02)
[2021-10-31] MEDS ORDERED: LOSARTAN-HCTZ 50-12.5 MG 1 EACH TAB PO SCH (23:14)
[2021-10-31 23:59] VITALS: PULSE 98
[2021-11-01 00:46] VITALS: BP 155/90
[2021-11-01] MEDS ORDERED: LOSARTAN-HCTZ 50-12.5 MG 1 EACH TAB PO SCH (09:00)
== END 2021-11-01 00:46 | disposition home or self-care (01) ==
LOC: EC 15:20
DX: E83.42 Hypomagnesemia (principal); E86.0 Dehydration; E11.65 Type 2 diabetes mellitus with hyperglycemia; E78.5 Hyperlipidemia, unspecified; I10 Essential (primary) hypertension; F17.200 Nicotine dependence, unspecified, uncomplicated; Z91.018 Allergy to other foods; Z91.011 Allergy to milk products; Z91.012 Allergy to eggs; Z88.8 Allergy status to other drugs, medicaments and biological substances; Z79.84 Long term (current) use of oral hypoglycemic drugs; Z79.899 Other long term (current) drug therapy; Z20.822 Contact with and (suspected) exposure to COVID-19
CPT/HCPCS: 36415; 80053; 83690; 83735; 85025; 81001; 81025; 87635; 99284; 96365; 96366; J3475

== ENCOUNTER 2022-01-28 13:56 | Emergency (ER) | payer OTHER ==
[2022-01-28 14:33] VITALS: RESP 16; TEMP 97.8
[2022-01-28 18:31] LABS: Glucose,Whole Blood 223 mg/dL (70-110)
--- NOTE | 2022-01-28 18:41 | ED ---
Weakness HPI - General Chief complaint: Weakness Stated complaint: Vomiting,confusion Time Seen by Provider: 01/28/22 18:23 Source: patient Mode of arrival: ambulatory Limitations: no limitations - History of Present Illness Initial comments: This patient is a 41-year-old woman who presents to have evaluation for fatigue, feeling like she is living in a fog, and just not feeling right which is been going on for about 3 days now. Patient states that she has not had her diabetes medications because they were sent to the wrong place. She denies carmelita pains. No dyspnea. Occasional cough but not pronounced. MD Complaint: generalized weakness Onset/Timin -: days(s) Location: generalized Severity scale (1-10): 0 Improves with: none Worsens with: none Context: other (Out of medication) Associated Symptoms: confusion - Related Data Home Medications Medication Instructions Recorded Confirmed Glimepiride [Amaryl] 4 mg PO BID 07/30/13 10/13/21 Albuterol Nebulized [Ventolin 2.5 mg INHALATION RT-Q6H PRN 09/11/14 10/13/21 Nebulized] Cetirizine HCl 10 mg PO DAILY 06/30/21 10/13/21 EPINEPHrine (Auto Inject) [Epipen] 0.3 mg IM ONCE PRN 06/30/21 10/13/21 Fluticasone Propion/Salmeterol 1 puff INHALATION RT-BID 06/30/21 10/13/21 [Advair Hfa 45-21 Mcg Inhaler] Levothyroxine Sodium [Synthroid] 75 mcg PO DAILY 06/30/21 10/13/21 Magnesium Oxide [Tolentino] 500 mg PO DAILY 06/30/21 10/13/21 Pantoprazole [Protonix] 40 mg PO DAILY 06/30/21 10/13/21 lisinopriL [Prinivil] 10 mg PO DAILY 06/30/21 10/13/21 Albuterol Sulfate [Proair Hfa] 2 puff INHALATION RT-Q6H PRN 08/31/21 10/13/21 Losartan Potassium [Cozaar] 25 mg PO DIRECTED 08/31/21 10/13/21 Venlafaxine HCl ER [Effexor XR] 75 mg PO DAILY 08/31/21 10/13/21 Previous Rx's Medication Instructions Recorded gemfibroziL [Lopid] 600 mg PO AC-BID #60 tablet 05/02/19 hydroCHLOROthiazide 12.5 mg PO DAILY #30 capsule 05/02/19 metFORMIN HCL [Glucophage] 1,000 mg PO BID #60 tab 05/02/19 Allergies Allergy/AdvReac Type Severity Reaction Status Date / Time cinnamon Allergy Anaphylaxis Verified 01/28/22 14:33 egg Allergy Unknown Verified 01/28/22 14:33 milk AdvReac Cough Verified 01/28/22 14:33 ropinirole [From Requip] AdvReac Shaking Verified 01/28/22 14:33 Review of Systems ROS Statement: Those systems with pertinent positive or pertinent negative responses have been documented in the HPI. ROS Other: All systems not noted in ROS Statement are negative. Constitutional: Reports: weakness. Denies: fever, chills Respiratory: Reports: cough. Denies: dyspnea Cardiovascular: Denies: chest pain, palpitations, edema, syncope Gastrointestinal: Denies: abdominal pain, vomiting, diarrhea, constipation, melena, hematochezia Genitourinary: Denies: dysuria, hematuria Musculoskeletal: Denies: back pain Skin: Denies: rash Neurological: Denies: headache, weakness, numbness Past Medical History Past Medical History: Diabetes Mellitus, Hyperlipidemia, Hypertension Additional Past Medical History / Comment(s): BRONCHITIS, SINUSITIS History of Any Multi-Drug Resistant Organisms: None Reported Additional Past Surgical History / Comment(s): nose surgery-POLYPS REMOVED Past Anesthesia/Blood Transfusion Reactions: No Reported Reaction Past Psychological History: ADD/ADHD, Anxiety, Depression Smoking Status: Former smoker Past Alcohol Use History: None Reported Past Drug Use History: None Reported - Past Family History Father History Unknown: Yes Mother Family Medical History: Congestive Heart Failure (CHF), Diabetes Mellitus, Hyperlipidemia, Hypertension General Exam Limitations: no limitations General appearance: alert, in no apparent distress Head exam: Present: atraumatic, normocephalic Eye exam: Present: normal appearance. Absent: scleral icterus, conjunctival injection Neck exam: Present: normal inspection Respiratory exam: Present: normal lung sounds bilaterally. Absent: respiratory distress, wheezes, rales, rhonchi, stridor Cardiovascular Exam: Present: regular rate, normal rhythm, normal heart sounds. Absent: systolic murmur, diastolic murmur, rubs, gallop GI/Abdominal exam: Present: soft. Absent: distended, tenderness, guarding, rebound, rigid, mass Extremities exam: Present: normal inspection, normal capillary refill. Absent: pedal edema, calf tenderness Back exam: Present: normal inspection. Absent: CVA tenderness (R), CVA tende rness (L) Neurological exam: Present: alert Skin exam: Present: warm, dry, intact, normal color. Absent: rash Course Vital Signs 01/28/22 01/28/22 14:30 22:04 Temperature 97.8 F Pulse Rate 103 H 88 Respiratory 16 16 Rate Blood Pressure 146/77 139/76 O2 Sat by Pulse 97 97 Oximetry EKG Findings - EKG Results: EKG: interpreted by ERMD, sinus rhythm (Rate 88 bpm), normal axis (Normal), normal QRS (Normal), normal ST/T (Normal), no acute changes - AL, Pacemaker, Normal: Normal tracing: normal tracing Medical Decision Making - Medical Decision Making Patient's 41-year-old woman with nonspecific neurologic complaint, mainly that she feels foggy. Workup here is unremarkable other than patient's hyperglycemia and will have patient follow with neurology for further testing. Discussed appropriate further care and follow-up as well as return parameters. - Lab Data Result diagrams: 01/28/22 18:49 01/28/22 18:49 Lab Results 01/28/22 01/28/22 01/28/22 Range/Units 18:29 18:38 18:39 WBC (3.8-10.6) k/uL RBC (3.80-5.40) m/uL Hgb (11.4-16.0) gm/dL Hct (34.0-46.0) % MCV (80.0-100.0) fL MCH (25.0-35.0) pg MCHC (31.0-37.0) g/dL RDW (11.5-15.5) % Plt Count (150-450) k/uL MPV Neutrophils % % Lymphocytes % % Monocytes % % Eosinophils % % Basophils % % Neutrophils # (1.3-7.7) k/uL Lymphocytes # (1.0-4.8) k/uL Monocytes # (0-1.0) k/uL Eosinophils # (0-0.7) k/uL Basophils # (0-0.2) k/uL Poikilocytosis PT (9.0-12.0) sec INR (<1.2) APTT (22.0-30.0) sec Sodium (137-145) mmol/L Potassium (3.5-5.1) mmol/L Chloride (98-107) mmol/L Carbon Dioxide (22-30) mmol/L Anion Gap mmol/L BUN (7-17) mg/dL Creatinine (0.52-1.04) mg/dL Est GFR (CKD-EPI)AfAm (>60 ml/min/1.73 sqM) Est GFR (CKD-EPI)NonAf (>60 ml/min/1.73 sqM) Glucose (74-99) mg/dL POC Glucose (mg/dL) 223 H (70-110) mg/dL POC Glu Research Program Coordinator ID July, Plasma Lactic Acid Kb (0.7-2.0) mmol/L Calcium (8.4-10.2) mg/dL Total Bilirubin (0.2-1.3) mg/dL AST (14-36) U/L ALT (4-34) U/L Alkaline Phosphatase (38-126) U/L Troponin I (0.000-0.034) ng/mL Total Protein (6.3-8.2) g/dL Albumin (3.5-5.0) g/dL Urine Color Yellow Urine Appearance Clear (Clear) Urine pH 6.5 (5.0-8.0) Ur Specific Qulin 1.037 H (1.001-1.035) Urine Protein 4+ H (Negative) Urine Glucose (UA) Trace H (Negative) Urine Ketones Trace H (Negative) Urine Blood Trace H (Negative) Urine Nitrite Negative (Negative) Urine Bilirubin Negative (Negative) Urine Urobilinogen 2.0 (<2.0) mg/dL Ur Leukocyte Esterase Negative (Negative) Urine RBC 2 (0-5) /hpf Urine WBC 1 (0-5) /hpf Ur Squamous Epith Cells 1 (0-4) /hpf Urine Mucus Rare H (None) /hpf Urine HCG, Qual (Not Detectd) Acetone, Qual (Negative) Coronavirus (PCR) Not Detected (Not Detectd) 01/28/22 01/28/22 01/28/22 Range/Units 18:39 18:49 18:49 WBC 5.0 (3.8-10.6) k/uL RBC 3.69 L (3.80-5.40) m/uL Hgb 11.4 (11.4-16.0) gm/dL Hct 31.7 L (34.0-46.0) % MCV 85.9 (80.0-100.0) fL MCH 30.9 (25.0-35.0) pg MCHC 36.0 (31.0-37.0) g/dL RDW 14.7 (11.5-15.5) % Plt Count 342 (150-450) k/uL MPV 9.6 Neutrophils % 48 % Lymphocytes % 40 % Monocytes % 4 % Eosinophils % 5 % Basophils % 1 % Neutrophils # 2.4 (1.3-7.7) k/uL Lymphocytes # 2.0 (1.0-4.8) k/uL Monocytes # 0.2 (0-1.0) k/uL Eosinophils # 0.2 (0-0.7) k/uL Basophils # 0.1 (0-0.2) k/uL Poikilocytosis Slight PT 10.3 (9.0-12.0) sec INR 1.0 (<1.2) APTT 22.3 (22.0-30.0) sec Sodium (137-145) mmol/L Potassium (3.5-5.1) mmol/L Chloride (98-107) mmol/L Carbon Dioxide (22-30) mmol/L Anion Gap mmol/L BUN (7-17) mg/dL Creatinine (0.52-1.04) mg/dL Est GFR (CKD-EPI)AfAm (>60 ml/min/1.73 sqM) Est GFR (CKD-EPI)NonAf (>60 ml/min/1.73 sqM) Glucose (74-99) mg/dL POC Glucose (mg/dL) (70-110) mg/dL POC Glu Research Program Coordinator ID Plasma Lactic Acid Kb (0.7-2.0) mmol/L Calcium (8.4-10.2) mg/dL Total Bilirubin (0.2-1.3) mg/dL AST (14-36) U/L ALT (4-34) U/L Alkaline Phosphatase (38-126) U/L Troponin I (0.000-0.034) ng/mL Total Protein (6.3-8.2) g/dL Albumin (3.5-5.0) g/dL Urine Color Urine Appearance (Clear) Urine pH (5.0-8.0) Ur Specific Qulin (1.001-1.035) Urine Protein (Negative) Urine Glucose (UA) (Negative) Urine Ketones (Negative) Urine Blood (Negative) Urine Nitrite (Negative) Urine Bilirubin (Negative) Urine Urobilinogen (<2.0) mg/dL Ur Leukocyte Esterase (Negative) Urine RBC (0-5) /hpf Urine WBC (0-5) /hpf Ur Squamous Epith Cells (0-4) /hpf Urine Mucus (None) /hpf Urine HCG, Qual Not Detected (Not Detectd) Acetone, Qual (Negative) Coronavirus (PCR) (Not Detectd) 01/28/22 01/28/22 01/28/22 Range/Units 18:49 18:49 18:49 WBC (3.8-10.6) k/uL RBC (3.80-5.40) m/uL Hgb (11.4-16.0) gm/dL Hct (34.0-46.0) % MCV (80.0-100.0) fL MCH (25.0-35.0) pg MCHC (31.0-37.0) g/dL RDW (11.5-15.5) % Plt Count (150-450) k/uL MPV Neutrophils % % Lymphocytes % % Monocytes % % Eosinophils % % Basophils % % Neutrophils # (1.3-7.7) k/uL Lymphocytes # (1.0-4.8) k/uL Monocytes # (0-1.0) k/uL Eosinophils # (0-0.7) k/uL Basophils # (0-0.2) k/uL Poikilocytosis PT (9.0-12.0) sec INR (<1.2) APTT (22.0-30.0) sec Sodium 135 L (137-145) mmol/L Potassium 4.1 (3.5-5.1) mmol/L Chloride 96 L (98-107) mmol/L Carbon Dioxide 30 (22-30) mmol/L Anion Gap 9 mmol/L BUN 19 H (7-17) mg/dL Creatinine 0.69 (0.52-1.04) mg/dL Est GFR (CKD-EPI)AfAm >90 (>60 ml/min/1.73 sqM) Est GFR (CKD-EPI)NonAf >90 (>60 ml/min/1.73 sqM) Glucose 211 H (74-99) mg/dL POC Glucose (mg/dL) (70-110) mg/dL POC Glu Research Program Coordinator ID Plasma Lactic Acid Kb 0.9 (0.7-2.0) mmol/L Calcium 9.4 (8.4-10.2) mg/dL Total Bilirubin 0.4 (0.2-1.3) mg/dL AST 67 H (14-36) U/L ALT 46 H (4-34) U/L Alkaline Phosphatase 65 (38-126) U/L Troponin I <0.012 (0.000-0.034) ng/mL Total Protein 8.3 H (6.3-8.2) g/dL Albumin 4.6 (3.5-5.0) g/dL Urine Color Urine Appearance (Clear) Urine pH (5.0-8.0) Ur Specific Qulin (1.001-1.035) Urine Protein (Negative) Urine Glucose (UA) (Negative) Urine Ketones (Negative) Urine Blood (Negative) Urine Nitrite (Negative) Urine Bilirubin (Negative) Urine Urobilinogen (<2.0) mg/dL Ur Leukocyte Esterase (Negative) Urine RBC (0-5) /hpf Urine WBC (0-5) /hpf Ur Squamous Epith Cells (0-4) /hpf Urine Mucus (None) /hpf Urine HCG, Qual (Not Detectd) Acetone, Qual (Negative) Coronavirus (PCR) (Not Detectd) 01/28/22 Range/Units 18:49 WBC (3.8-10.6) k/uL RBC (3.80-5.40) m/uL Hgb (11.4-16.0) gm/dL Hct (34.0-46.0) % MCV (80.0-100.0) fL MCH (25.0-35.0) pg MCHC (31.0-37.0) g/dL RDW (11.5-15.5) % Plt Count (150-450) k/uL MPV Neutrophils % % Lymphocytes % % Monocytes % % Eosinophils % % Basophils % % Neutrophils # (1.3-7.7) k/uL Lymphocytes # (1.0-4.8) k/uL Monocytes # (0-1.0) k/uL Eosinophils # (0-0.7) k/uL Basophils # (0-0.2) k/uL Poikilocytosis PT (9.0-12.0) sec INR (<1.2) APTT (22.0-30.0) sec Sodium (137-145) mmol/L Potassium (3.5-5.1) mmol/L Chloride (98-107) mmol/L Carbon Dioxide (22-30) mmol/L Anion Gap mmol/L BUN (7-17) mg/dL Creatinine (0.52-1.04) mg/dL Est GFR (CKD-EPI)AfAm (>60 ml/min/1.73 sqM) Est GFR (CKD-EPI)NonAf (>60 ml/min/1.73 sqM) Glucose (74-99) mg/dL POC Glucose (mg/dL) (70-110) mg/dL POC Glu Research Program Coordinator ID Plasma Lactic Acid Kb (0.7-2.0) mmol/L Calcium (8.4-10.2) mg/dL Total Bilirubin (0.2-1.3) mg/dL AST (14-36) U/L ALT (4-34) U/L Alkaline Phosphatase (38-126) U/L Troponin I (0.000-0.034) ng/mL Total Protein (6.3-8.2) g/dL Albumin (3.5-5.0) g/dL Urine Color Urine Appearance (Clear) Urine pH (5.0-8.0) Ur Specific Qulin (1.001-1.035) Urine Protein (Negative) Urine Glucose (UA) (Negative) Urine Ketones (Negative) Urine Blood (Negative) Urine Nitrite (Negative) Urine Bilirubin (Negative) Urine Urobilinogen (<2.0) mg/dL Ur Leukocyte Esterase (Negative) Urine RBC (0-5) /hpf Urine WBC (0-5) /hpf Ur Squamous Epith Cells (0-4) /hpf Urine Mucus (None) /hpf Urine HCG, Qual (Not Detectd) Acetone, Qual Negative (Negative) Coronavirus (PCR) (Not Detectd) Disposition Clinical Impression: Hyperglycemia Disposition: HOME SELF-CARE Condition: Good Instructions (If sedation given, give patient instructions): Diabetic Hyperglycemia (ED) Is patient prescribed a controlled substance at d/c from ED?: No Referrals: Brian Bonner MD [Primary Care Provider] - 1-2 days
[2022-01-28 18:58] LABS: Basophils # (A) 0.1 k/uL (0-0.2); Basophils % (A) 1 %; Eosinophils # (A) 0.2 k/uL (0-0.7); Eosinophils % (A) 5 %; HCT 31.7 % (34.0-46.0); HGB 11.4 gm/dL (11.4-16.0); Lymphocytes % (A) 40 %; MCH 30.9 pg (25.0-35.0); MCV 85.9 fL (80.0-100.0); Mean Platelet Volume 9.6; Monocytes # (A) 0.2 k/uL (0-1.0); Monocytes % (A) 4 %; Neutrophils # (A) 2.4 k/uL (1.3-7.7); Neutrophils % (A) 48 %; Platelet Count 342 k/uL (150-450); Poikilocytosis Slight; RBC 3.69 m/uL (3.80-5.40); RDW 14.7 % (11.5-15.5)
[2022-01-28 19:03] LABS: Appearance,Urine Clear (Clear); Bilirubin,Urine Negative (Negative); Blood,Urine Trace (Negative); Color,Urine Yellow; Glucose,Urine (UA) Trace (Negative); Ketones,Urine Trace (Negative); Leukocyte Esterase,Urine Negative (Negative); Mucus,Urine Rare /hpf; Nitrite,Urine Negative (Negative); PH, Urine 6.5 (5.0-8.0); Protein,Urine 4+ (Negative); RBC,Urine 2 /hpf (0-5); Specific Gravity,Urine 1.037 (1.001-1.035); Squamous Epithelial Cell,Urine 1 /hpf (0-4); WBC,Urine 1 /hpf (0-5)
--- NOTE | 2022-01-28 19:08 | XR ---
EXAMINATION TYPE: XR chest 2V DATE OF EXAM: 01/28/2022 COMPARISON: 08/31/2021 HISTORY: Cough TECHNIQUE: 2 views FINDINGS: Heart and mediastinum are normal. Lungs are clear. Diaphragm is normal. Bony thorax appears normal. IMPRESSION: Normal chest. No change.
[2022-01-28 19:11] LABS: Partial Thromboplastin Time 22.3 sec (22.0-30.0); Prothrombin Time 10.3 sec (9.0-12.0)
[2022-01-28 19:13] LABS: ALT 46 U/L (4-34); AST 67 U/L (14-36); African American GFR (CKD) >90 (>60 ml/min/1.73 sqM); Albumin 4.6 g/dL (3.5-5.0); Alkaline Phosphatase 65 U/L (38-126); Anion Gap 9 mmol/L; Blood Urea Nitrogen 19 mg/dL (7-17); Calcium 9.4 mg/dL (8.4-10.2); Carbon Dioxide 30 mmol/L (22-30); Chloride 96 mmol/L (98-107); Glucose 211 mg/dL (74-99); Non-African American GFR(CKD) >90 (>60 ml/min/1.73 sqM); Potassium 4.1 mmol/L (3.5-5.1); Sodium 135 mmol/L (137-145); Total Bilirubin 0.4 mg/dL (0.2-1.3); Total Protein 8.3 g/dL (6.3-8.2)
[2022-01-28] MEDS ORDERED: SODIUM CHLORIDE 0.9% 1,000 ML IV ONE ×2 (19:13)
[2022-01-28 22:05] VITALS: BP 139/76; PULSE 88
== END 2022-01-28 22:05 | disposition home or self-care (01) ==
LOC: EC 13:56
DX: E11.65 Type 2 diabetes mellitus with hyperglycemia (principal); E78.5 Hyperlipidemia, unspecified; I10 Essential (primary) hypertension; F41.9 Anxiety disorder, unspecified; F32.A Depression, unspecified; Z87.891 Personal history of nicotine dependence; Z91.018 Allergy to other foods; Z91.012 Allergy to eggs; Z88.8 Allergy status to other drugs, medicaments and biological substances; Z79.899 Other long term (current) drug therapy; Z20.822 Contact with and (suspected) exposure to COVID-19
CPT/HCPCS: 36415; 71046; 80053; 81001; 81025; 82009; 83605; 84484; 85025; 85610; 85730; 87635; 93005; 96360; 96361; 99285

== ENCOUNTER 2023-02-15 19:55 | Inpatient (IN) | payer OTHER ==
[~2023-02-15 19:55] MED LIST: CALCIUM CHLORIDE 100 MG/ML 10 ML SYRINGE ONE; EPINEPHrine 10 ML SYRINGE (0.1 MG/ML) ONE; NOREPINEPHRINE 1 MG/ML 4 ML VIAL IV ONE; SODIUM BICARB 8.4% 50 ML SYR (1 MEQ/ML) ONE; SODIUM CHLORIDE 0.9% 250 ML BAG ONE
[2023-02-15 20:10] LABS: Glucose,Whole Blood 524 mg/dL (70-110)
[2023-02-15] MEDS ORDERED: SODIUM CHLORIDE 0.9% 1,000 ML IV ONE ×2 (20:13→20:53)
[2023-02-15 20:18] LABS: Basophils # (A) 0.1 k/uL (0-0.2); Basophils % (A) 1 %; Eosinophils # (A) 0.2 k/uL (0-0.7); Eosinophils % (A) 2 %; HCT 34.8 % (34.0-46.0); HGB 10.1 gm/dL (11.4-16.0); Hypochromasia Marked; Lymphocytes # (A) 3.9 k/uL (1.0-4.8); Lymphocytes % (A) 49 %; MCH 28.2 pg (25.0-35.0); MCHC 28.9 g/dL (31.0-37.0); MCV 97.2 fL (80.0-100.0); Mean Platelet Volume 9.9; Monocytes # (A) 0.4 k/uL (0-1.0); Monocytes % (A) 5 %; Neutrophils # (A) 3.2 k/uL (1.3-7.7); Neutrophils % (A) 40 %; Platelet Count 320 k/uL (150-450); RBC 3.58 m/uL (3.80-5.40); RDW 15.1 % (11.5-15.5)
[2023-02-15] MEDS ORDERED: methylPREDNISolone SOD SUCCI 125 MG/2 ML VIAL IV STA (20:22)
[2023-02-15] MEDS ORDERED: ALBUTEROL NEBULIZED 2.5 MG/3 ML INHALATION STA (20:22)
[2023-02-15 20:26] LABS: VBG PH 6.83 (7.31-7.41)
[2023-02-15 20:27] LABS: ALT 35 U/L (4-34); AST 56 U/L (14-36); African American GFR (CKD) 75 (>60 ml/min/1.73 sqM); Alkaline Phosphatase 57 U/L (38-126); Anion Gap 24 mmol/L; Blood Urea Nitrogen 12 mg/dL (7-17); Calcium 9.8 mg/dL (8.4-10.2); Carbon Dioxide 11 mmol/L (22-30); Chloride 100 mmol/L (98-107); Non-African American GFR(CKD) 65 (>60 ml/min/1.73 sqM); Sodium 135 mmol/L (137-145); Total Bilirubin 0.3 mg/dL (0.2-1.3); Total Protein 6.8 g/dL (6.3-8.2)
[2023-02-15 20:30] LABS: INR 0.9 (<1.2); Prothrombin Time 10.4 sec (10.0-12.5)
[2023-02-15] MEDS ORDERED: NOREPINEPHRINE 8 MG in SODIUM CHLORIDE 0.9% 250 ML IV ONE (20:30)
--- NOTE | 2023-02-15 20:30 | XR ---
EXAMINATION TYPE: XR chest 1V portable DATE OF EXAM: 02/15/2023 Comparison: 01/28/2022 Clinical History: 42-year-old female post arrest Findings: ET tube tip 2.2 cm above the gopal. Attention on follow-up. Heart is borderline in size. Diffuse int erstitial opacity. No consolidation, pneumothorax, or pleural effusion. NG tube courses below the ignacio phragm. Impression: 1. ET tube tip 2.2 cm from the gopal. Attention on follow-up to ensure satisfactory position. 2. Borderline heart size and interstitial density. Follow-up to exclude early pulmonary edema.
[2023-02-15 20:32] LABS: Potassium 6.6 mmol/L (3.5-5.1)
[2023-02-15] MEDS ORDERED: NOREPINEPHRINE 32 MG in SODIUM CHLORIDE 0.9% 218 ML IV ONE (20:45)
[2023-02-15] MEDS ORDERED: CALCIUM GLUCONATE IN NACL 1 GM in SALINE 1 100ML.BAG IVPB ONE (21:00)
[2023-02-15] MEDS ORDERED: EPINEPHrine 4 MG in DEXTROSE 5% IN WATER 250 ML IV ONE ×2 (21:00)
[2023-02-15] MEDS ORDERED: ALBUTEROL NEBULIZED (CONC) 5 MG, SODIUM CHLORIDE 0.9% NEBULIZ 3 ML INHALATION STA ×2 (21:05)
--- NOTE | 2023-02-15 21:17 | ED ---
General Adult HPI - General Chief complaint: Cardiac Arrest/CPR Stated complaint: Cardiac Arrest Source: EMS, RN notes reviewed, old records reviewed Mode of arrival: EMS Limitations: altered mental status - History of Present Illness Initial comments: 42-year-old female presenting status post cardiac arrest. This was a witnessed arrest by bystanders. The patient had apparently complained of dyspnea. She had fallen with head trauma. She was found by paramedics And pulseless. CPR was started on Cipro and she had approximately 40 total minutes of prehospital CPR with BVM. Upon arrival the patient is in PEA arrest. Please refer to the resuscitation documentations in the emergency department. - Related Data Home Medications Medication Instructions Recorded Confirmed Glimepiride [Amaryl] 4 mg PO BID 07/30/13 10/13/21 Albuterol Nebulized [Ventolin 2.5 mg INHALATION RT-Q6H PRN 09/11/14 10/13/21 Nebulized] Cetirizine HCl 10 mg PO DAILY 06/30/21 10/13/21 EPINEPHrine (Auto Inject) [Epipen] 0.3 mg IM ONCE PRN 06/30/21 10/13/21 Fluticasone Propion/Salmeterol 1 puff INHALATION RT-BID 06/30/21 10/13/21 [Advair Hfa 45-21 Mcg Inhaler] Levothyroxine Sodium [Synthroid] 75 mcg PO DAILY 06/30/21 10/13/21 Magnesium Oxide [Tolentino] 500 mg PO DAILY 06/30/21 10/13/21 Pantoprazole [Protonix] 40 mg PO DAILY 06/30/21 10/13/21 lisinopriL [Prinivil] 10 mg PO DAILY 06/30/21 10/13/21 Albuterol Sulfate [Proair Hfa] 2 puff INHALATION RT-Q6H PRN 08/31/21 10/13/21 Losartan Potassium [Cozaar] 25 mg PO DIRECTED 08/31/21 10/13/21 Venlafaxine HCl ER [Effexor XR] 75 mg PO DAILY 08/31/21 10/13/21 Previous Rx's Medication Instructions Recorded gemfibroziL [Lopid] 600 mg PO AC-BID #60 tablet 05/02/19 hydroCHLOROthiazide 12.5 mg PO DAILY #30 capsule 05/02/19 metFORMIN HCL [Glucophage] 1,000 mg PO BID #60 tab 05/02/19 Allergies Allergy/AdvReac Type Severity Reaction Status Date / Time cinnamon Allergy Anaphylaxis Verified 02/15/23 20:15 egg Allergy Unknown Verified 02/15/23 20:15 milk AdvReac Cough Verified 02/15/23 20:15 ropinirole [From Requip] AdvReac Shaking Verified 02/15/23 20:15 Review of Systems ROS Statement: Those systems with pertinent positive or pertinent negative responses have been documented in the HPI. ROS Other: All systems not noted in ROS Statement are negative. Past Medical History Past Medical History: Diabetes Mellitus, Hyperlipidemia, Hypertension Additional Past Medical History / Comment(s): BRONCHITIS, SINUSITIS History of Any Multi-Drug Resistant Organisms: None Reported Additional Past Surgical History / Comment(s): nose surgery-POLYPS REMOVED Past Anesthesia/Blood Transfusion Reactions: No Reported Reaction Past Psychological History: ADD/ADHD, Anxiety, Depression Smoking Status: Former smoker Past Alcohol Use History: None Reported Past Drug Use History: None Reported - Past Family History Father History Unknown: Yes Mother Family Medical History: Congestive Heart Failure (CHF), Diabetes Mellitus, Hyperlipidemia, Hypertension General Exam General appearance: other (Apneic, pulseless ) Eye exam: Absent: PERRL (Pupils are 7 mm bilaterally and nonreactive) Respiratory exam: Present: other (Dylon tube placed by paramedics) GI/Abdominal exam: Present: distended Extremities exam: Present: normal inspection Neurological exam: Absent: alert, oriented X3 Skin exam: Present: cyanosis, pallor Course Vital Signs 02/15/23 02/15/23 02/15/23 19:55 19:58 20:05 Temperature 96.3 F L Pulse Rate 20 L 98 48 L Respiratory 24 20 20 Rate Blood Pressure 143/88 98/52 90/50 O2 Sat by Pulse 100 100 100 Oximetry Fraction of 100 Inspired Oxygen (FIO2) 02/15/23 02/15/23 02/15/23 20:06 20:11 20:16 Temperature Pulse Rate 94 84 118 H Respiratory 20 20 20 Rate Blood Pressure 76/39 60/36 56/30 O2 Sat by Pulse 100 100 100 Oximetry Fraction of Inspired Oxygen (FIO2) 02/15/23 02/15/23 02/15/23 20:18 20:19 20:20 Temperature Pulse Rate 70 109 H Respiratory 20 Rate Blood Pressure 130/108 O2 Sat by Pulse 100 Oximetry Fraction of 100 Inspired Oxygen (FIO2) 02/15/23 02/15/23 02/15/23 20:24 20:27 20:29 Temperature Pulse Rate 48 L 99 98 Respiratory 20 20 20 Rate Blood Pressure 84/50 108/94 108/57 O2 Sat by Pulse 100 100 100 Oximetry Fraction of Inspired Oxygen (FIO2) 02/15/23 02/15/23 02/15/23 20:36 20:45 20:50 Temperature Pulse Rate 78 77 78 Respiratory 20 20 20 Rate Blood Pressure 72/48 80/45 86/51 O2 Sat by Pulse 100 100 100 Oximetry Fraction of Inspired Oxygen (FIO2) 02/15/23 02/15/23 02/15/23 20:55 21:00 21:05 Temperature Pulse Rate 80 84 88 Respiratory 20 20 20 Rate Blood Pressure 99/61 111/60 133/84 O2 Sat by Pulse 100 100 100 Oximetry Fraction of Inspired Oxygen (FIO2) 02/15/23 02/15/23 21:07 21:10 Temperature Pulse Rate 91 92 Respiratory 20 Rate Blood Pressure 156/86 O2 Sat by Pulse 100 Oximetry Fraction of Inspired Oxygen (FIO2) Procedures - Central Line Placement Left Femoral Consent Obtained: emergent situation Patient Placed on Monitor/Pulse Ox: Yes MD Prep: mask Central Line Prep: Chlorhexidine scrub Ultrasound Used for Placement: Yes Central Line Lumen Inserted: triple Bloods Obtained for Lab: Yes Central Line Position: good blood return, all ports aspirated, flushed, capped, sutured in place with nylon Dressing Applied: Tegaderm Patient Tolerated Procedure: well Complications: none - Intubation Laryngoscope: Marco Antonio Size: 3 ET Tube Size: 7.5 ET Tube Uncuffed: No Tube Secured Depth (cm): 22 Tube Secured Location: lips Tube Placement Confirmation: visualized tube passing through cords, equal breath sounds bilaterally, no breath sounds over epigastrium, confirmation by capnometry Patient Tolerated Procedure: well Intubation Complications: none Medical Decision Making - Medical Decision Making Was pt. sent in by a medical professional or institution (, PA, BILL ADJUSTER, urgent care, hospital, or long term...) When possible be specific @ -No Did you speak to anyone other than the patient for history (EMS, parent, family, police, friend...)? What history was obtained from this source @ -No Did you review nursing and triage notes (agree or disagree)? Why? @ -I reviewed and agree with nursing and triage notes Were old charts reviewed (outside hosp., previous admission, EMS record, old EKG, old radiological studies, urgent care reports/EKG's, long term records)? Report findings @ -No old charts were reviewed Differential Diagnosis (chest pain, altered mental status, abdominal pain women, abdominal pain men, vaginal bleeding, weakness, fever, dyspnea, syncope, headache, dizziness, GI bleed, back pain, seizure, CVA, palpatations, mental health, musculoskeletal)? @ -not applicable EKG interpreted by me (3pts min.). @ EKG at 2003 is sinus bradycardia rate of 41, AL interval 241, QRS duration 157, QTC 344 Repeat EKG at 2008, sinus tachycardia rate of 131 ST segment depression in the lateral precordial with T-wave inversion. AL interval 148, QRS duration 96, QTC 359 X-rays interpreted by me (1pt min.). @ Chest x-ray showing endotracheal to 2.2 cm above the gopal CT interpreted by me (1pt min.). @ -CT brain showed diffuse edema, no intracranial hemorrhage, CT cervical spine negative for fracture or subluxation. CT chest showing multiple rib fractures, edema. No central PE. U/S interpreted by me (1pt. min.). @ -None done What testing was considered but not performed or refused? (CT, X-rays, U/S, labs)? Why? @ -None What meds were considered but not given or refused? Why? @ -None Did you discuss the management of the patient with other professionals (professionals i.e. , PA, BILL ADJUSTER, lab, RT, psych nurse, social service director, design consultant, teacher, custody officer, egg caser)? Give summary @ -No Was smoking cessation discussed for >3mins.? @ -No Was critical care preformed (if so, how long)? @ -[Yes, 35min Were there social determinants of health that impacted care today? How? (Homelessness, low income, unemployed, alcoholism, drug addiction, transportation, low edu. Level, literacy, decrease access to med. care, group home, rehab)? @ -No Was there de-escalation of care discussed even if they declined (Discuss DNR or withdrawal of care, Hospice)? DNR status @ -No What co-morbidities impacted this encounter? (DM, HTN, Smoking, COPD, CAD, Cancer, CVA, ARF, Chemo, Hep., AIDS, mental health diagnosis, sleep apnea, morbid obesity)? @ -Diabetes, asthma, hypertension Was patient admitted / discharged? Hospital course, mention meds given and route, prescriptions, significant lab abnormalities, going to OR and other pe rtinent info. @ -[42-year-old female with prolonged out of Hospital cardiac arrest. We were able to obtain return of spontaneous circulation in the emergency department. Please refer to the code sheet and records from nursing. Patient was intubated, central line was placed. She had been started on both norepinephrine and epinephrine in the emergency department which was able to be significantly reduced during her stay. She initially did not have any signs of life including no chest reflexes, pupils are fixed and dilated. She did have some spontaneous movement and therefore sedation was initiated. She had lab abnormalities consistent with prolonged cardiac arrest including high lactic acid, high potassium, metabolic acidosis. Further history from the family did indicate that the patient had complained of dyspnea after cleaning the cages that her pet rats resided. I suspect a asthma exacerbation with hypoxic respiratory arrest as the cause of the initial cardiopulmonary arrest. Given the CT brain findings he prognosis is quite poor. I discussed the case with Dr. Bonner and Dr. Haile. Patient didn't ICU. Undiagnosed new problem with uncertain prognosis? @ -No Drug Therapy requiring intensive monitoring for toxicity (Heparin, Nitro, Insulin, Cardizem)? @ -No Were any procedures done? @ -Yes, intubation, central line Diagnosis/symptom? @ -Out of Hospital cardiac arrest Acute, or Chronic, or Acute on Chronic? @ -[Acute Uncomplicated (without systemic symptoms) or Complicated (systemic symptoms)? @ -complicated Side effects of treatment? @ -No Exacerbation, Progression, or Severe Exacerbation? @ -No Poses a threat to life or bodily function? How? (Chest pain, [place], [place], pneumonia, PE, COPD, DKA, ARF, appy, cholecystitis, CVA, Diverticulitis, Homicidal, Suicidal, threat to staff... and all critical care pts) @ -Yes, cardiac arrest - Lab Data Result diagrams: 02/15/23 20:00 02/15/23 20:00 Lab Results 02/15/23 02/15/2323 Range/Units 19:55 20:00 20:00 WBC 8.0 (3.8-10.6) k/uL RBC 3.58 L (3.80-5.40) m/uL Hgb 10.1 L (11.4-16.0) gm/dL Hct 34.8 (34.0-46.0) % MCV 97.2 (80.0-100.0) fL MCH 28.2 (25.0-35.0) pg MCHC 28.9 L (31.0-37.0) g/dL RDW 15.1 (11.5-15.5) % Plt Count 320 (150-450) k/uL MPV 9.9 Neutrophils % 40 % Lymphocytes % 49 % Monocytes % 5 % Eosinophils % 2 % Basophils % 1 % Neutrophils # 3.2 (1.3-7.7) k/uL Lymphocytes # 3.9 (1.0-4.8) k/uL Monocytes # 0.4 (0-1.0) k/uL Eosinophils # 0.2 (0-0.7) k/uL Basophils # 0.1 (0-0.2) k/uL Hypochromasia Marked PT (10.0-12.5) sec INR (<1.2) VBG pH (7.31-7.41) VBG pCO2 (37-51) mmHg VBG HCO3 (24-28) mmol/L Sodium 135 L (137-145) mmol/L Potassium 6.6 H* (3.5-5.1) mmol/L Chloride 100 (98-107) mmol/L Carbon Dioxide 11 L (22-30) mmol/L Anion Gap 24 mmol/L BUN 12 (7-17) mg/dL Creatinine 1.06 H (0.52-1.04) mg/dL Est GFR (CKD-EPI)AfAm 75 (>60 ml/min/1.73 sqM) Est GFR (CKD-EPI)NonAf 65 (>60 ml/min/1.73 sqM) Glucose 549 H* (74-99) mg/dL POC Glucose (mg/dL) (70-110) mg/dL POC Glu Music Writer ID Plasma Lactic Acid Kb (0.7-2.0) mmol/L Calcium 9.8 (8.4-10.2) mg/dL Total Bilirubin 0.3 (0.2-1.3) mg/dL AST 56 H (14-36) U/L ALT 35 H (4-34) U/L Alkaline Phosphatase 57 (38-126) U/L Troponin I (0.000-0.034) ng/mL Total Protein 6.8 (6.3-8.2) g/dL Albumin 4.0 (3.5-5.0) g/dL Blood Type Blood Type Confirm A Positive Blood Type Recheck Bld Type Recheck Status Antibody Screen Spec Expiration Date 02/15/23 02/15/23 02/15/23 Range/Units 20:00 20:00 20:00 WBC (3.8-10.6) k/uL RBC (3.80-5.40) m/uL Hgb (11.4-16.0) gm/dL Hct (34.0-46.0) % MCV (80.0-100.0) fL MCH (25.0-35.0) pg MCHC (31.0-37.0) g/dL RDW (11.5-15.5) % Plt Count (150-450) k/uL MPV Neutrophils % % Lymphocytes % % Monocytes % % Eosinophils % % Basophils % % Neutrophils # (1.3-7.7) k/uL Lymphocytes # (1.0-4.8) k/uL Monocytes # (0-1.0) k/uL Eosinophils # (0-0.7) k/uL Basophils # (0-0.2) k/uL Hypochromasia PT 10.4 (10.0-12.5) sec INR 0.9 (<1.2) VBG pH (7.31-7.41) VBG pCO2 (37-51) mmHg VBG HCO3 (24-28) mmol/L Sodium (137-145) mmol/L Potassium (3.5-5.1) mmol/L Chloride (98-107) mmol/L Carbon Dioxide (22-30) mmol/L Anion Gap mmol/L BUN (7-17) mg/dL Creatinine (0.52-1.04) mg/dL Est GFR (CKD-EPI)AfAm (>60 ml/min/1.73 sqM) Est GFR (CKD-EPI)NonAf (>60 ml/min/1.73 sqM) Glucose (74-99) mg/dL POC Glucose (mg/dL) (70-110) mg/dL POC Glu Music Writer ID Plasma Lactic Acid Kb 13.7 H* (0.7-2.0) mmol/L Calcium (8.4-10.2) mg/dL Total Bilirubin (0.2-1.3) mg/dL AST (14-36) U/L ALT (4-34) U/L Alkaline Phosphatase (38-126) U/L Troponin I 0.043 H* (0.000-0.034) ng/mL Total Protein (6.3-8.2) g/dL Albumin (3.5-5.0) g/dL Blood Type Blood Type Confirm Blood Type Recheck Bld Type Recheck Status Antibody Screen Spec Expiration Date 02/15/23 02/15/23 02/15/23 Range/Units 20:00 20:00 20:09 WBC (3.8-10.6) k/uL RBC (3.80-5.40) m/uL Hgb (11.4-16.0) gm/dL Hct (34.0-46.0) % MCV (80.0-100.0) fL MCH (25.0-35.0) pg MCHC (31.0-37.0) g/dL RDW (11.5-15.5) % Plt Count (150-450) k/uL MPV Neutrophils % % Lymphocytes % % Monocytes % % Eosinophils % % Basophils % % Neutrophils # (1.3-7.7) k/uL Lymphocytes # (1.0-4.8) k/uL Monocytes # (0-1.0) k/uL Eosinophils # (0-0.7) k/uL Basophils # (0-0.2) k/uL Hypochromasia PT (10.0-12.5) sec INR (<1.2) VBG pH 6.83 L* (7.31-7.41) VBG pCO2 80 H* (37-51) mmHg VBG HCO3 13 L (24-28) mmol/L Sodium (137-145) mmol/L Potassium (3.5-5.1) mmol/L Chloride (98-107) mmol/L Carbon Dioxide (22-30) mmol/L Anion Gap mmol/L BUN (7-17) mg/dL Creatinine (0.52-1.04) mg/dL Est GFR (CKD-EPI)AfAm (>60 ml/min/1.73 sqM) Est GFR (CKD-EPI)NonAf (>60 ml/min/1.73 sqM) Glucose (74-99) mg/dL POC Glucose (mg/dL) 524 H (70-110) mg/dL POC Glu Music Writer Claudia Gresham Plasma Lactic Acid Kb (0.7-2.0) mmol/L Calcium (8.4-10.2) mg/dL Total Bilirubin (0.2-1.3) mg/dL AST (14-36) U/L ALT (4-34) U/L Alkaline Phosphatase (38-126) U/L Troponin I (0.000-0.034) ng/mL Total Protein (6.3-8.2) g/dL Albumin (3.5-5.0) g/dL Blood Type A Positive Blood Type Confirm Blood Type Recheck No Previous Record Bld Type Recheck Status CABO Indicated Antibody Screen NEGATIVE Spec Expiration Date 02/18/2023 - 2299 Disposition Clinical Impression: Cardiac arrest, Acute respiratory failure Disposition: ADMITTED IP TO THIS [facility] Condition: Poor Is patient prescribed a controlled substance at d/c from ED?: No Referrals: Brian Bonner MD [Primary Care Provider] - 1-2 days Time of Disposition: 22:27
[2023-02-15] MEDS: DEXTROSE 5% IN WATER 1,000 ML with SODIUM BICARB (1 MEQ/ML) 150 ML IV SCH (21:50)
--- NOTE | 2023-02-15 21:59 | CT ---
EXAMINATION TYPE: CT brain jayy oneil con DATE OF EXAM: 02/15/2023 COMPARISON: None HISTORY: 42-year-old female with pain after fall, unresponsive CT DLP: 1637.6 mGycm Automated exposure control for dose reduction was used. Technique: Examination of the head was done in axial plane without intravenous contrast. Coronal and sagittal reconstructions performed. CT of the cervical spine was obtained in axial plane without intravenous injection of contrast mater ial. Coronal and sagittal reformatted images were obtained from the axial views for evaluation of f ractures, spinal alignment and canal. FINDINGS: Head: Prominent mucosal thickening within the nasal cavities. Mild to moderate mucosal thickening ethmoid a ir cells. Orbits and globes are intact. There may be some underlying softball most. Clinically correl ate. Small amount of layering fluid in the sphenoid sinus. Mastoid air cells well pneumatized. Patien t intubated with NG tube. There is diffuse sulcal effacement and loss of acosta-white matter differentiation and narrowing of the lateral ventricles. There is a midline right frontal scalp contusion. No underlying calvarial fractu re. Crowding of the basal subarachnoid cisterns. No extra-axial fluid collection or acute intracranial hemorrhage is identified. No midline shift. Cervical spine: No craniocervical junction abnormality, predental space widening, or prevertebral soft tissue swellin g. No acute fracture of the cervical spine. Moderate disc/endplate degenerative change C6-C7. Disc osteophyte complex here likely contributes to moderate spinal canal stenosis. Detailed assessment of the spinal canal is very limited due to large body habitus. No acute fracture seen. Sagittal and coronal reformatted images confirm above findings. COMBINED IMPRESSION: 1. Findings of diffuse cerebral edema with loss of acosta-white matter differentiation and diffuse sulc al effacement with crowding of the basal cisterns. No midline shift or acute intracranial hemorrhage. Anterior midline frontal scalp contusion. Diffuse hypoxic injury is suggested. 2. No acute fracture or malalignment of the cervical spine. Critical findings called to Dr. Mary in the ER at 9:54 PM.
--- NOTE | 2023-02-15 22:04 | CT ---
EXAMINATION TYPE: CT angio chest DATE OF EXAM: 02/15/2023 COMPARISON: Radiograph earlier today HISTORY: 42-year-old female prolonged cardiac arrest, unresponsive TECHNIQUE: Contiguous axial scanning of the chest after the administration of 100 mL of Isovue 370. Coronal/sagittal MIP reconstructions performed. CT DLP: 584.3mGycm. Automatic exposure control utilized for a dose reduction. FINDINGS: ET and NG tube are present. Heart borderline enlarged without pericardial effusion. No flattening of the interventricular septum reflux of contrast into the hepatic veins. Aorta normal caliber with conventional branching anatomy. No obvious thoracic adenopathy. There is excessive motion limiting assessment for pulmonary embolus. No obvious pulmonary embolus is seen. Large areas of dependent and bandlike activity in the lungs most likely large areas of atelectasis. S ome additional septal lines are present suggesting developing interstitial pulmonary edema. Bones: Nondisplaced fractures of the right anterior and anterolateral third, fourth, and fifth ribs. Nondisplaced fractures of the left anterior fourth, fifth, and sixth ribs. IMPRESSION: 1. Motion limited exam. No obvious pulmonary embolus. 2. Large areas of dependent and bandlike atelectasis throughout the lungs and suspected early interst itial pulmonary edema. 3. Nondisplaced fractures of the right sided anterior third, fourth, and fifth ribs. Nondisplaced fra ctures of the left anterior fourth, fifth, and sixth ribs.
[2023-02-15] MEDS ORDERED: ACETAMINOPHEN SUPPOSITORY 650 MG SUPP RECTAL PRN (22:20)
[2023-02-15] MEDS ORDERED: NALOXONE 0.4 MG/ML 1 ML VIAL IV PRN (22:20)
[2023-02-16 00:30] LABS: Glucose,Whole Blood 523 mg/dL (70-110)
[2023-02-16] MEDS ORDERED: Magnesium Replacement Protocol 1 EACH MISC MISCELLANE PRN (00:43)
[2023-02-16] MEDS ORDERED: Potassium Replacement Protocol 1 EACH MISC MISCELLANE PRN (00:43)
[2023-02-16 01:03] LABS: ALT 65 U/L (4-34); AST 202 U/L (14-36); African American GFR (CKD) 64 (>60 ml/min/1.73 sqM); Albumin 3.7 g/dL (3.5-5.0); Alkaline Phosphatase 78 U/L (38-126); Anion Gap 9 mmol/L; Blood Urea Nitrogen 18 mg/dL (7-17); Calcium 8.8 mg/dL (8.4-10.2); Carbon Dioxide 25 mmol/L (22-30); Chloride 100 mmol/L (98-107); Magnesium 1.7 mg/dL (1.6-2.3); Non-African American GFR(CKD) 56 (>60 ml/min/1.73 sqM); Sodium 134 mmol/L (137-145); Total Bilirubin 0.3 mg/dL (0.2-1.3); Total Protein 6.7 g/dL (6.3-8.2)
[2023-02-16 01:08] LABS: Glucose 515 mg/dL (74-99)
[2023-02-16 01:11] LABS: Potassium 7.4 mmol/L (3.5-5.1)
[2023-02-16 01:11] LABS: Glucose 549 mg/dL (74-99)
[2023-02-16 01:16] LABS: ABG Base Excess -0.8 mmol/L; ABG HCO3 26 mmol/L (21-25); ABG PCO2 59 mmHg (35-45); ABG PH 7.26 (7.35-7.45); ABG PO2 350 mmHg (83-108); ABG TCO2 28 mmol/L (19-24); Allen Test Performed? Yes
[2023-02-16] MEDS ORDERED: CALCIUM GLUCONATE IN NACL 1 GM in SALINE 1 100ML.BAG IVPB ONE ×2 (01:22→06:13)
[2023-02-16] MEDS ORDERED: INSULIN REGULAR 100 UNIT/ML VIAL (IV) IV ONE ×2 (01:22→06:13)
[2023-02-16] MEDS: IPRATROPIUM-ALBUTEROL 3 ML NEB INHALATION SCH ×6 (01:28→20:19)
[2023-02-16] MEDS ORDERED: DEXTROSE 50% SYRINGE 50 ML IVP STA (01:52)
[2023-02-16] MEDS: methylPREDNISolone SOD SUCCI 125 MG/2 ML VIAL IV SCH ×3 (01:58→18:17)
[2023-02-16] MEDS: INSULIN ASPART (NovoLOG) 100 UNIT/ML VIAL SQ SCH ×6 (01:58→20:39)
[2023-02-16 02:18] LABS: Basophils % (A) 0 %; Eosinophils # (A) 0.1 k/uL (0-0.7); Eosinophils % (A) 1 %; HCT 31.7 % (34.0-46.0); Hypochromasia Moderate; Lymphocytes # (A) 0.6 k/uL (1.0-4.8); Lymphocytes % (A) 6 %; MCHC 31.5 g/dL (31.0-37.0); Mean Platelet Volume 8.8; Monocytes # (A) 0.3 k/uL (0-1.0); Monocytes % (A) 3 %; Neutrophils # (A) 8.4 k/uL (1.3-7.7); Neutrophils % (A) 89 %; Platelet Count 290 k/uL (150-450); RBC 3.57 m/uL (3.80-5.40); RDW 15.2 % (11.5-15.5); WBC 9.5 k/uL (3.8-10.6)
[2023-02-16 02:26] LABS: MCV 88.9 fL (80.0-100.0)
[2023-02-16 03:02] LABS: Glucose,Whole Blood 513 mg/dL (70-110)
[2023-02-16 05:01] LABS: Glucose,Whole Blood 432 mg/dL (70-110)
[2023-02-16 05:11] LABS: HCT 29.4 % (34.0-46.0); HGB 9.5 gm/dL (11.4-16.0); Hypochromasia Moderate; MCH 28.6 pg (25.0-35.0); MCHC 32.5 g/dL (31.0-37.0); MCV 88.1 fL (80.0-100.0); Mean Platelet Volume 8.7; Platelet Count 239 k/uL (150-450); RBC 3.33 m/uL (3.80-5.40); RDW 15.3 % (11.5-15.5); WBC 8.1 k/uL (3.8-10.6)
[2023-02-16 05:27] LABS: ALT 61 U/L (4-34); AST 147 U/L (14-36); African American GFR (CKD) 56 (>60 ml/min/1.73 sqM); Albumin 3.5 g/dL (3.5-5.0); Alkaline Phosphatase 64 U/L (38-126); Anion Gap 10 mmol/L; Blood Urea Nitrogen 21 mg/dL (7-17); Calcium 8.7 mg/dL (8.4-10.2); Carbon Dioxide 26 mmol/L (22-30); Chloride 102 mmol/L (98-107); Glucose 410 mg/dL (74-99); Non-African American GFR(CKD) 49 (>60 ml/min/1.73 sqM); Sodium 138 mmol/L (137-145); Total Bilirubin 0.2 mg/dL (0.2-1.3); Total Protein 6.3 g/dL (6.3-8.2)
[2023-02-16 05:38] LABS: ABG Base Excess 1.8 mmol/L; ABG HCO3 29 mmol/L (21-25); ABG Oxygen Saturation 99.2 % (94-97); ABG PCO2 63 mmHg (35-45); ABG PH 7.27 (7.35-7.45); ABG PO2 130 mmHg (83-108); ABG TCO2 31 mmol/L (19-24); Allen Test Performed? Yes
[2023-02-16 05:45] LABS: Potassium 6.4 mmol/L (3.5-5.1)
--- NOTE | 2023-02-16 07:24 | XR ---
EXAMINATION TYPE: XR chest 1V DATE OF EXAM: 02/16/2023 5:41 AM CLINICAL INDICATION:Female, 42 years old with history of Tube Placement; [facility] COMPARISON: Chest radiographs from TECHNIQUE: XR chest 1V Frontal view of the chest. FINDINGS: Lungs/Pleura: Low lung volumes are present. There is no evidence of pleural effusion, focal consolida tion, or pneumothorax. Pulmonary vascularity: Unremarkable. Heart/mediastinum: Cardiomediastinal silhouette is unremarkable. Musculoskeletal: No acute osseous pathology. Other findings: None Lines/Tubes: Endotracheal tube with distal tip 3.6 cm above the gopal. Nasogastric tube with its distal tip and side-port projecting under the diaphragm. IMPRESSION: * Support tubes in appropriate position. * Low lung volumes with a generalized hazy appearance which could represent atelectasis versus pulmo nary edema.
[2023-02-16] MEDS ORDERED: SODIUM CHLORIDE 0.9% IV ONE (08:04)
[2023-02-16] MEDS ORDERED: NOREPINEPHRINE IV ONE (08:04)
[2023-02-16] MEDS: CHLORHEXIDINE GLUCONATE 15 ML CUP MUCOUS MEM SCH ×2 (08:26→20:38)
[2023-02-16] MEDS ORDERED: NOREPINEPHRINE 4 MG in SODIUM CHLORIDE 0.9% 250 ML IV ONE (08:30)
[2023-02-16] MEDS: DEXTROSE 5% IN WATER 1,000 ML with SODIUM BICARB (1 MEQ/ML) 150 ML IV SCH ×2 (08:33→23:28)
[2023-02-16 10:00] LABS: Glucose,Whole Blood 144 mg/dL (70-110)
--- NOTE | 2023-02-16 11:27 | P.CNPUL ---
History of Present Illness Consult date: 02/16/23 Chief complaint: cardiac arrest History of present illness: I'm seeing this 42-year-old female patient in intensive care unit. The patient is currently intubated on a mechanical ventilator post cardiac arrest. She is an obese 42-year-old female patient with known history of diabetes mellitus, hypertension and hyperlipidemia and bronchial asthma. She is a chronic smoker. The patient was leaving a store yesterday and she was found unresponsive on the floor. This was witnessed by bystanders. Apparently she has been complaining of some shortness of breath prior to that. Following her collapse, the patient is thought to have a had trauma also. Immediately, EMS services were activated and the patient started on CPR by EMS and she was intubated on the scene. The initial cardiac rhythm was PEA cardiac arrest. No shocks were delivered. The patient was down for approximately 40 minutes and she arrived to the hospital while receiving CPR and she was was also receiving bag ventilation. ET tube was placed in the emergency department. The patient's intravenous or resuscitation in emergency. Based on our records, the suspicion was started 7:55 PM and ended at 8:29 PM. The rhythm was consistently PEA. There was recovery of some rhythm in between and this occurred at 7:58 PM and 8:06 PM and ultimately there was a sustained sinus rhythm at 8:29 PM. The patient had a CAT scan of the brain that showed diffuse cerebral edema without any midline shifts and this was attributed to acute-systemic state. No evidence of any cervical spine fracture. Initial EKG showed a sinus tachycardia without any significant ST segment elevation. There was some at segment depression involving the lateral leads.. The initial lactic acid level was at 13.7 and subsequently dropped down to 2.0. Cardiac enzymes were not elevated and the troponin initially was at 0.04. CT antigram of the chest was done and it showed some mild interstitial edema. No evidence of any pulmonary embolism. There was evidence of fractured nondisplaced right-sided third fourth and fifth ribs and left fourth and fifth and sixth ribs and this was attributed to CPR. The white cell count was at 8 with a hemoglobin of 10.1 and a platelet count of 320. The patient had a potassium level of 6.6 which came up to 7.4 and then drop down to 6.4 and within the process of treating her hyperkalemia the patient received calcium, bicarb and D50 with insulin. She sustained an acute kidney injury and the creatinine is on the rise with a baseline creatinine of 1.06 and the current creatinine is at 1.34. Blood sugars are elevated and is currently down to 144 and the patient is unassigned scale insulin coverage. At this point in time, the patient is on propofol which is running at 10 mcg/kg/m. This will be discontinued. The patient is completely comatose and unresponsive to deep painful stimulation. She has fixed dilated pupils bilaterally. No nystagmus. No cough reflex. No gag reflex. No breathing reflex. Reflexes are not elicited in all 4 extremities and Babinski is equivocal. Her current temperature is at 98.8. Review of Systems ROS unobtainable: due to endotracheal tube, due to mental status Past Medical History Past Medical History: Asthma, Diabetes Mellitus, Hyperlipidemia, Hypertension Additional Past Medical History / Comment(s): BRONCHITIS, SINUSITIS History of Any Multi-Drug Resistant Organisms: None Reported Additional Past Surgical History / Comment(s): nose surgery-POLYPS REMOVED Past Anesthesia/Blood Transfusion Reactions: No Reported Reaction Past Psychological History: ADD/ADHD, Anxiety, Depression Additional Psychological History / Comment(s): RECENTLY STARTED ON DEPRESSION MEDS BUT STATED THEY MADE HER FEEL SICK SO SHE STOPPED TAKING THEM Smoking Status: Former smoker Past Alcohol Use History: None Reported Additional Past Alcohol Use History / Comment(s): STARTED SMOKING AT AGE 13 MADE SEVERAL ATTEMPTS TO QUIT SMOKES 1PPD Past Drug Use History: None Reported - Past Family History Father History Unknown: Yes Mother Family Medical History: Congestive Heart Failure (CHF), Diabetes Mellitus, Hyperlipidemia, Hypertension Medications and Allergies Home Medications Medication Instructions Recorded Confirmed Type Glimepiride [Amaryl] 4 mg PO BID 07/30/13 10/13/21 History Albuterol Nebulized [Ventolin 2.5 mg INHALATION RT-Q6H PRN 09/11/14 10/13/21 History Nebulized] gemfibroziL [Lopid] 600 mg PO AC-BID #60 tablet 05/02/19 10/13/21 Rx hydroCHLOROthiazide 12.5 mg PO DAILY #30 capsule 05/02/19 10/13/21 Rx metFORMIN HCL [Glucophage] 1,000 mg PO BID #60 tab 05/02/19 10/13/21 Rx Cetirizine HCl 10 mg PO DAILY 06/30/21 10/13/21 History EPINEPHrine (Auto Inject) [Epipen] 0.3 mg IM ONCE PRN 06/30/21 10/13/21 History Fluticasone Propion/Salmeterol 1 puff INHALATION RT-BID 06/30/21 10/13/21 History [Advair Hfa 45-21 Mcg Inhaler] Levothyroxine Sodium [Synthroid] 75 mcg PO DAILY 06/30/21 10/13/21 History Magnesium Oxide [Tolentino] 500 mg PO DAILY 06/30/21 10/13/21 History Pantoprazole [Protonix] 40 mg PO DAILY 06/30/21 10/13/21 History lisinopriL [Prinivil] 10 mg PO DAILY 06/30/21 10/13/21 History Albuterol Sulfate [Proair Hfa] 2 puff INHALATION RT-Q6H PRN 08/31/21 10/13/21 History Losartan Potassium [Cozaar] 25 mg PO DIRECTED 08/31/21 10/13/21 History Venlafaxine HCl ER [Effexor XR] 75 mg PO DAILY 08/31/21 10/13/21 History Allergies Allergy/AdvReac Type Severity Reaction Status Date / Time cinnamon Allergy Anaphylaxis Verified 02/15/23 20:15 egg Allergy Unknown Verified 02/15/23 20:15 milk AdvReac Cough Verified 02/15/23 20:15 ropinirole [From Requip] AdvReac Shaking Verified 02/15/23 20:15 Physical Exam Vitals: Vital Signs Temp Pulse Resp BP Pulse Ox FiO2 02/16/23 11:00 112 H 20 97/65 98 02/16/23 10:45 112 H 20 99/64 98 02/16/23 10:30 113 H 20 98 02/16/23 10:15 113 H 20 106/62 99 02/16/23 10:00 113 H 20 102/61 99 02/16/23 09:45 113 H 20 93/60 100 02/16/23 09:30 113 H 20 90/59 100 02/16/23 09:15 113 H 20 88/56 99 02/16/23 09:00 113 H 20 93/51 99 02/16/23 08:45 114 H 20 78/51 99 02/16/23 08:30 115 H 20 86/50 97 02/16/23 08:20 114 H 02/16/23 08:15 112 H 20 89/47 97 02/16/23 08:06 112 H 02/16/23 08:03 50 02/16/23 08:00 98.8 F 112 H 20 80/48 98 50 02/16/23 07:45 112 H 20 81/53 98 02/16/23 07:30 113 H 20 81/52 98 02/16/23 07:15 113 H 20 81/52 99 02/16/23 07:00 113 H 91/55 99 02/16/23 06:45 112 H 91/55 99 02/16/23 06:30 111 H 94/56 98 02/16/23 06:15 111 H 89/55 99 02/16/23 06:00 111 H 87/53 98 02/16/23 05:45 110 H 94/48 99 02/16/23 05:30 109 H 86/64 99 02/16/23 05:15 110 H 102/56 99 02/16/23 05:02 50 02/16/23 05:00 110 H 20 80/57 99 02/16/23 04:45 108 H 20 84/54 98 02/16/23 04:30 108 H 20 88/58 99 02/16/23 04:15 107 H 20 93/58 99 02/16/23 04:07 106 H 02/16/23 04:00 97.9 F 105 H 20 98/58 99 60 02/16/23 03:53 105 H 02/16/23 03:50 60 02/16/23 03:45 106 H 20 96/65 100 02/16/23 03:30 107 H 20 104/66 99 02/16/23 03:15 107 H 20 105/64 99 02/16/23 03:00 107 H 20 110/63 99 02/16/23 02:45 105 H 20 107/63 100 02/16/23 02:30 104 H 20 101/59 99 60 02/16/23 02:15 100 20 112/66 99 02/16/23 02:00 96 20 113/70 98 02/16/23 01:45 95 20 103/67 98 02/16/23 01:30 93 20 123/66 98 02/16/23 01:20 60 02/16/23 01:15 92 20 125/67 100 02/16/23 01:08 100 02/16/23 01:00 92 20 114/75 100 02/16/23 00:45 20 117/67 100 02/16/23 00:30 93.9 F L 93 20 124/84 100 100 02/16/23 00:19 94 20 100 02/15/23 23:45 93 20 125/86 99 02/15/23 21:10 92 20 156/86 100 02/15/23 21:07 91 02/15/23 21:05 88 20 133/84 100 02/15/23 21:00 84 20 111/60 100 02/15/23 20:55 80 20 99/61 100 02/15/23 20:50 78 20 86/51 100 02/15/23 20:45 77 20 80/45 100 02/15/23 20:36 78 20 72/48 100 02/15/23 20:29 98 20 108/57 100 02/15/23 20:27 99 20 108/94 100 02/15/23 20:24 48 L 20 84/50 100 02/15/23 20:20 109 H 02/15/23 20:19 100 02/15/23 20:18 70 20 130/108 100 02/15/23 20:16 118 H 20 56/30 100 02/15/23 20:11 84 20 60/36 100 02/15/23 20:06 94 20 76/39 100 02/15/23 20:05 48 L 20 90/50 100 100 02/15/23 19:58 98 20 98/52 100 02/15/23 19:55 96.3 F L 20 L 24 143/88 100 Intake and Output 02/15/23 02/16/23 02/16/23 22:59 06:59 14:59 Intake Total 37.944 979.297 464.791 Output Total 700 280 Balance 37.944 279.297 184.791 Intake: IV 900 406 Calcium Gluconate in NaCl 200 1 gm In Saline 1 100ml. bag @ 100 mls/hr IVPB ONCE ONE Rx#:[id number] Dextrose 5% in Water 1, 700 400 000 ml @ 100 mls/hr IV . [id number] PRADIP with Sodium Bicarb (1 Meq/ml) 150 ml Rx#:[id number] Pressure Bag 6 Intake, IV Titration 37.944 79.297 58.791 Amount Norepinephrine 4 mg In 12.922 Sodium Chloride 0.9% 250 ml @ 0.03 MCG/KG/MIN 10. 069 mls/hr IV .Q24H ONE Rx#:[id number] Norepinephrine 8 mg In 37.407 Sodium Chloride 0.9% 250 ml @ 0.03 MCG/KG/MIN 5. 195 mls/hr IV .Q24H ONE Rx#:[id number] propofoL 1,000 mg In 0.537 79.297 45.869 Empty Bag 1 bag @ 15 MCG/ KG/MIN 8.055 mls/hr IV . [id number] [facility] Rx#:[id number] Output: Urine 700 280 Other: Voiding Method Indwelling Catheter Weight 89.5 kg 95.1 kg Gen. appearance, calm and comfortable, currently on 10 g of propofol, completely comatose and unresponsive Head exam was generally normal. There was no scleral icterus or corneal arcus. Mucous membranes were moist. Neck was supple and without jugular venous distension, thyromegaly, or carotid bruits. Carotids were easily palpable bilaterally. There was no adenopathy. Lungs sounds are diminished bilaterally otherwise clear and breath sounds are equal and symmetrical bilaterally Cardiac exam revealed the PMI to be normally situated and sized. The rhythm was regular and no extrasystoles were noted during several minutes of auscultation. The first and second heart sounds were normal and physiologic splitting of the second heart sound was noted. There were no murmurs, rubs, clicks, or gallops. Abdominal exam revealed normal bowel sounds. The abdomen was soft, non-tender, and without masses, organomegaly, or appreciable enlargement of the abdominal aorta. Examination of the extremities revealed easily palpable radial, femoral and pedal pulses. There was no cyanosis, clubbing or edema. Examination of the skin revealed no evidence of significant rashes, suspicious appearing nevi or other concerning lesions. Neurologically, the patient is completely comatose, unresponsive, pupils are fixed dilated, no nystagmus, no clonus, no facial asymmetry, no cough, no gag, no breathing reflex. The patient is not withdrawing to painful stimulation. Reflexes are Lasix and the patient has adequate vocal Babinski. No clonus. Results - Laboratory Findings CBC and BMP: 02/16/23 04:24 02/16/23 04:24 ABG ABG pH 7.27 (7.35-7.45) L 02/16/23 05:35 ABG pCO2 63 mmHg (35-45) H 02/16/23 05:35 ABG pO2 130 mmHg (83-108) H 02/16/23 05:35 ABG O2 Saturation 99.2 % (94-97) H 02/16/23 05:35 PT/INR, D-dimer PT 10.4 sec (10.0-12.5) 02/15/23 20:00 INR 0.9 (<1.2) 02/15/23 20:00 Abnormal lab findings: Abnormal Labs 02/15/23 02/15/23 02/15/23 20:00 20:00 20:00 RBC 3.58 L Hgb 10.1 L Hct MCHC 28.9 L Neutrophils # Lymphocytes # ABG pH ABG pCO2 ABG pO2 ABG HCO3 ABG Total CO2 ABG O2 Saturation VBG pH VBG pCO2 VBG HCO3 Sodium 135 L Potassium 6.6 H* Carbon Dioxide 11 L BUN Creatinine 1.06 H Glucose 549 H* POC Glucose (mg/dL) Plasma Lactic Acid Kb 13.7 H* AST 56 H ALT 35 H Troponin I 02/15/23 02/15/23 02/15/23 20:00 20:00 20:09 RBC Hgb Hct MCHC Neutrophils # Lymphocytes # ABG pH ABG pCO2 ABG pO2 ABG HCO3 ABG Total CO2 ABG O2 Saturation VBG pH 6.83 L* VBG pCO2 80 H* VBG HCO3 13 L Sodium Potassium Carbon Dioxide BUN Creatinine Glucose POC Glucose (mg/dL) 524 H Plasma Lactic Acid Kb AST ALT Troponin I 0.043 H* 02/16/23 02/16/23 02/16/23 00:28 00:35 00:35 RBC 3.57 L Hgb 10.0 L Hct 31.7 L MCHC Neutrophils # 8.4 H Lymphocytes # 0.6 L ABG pH ABG pCO2 ABG pO2 ABG HCO3 ABG Total CO2 ABG O2 Saturation VBG pH VBG pCO2 VBG HCO3 Sodium 134 L Potassium 7.4 H* Carbon Dioxide BUN 18 H Creatinine 1.20 H Glucose 515 H* POC Glucose (mg/dL) 523 H Plasma Lactic Acid Kb AST 202 H ALT 65 H Troponin I 02/16/23 02/16/23 02/16/23 01:14 03:01 04:24 RBC 3.33 L Hgb 9.5 L Hct 29.4 L MCHC Neutrophils # Lymphocytes # ABG pH 7.26 L ABG pCO2 59 H ABG pO2 350 H ABG HCO3 26 H ABG Total CO2 28 H ABG O2 Saturation 100.0 H VBG pH VBG pCO2 VBG HCO3 Sodium Potassium Carbon Dioxide BUN Creatinine Glucose POC Glucose (mg/dL) 513 H Plasma Lactic Acid Kb AST ALT Troponin I 02/16/23 02/16/23 02/16/23 04:24 04:59 05:35 RBC Hgb Hct MCHC Neutrophils # Lymphocytes # ABG pH 7.27 L ABG pCO2 63 H ABG pO2 130 H ABG HCO3 29 H ABG Total CO2 31 H ABG O2 Saturation 99.2 H VBG pH VBG pCO2 VBG HCO3 Sodium Potassium 6.4 H* Carbon Dioxide BUN 21 H Creatinine 1.34 H Glucose 410 H POC Glucose (mg/dL) 432 H Plasma Lactic Acid Kb AST 147 H ALT 61 H Troponin I 02/16/23 09:58 RBC Hgb Hct MCHC Neutrophils # Lymphocytes # ABG pH ABG pCO2 ABG pO2 ABG HCO3 ABG Total CO2 ABG O2 Saturation VBG pH VBG pCO2 VBG HCO3 Sodium Potassium Carbon Dioxide BUN Creatinine Glucose POC Glucose (mg/dL) 144 H Plasma Lactic Acid Kb AST ALT Troponin I - Diagnostic Findings Chest x-ray: image reviewed CT scan - chest: image reviewed Assessment and Plan Plan: Acute cardiac arrest, witnessed, with a prolonged down time. The patient had 40 minutes of resuscitation on the field and the patient was intubated and resusc itation was further continued in the emergency department for another 30 minutes. The patient did not receive any defibrillation. Cardiac rhythm was PEA. Exact cause is not clear. Comatose state secondary to cardiac arrest Acute brain swelling/edema secondary to hypoxemia/cardiac arrest Acute kidney injury secondary to above Acute hyperkalemia secondary to above Acute hypoxic/hypercapnic yesterday failure, secondary to above, and a CT angiogram showing some mild interstitial edema and a similar findings also seen on the chest x-ray. Chronic bronchial asthma Smoker Diabetes mellitus type 2 with hyperglycemic condition at time of admission, currently on insulin size. Coverage with an adequate blood sugar control Hypertension, history of Hyperlipidemia, history of Chronic anxiety/depression/ADD The fractures bilaterally secondary to CPR, third fourth and fifth ribs nondisplaced fractures laterally Acute lactic acidosis, improving Acute metabolic acidosis, improving Plan Continue ventilator support. Drop down to 5. Change the flow to 60. Keep the rest of the settings unchanged Repeat another gases at noontime Continue the bicarb infusion Repeat another set of electrolytes including potassium level especially following the treatment for acute hyperkalemia Stop propofol and monitor mental status very closely Repeat CAT scan of the brain Doppler of the carotids EEG Echocardiogram Serial troponins Cardiology consultation Neurology consultation Ultrasound of the kidneys Sliding scale insulin coverage Triple-lumen catheter has been established in the femoral on the left I did a temperature and did not allow any hyperthermia, try to maintain a temperature between 35 and 36C of possible. Condition is obviously critical and prognosis poor based above-mentioned comorbidities. We'll continue to follow. The care evaluation that was done in more than 40 minutes. Time with Patient: Greater than 30
[2023-02-16] MEDS: PANTOPRAZOLE 40 MG/10 ML VIAL IVP SCH ×2 (12:33→20:38)
[2023-02-16] MEDS: HEPARIN SODIUM,PORCINE 5,000 UNIT/ML 1 ML VIAL SQ SCH ×2 (12:33→20:38)
[2023-02-16 13:25] LABS: Glucose,Whole Blood 225 mg/dL (70-110)
--- NOTE | 2023-02-16 13:45 | US ---
EXAMINATION TYPE: US carotid duplex BILAT DATE OF EXAM: 02/16/2023 Exam done portable in ICU COMPARISON: NONE CLINICAL INDICATION: Female, 42 years old with history of Cardiac Arrest; TECHNIQUE: Carotid duplex ultrasound examination. Indirect Doppler criteria was utilized. FINDINGS: EXAM MEASUREMENTS: RIGHT: Peak Systolic Velocity (PSV) cm/sec ----- Right CCA: 66.9 ----- Right ICA: 69.8 ----- Right ECA: 210.7 ICA/CCA ratio: 1.0 RIGHT: End Diastole cm/sec ----- Right CCA: 0.0 ----- Right ICA: 0.0 ----- Right ECA: 15.6 LEFT: Peak Systolic Velocity (PSV) cm/sec ----- Left CCA: 94.3 ----- Left ICA: 21.8 ----- Left ECA: 133.5 ICA/CCA ratio: 0.2 LEFT: End Diastole cm/sec ----- Left CCA: 0.0 ----- Left ICA: 0.5 ----- Left ECA: 5.9 VERTEBRALS (direction of flow): Right Vertebral: Antegrade Left Vertebral: Antegrade Rhythm: Normal Unable to obtain mid and distal left ICA velocities due to patient position and vessel depth IMPRESSION: Less than 50% stenosis of bilateral carotid bifurcations. Criteria for Assigning % of Stenosis / Diameter reduction (Estimation based on the indirect measurements of the internal carotid artery velocities (ICA PSV). 1. Normal (no stenosis)=ICA PSV < 125 cm/s: ratio < 2.0: ICA EDV<40 cm/s. 2. Less than 50% stenosis=ICA PSV < 125 cm/s: ratio < 2.0: ICA EDV<40 cm/s. 3. 50 to 69% stenosis=ICA PSV of 125 to 230 cm/s: ration 2.0 ? 4.0: ICA EDV 40-100 cm/s. 4. Greater than 70% stenosis to near occlusion= ICA PSV > 230 cm/s: ratio > 4.0: ICA EDV > 100 cm/s. 5. Near occlusion= ICA PSV velocities may be low or undetectable: variable ratio and ICA EDV. 6. Total occlusion=unable to detect flow.
--- NOTE | 2023-02-16 13:53 | US ---
EXAMINATION TYPE: US kidneys/renal and bladder DATE OF EXAM: 02/16/2023 Exam done portable in ICU COMPARISON: CT 2016, US 2010 CLINICAL INDICATION: Female, 42 years old with history of SKYLAR; EXAM MEASUREMENTS: Right Kidney: 11.0 x 4.7 x 4.5 cm Left Kidney: 10.5 x 5.4 x 5.5 cm Right Kidney: No hydronephrosis or masses seen Left Kidney: No hydronephrosis or masses seen Bladder: not visualized, vargas catheter There is no evidence for hydronephrosis at this point in time. No nephrolithiasis is seen. No logan s are identified. The urinary bladder is anechoic. Bilateral ureteral jets are seen. IMPRESSION: No evidence for obstructive uropathy.
--- NOTE | 2023-02-16 16:22 | CT ---
EXAMINATION TYPE: CT brain wok con DATE OF EXAM: 02/16/2023 COMPARISON: 03/18/2022 HISTORY: Unresponsive CT DLP: 1120.4 mGycm. Automated Exposure Control for Dose Reduction was Utilized. TECHNIQUE: CT scan of the head is performed without contrast. FINDINGS The ventricles are diminutive in size. There is marked diffuse effacement of the sulci over the conve xities. There is marked loss of the acosta-white matter differentiation. These findings are unchanged c ompared to the prior study and are consistent with diffuse brain edema. There is no acute intra or extra-axial hemorrhage. There is no mass effect or shift of midline structures. Intraorbital contents appear normal and symmetric There is an air-fluid level in the sphenoid sinus consistent with acute sinusitis. The mastoid air ce lls are well aerated. IMPRESSION: 1. No change in the markedly abnormal findings most consistent with a acute diffuse brain edema. 2. Acute inflammatory changes like sinusitis. 3. No acute bleed or shift of midline structures.
[2023-02-16] MEDS ORDERED: ACETAMINOPHEN IV (For NPO) 1,000 MG in EMPTY BAG 1 BAG IVPB PRN (17:25)
[2023-02-16 18:15] LABS: Glucose,Whole Blood 126 mg/dL (70-110)
--- NOTE | 2023-02-16 19:21 | P.PCN ---
Date of Procedure: 02/16/23 Preoperative Diagnosis: Cardiac arrest Postoperative Diagnosis: Cardiac arrest Procedure(s) Performed: Arterial line Anesthesia: local Surgeon: Sophie Kaplan Estimated Blood Loss (ml): 0 Pathology: none sent Condition: critical Disposition: ICU Operative Findings: Indication: Hemodynamic monitoring. A time-out was completed verifying correct patient, procedure, site, positioning, and implant(s) or special equipment if applicable. Allens test was performed to ensure adequate perfusion. The patients left wrist was prepped and draped in sterile fashion. 1% Lidocaine was used to anesthetize the area. An 18G Arrow arterial line was introduced into the left radial artery. The catheter was threaded over the guide wire and the needle was removed with appropriate pulsatile blood return. Blood loss was minimal. The catheter was then sutured in place to the skin and a sterile dressing applied. Perfusion to the extremity distal to the point of catheter insertion was checked and found to be adequate. The patient tolerated the procedure well and there were no complications.
[2023-02-16 20:37] LABS: Glucose,Whole Blood 152 mg/dL (70-110)
[2023-02-17 00:06] LABS: Glucose,Whole Blood 205 mg/dL (70-110)
[2023-02-17] MEDS: INSULIN ASPART (NovoLOG) 100 UNIT/ML VIAL SQ SCH ×2 (00:22→04:16)
[2023-02-17] MEDS: methylPREDNISolone SOD SUCCI 125 MG/2 ML VIAL IV SCH (00:22)
--- NOTE | 2023-02-17 01:10 | HP ---
HISTORY AND PHYSICAL CHIEF COMPLAINT: Cardiorespiratory arrest. HISTORY OF PRESENT ILLNESS: Apparently, this 42-year-old lady passed out at home. Stories are somewhat variable, but it was reported that she went shopping and came home and then passed out. It is not sure if this was witnessed, but may have been. Another story was that she was cleaning some of her rat cages and became acutely short of breath and passed out. She was resuscitated and brought to the emergency room after about 45 minutes of effort to restore her heart rate and rhythm, which was done. She was transferred down to ICU. At this time, pupils are fixed and dilated. REVIEW OF SYSTEMS: Unobtainable. Past medical history, family history, and personal and social histories are unremarkable. She does have a history of asthma, hypothyroidism, hypertension, and GERD. She was in the office last in August. She at that time was on gemfibrozil, hydrochlorothiazide, cetirizine, pantoprazole, venlafaxine, albuterol, magnesium oxide, metformin, glimepiride, levothyroxine, Advair, and albuterol. The remainder of her history is unremarkable. She is a current smoker. PHYSICAL EXAMINATION: VITAL SIGNS: Blood pressure is 56/30. HEART: She is in sinus rhythm. She is on a ventilator. HEAD, EARS, EYES, AND NOSE: Normal. LUNGS: Breath sounds are heard bilaterally. CARDIAC: Sinus. ABDOMEN: Soft and there are no masses. EXTREMITIES: Normal. IMPRESSION: 1. Cardiorespiratory arrest. 2. Likely cerebral anoxia. 3. Type 2 insulin-dependent diabetes mellitus. 4. Nicotine abuse. 5. History of hypertension. 6. Hypotension. 7. Acute kidney injury. PLAN: She will be treated in the intensive care unit and be followed by Intensive Medicine, and Neurology. MMODL / IJN: [id number] /
--- NOTE | 2023-02-17 02:04 | EEG ---
ELECTROENCEPHALOGRAM REPORT PREAMBLE: This is a 42-year-old female with cardiac arrest, with downtime of about 40 minutes. This EEG performed to evaluate for any epileptiform activity, rule out anoxic encephalopathy. Currently, the patient not on any sedation. EEG FINDINGS: This is a 21-channel portable digital EEG recorded with video component, utilizing 10/20 international system with referential and bipolar montages. The recording starts and continues with presence of severely suppressed, almost isoelectric appearing EEG seen diffusely in bihemispheric region. Different stages of sleep were not seen. Photic stimulation or hyperventilation were not done. Eye opening or closing were not performed. No focal or generalized epileptiform activity was seen. IMPRESSION: This is an abnormal EEG, due to severe background suppression, almost isoelectric appearing EEG. This can be seen with severe anoxic encephalopathy. Clinical correlation is strongly recommended. No epileptiform activity was seen. ENEDELIA / LUIS ALFREDO: [id number] /
--- NOTE | 2023-02-17 02:28 | PN ---
PROGRESS NOTE DATE OF SERVICE: 02/16/2023 CHIEF COMPLAINT: Syncope, cardiac arrest, and anoxic brain injury. HISTORY OF PRESENT ILLNESS: This lady remains on the ventilator. Pupils are fixed and dilated. It was reported that she sustained a skull fracture from her fall, but there is no hematoma. PHYSICAL EXAMINATION: VITAL SIGNS: Blood pressure is 56/30. SKIN: Hydration is adequate. LUNGS: Breath sounds are heard bilaterally. CARDIAC: Normal. ABDOMEN: Soft. EXTREMITIES: Normal. LABORATORY DATA: Laboratory studies are being repeated. IMPRESSION: 1. Status post cardiorespiratory arrest. 2. Anoxic brain injury. 3. Hypotension. 4. Skull fracture. PLAN: Continue with supportive care and next of kin are being contacted. MMODL / IJN: [id number] /
[2023-02-17 02:33] LABS: ABG Base Excess 4.8 mmol/L; ABG HCO3 32 mmol/L (21-25); ABG Oxygen Saturation 92.4 % (94-97); ABG PCO2 66 mmHg (35-45); ABG PH 7.29 (7.35-7.45); ABG PO2 70 mmHg (83-108); ABG TCO2 34 mmol/L (19-24); Allen Test Performed? Yes
[2023-02-17] MEDS ORDERED: VASOPRESSIN 60 UNIT in SODIUM CHLORIDE 0.9% 150 ML IV SCH (03:00)
[2023-02-17] MEDS ORDERED: NOREPINEPHRINE 32 MG in SODIUM CHLORIDE 0.9% 218 ML IV SCH (03:15)
[2023-02-17 03:22] VITALS: BP 94/50
[2023-02-17 03:40] LABS: HCT 28.7 % (34.0-46.0); HGB 9.1 gm/dL (11.4-16.0); Hypochromasia Slight; MCH 27.8 pg (25.0-35.0); MCHC 31.8 g/dL (31.0-37.0); MCV 87.3 fL (80.0-100.0); Mean Platelet Volume 10.4; Platelet Count 241 k/uL (150-450); RBC 3.29 m/uL (3.80-5.40); RDW 15.5 % (11.5-15.5); WBC 3.4 k/uL (3.8-10.6)
[2023-02-17 03:45] LABS: African American GFR (CKD) 30 (>60 ml/min/1.73 sqM); Anion Gap 9 mmol/L; Blood Urea Nitrogen 43 mg/dL (7-17); Calcium 8.1 mg/dL (8.4-10.2); Carbon Dioxide 30 mmol/L (22-30); Chloride 103 mmol/L (98-107); Glucose 175 mg/dL (74-99); Non-African American GFR(CKD) 26 (>60 ml/min/1.73 sqM); Potassium 4.7 mmol/L (3.5-5.1); Sodium 142 mmol/L (137-145)
[2023-02-17] MEDS ORDERED: FUROSEMIDE 10 MG/ML 10 ML VIAL IV STA (03:59)
[2023-02-17] MEDS ORDERED: PIPERACILLIN-TAZOBACTAM 3.375 GM in SODIUM CHLORIDE 0.9% 100 ML IVPB SCH (04:00)
[2023-02-17] MEDS ORDERED: VANCOMYCIN IV PER PHARMACY 1 EACH MISC MISCELLANE PRN (04:01)
[2023-02-17] MEDS ORDERED: VANCOMYCIN 1,500 MG in SODIUM CHLORIDE 0.9% 500 ML 500 ML IVPB ONE (04:15)
[2023-02-17 04:18] LABS: INR 1.1 (<1.2); Prothrombin Time 12.1 sec (10.0-12.5)
[2023-02-17] MEDS: IPRATROPIUM-ALBUTEROL 3 ML NEB INHALATION SCH ×3 (04:20→08:16)
[2023-02-17 04:27] VITALS: TEMP 97.9
[2023-02-17 05:25] LABS: Anisocytosis (M) Present; Band Neutrophils % 17 %; Eosinophils # (M) 0.07 k/uL (0-0.7); Lymphocytes # (M) 0.78 k/uL (1.0-4.8); Neutrophils % (M) 58 %; Nucleated Red Blood Cells 0 /100 WBC (0-0); Polychromasia Present; Total Cells Counted 100
--- NOTE | 2023-02-17 07:20 | XR ---
EXAMINATION TYPE: XR chest 1V portable DATE OF EXAM: 02/17/2023 4:03 AM CLINICAL INDICATION:Female, 42 years old with history of increased oxygen demands; H COMPARISON: Chest radiographs from 02/16/2023. TECHNIQUE: XR chest 1V portable Frontal view of the chest. FINDINGS: Lungs/Pleura: There is no evidence of pleural effusion, focal consolidation, or pneumothorax. Pulmonary vascularity: Unremarkable. Heart/mediastinum: Cardiomediastinal silhouette is unremarkable. Musculoskeletal: No acute osseous pathology. Other findings: None Lines/Tubes: Endotracheal tube with distal tip 4.6 cm above the gopal. Nasogastric tube with its distal tip and side-port projecting under the diaphragm. IMPRESSION: Low lung volumes with a generalized hazy appearance which could represent atelectasis versus pulmonar y edema correlate with serum BNP.
--- NOTE | 2023-02-17 07:55 | CA ---
Transthoracic Echo Report Name: Latoya Brito Age: 42 Gender: F : 1980 Exam Date: 02/16/2023 17:28 Exam Location: [facility] Ht (in): 62 Wt (lb): 209 Ordering Physician: Sophie Kaplan MD Attending/Referring Phys: Diploma Dental Assistant Erica Gutierrez RDCS Procedure CPT: Indications: Cardiac Arrest Cardiac Hx: DM, CHF, CHOLESTEROL, SMOKER, CARDIAC ARREST Technical Quality: Fair Contrast 1: Total Dose (mL): Contrast 2: Total Dose (mL): MEASUREMENTS (Male / Female) Normal Values 2D ECHO LV Diastolic Diameter PLAX 5.0 cm 4.2 - 5.9 / 3.9 - 5.3 cm LV Systolic Diameter PLAX 3.9 cm IVS Diastolic Thickness 0.8 cm 0.6 - 1.0 / 0.6 - 0.9 cm LVPW Diastolic Thickness 1.1 cm 0.6 - 1.0 / 0.6 - 0.9 cm LV Relative Wall Thickness 0.4 RV Internal Dim ED PLAX 2.8 cm LA Systolic Diameter LX 3.6 cm 3.0 - 4.0 / 2.7 - 3.8 cm LV Diastolic Volume MOD BP 47.5 cm??? 67 - 155 / 56 - 104 cm??? LV Systolic Volume MOD BP 36.2 cm??? - 58 / 19 - 49 cm??? LV Ejection Fraction MOD BP 23.7 % >= 55 % LV Cardiac Index MOD BP 632.0 cm???/min???m??? LV Diastolic Volume MOD 4C 59.4 cm??? LV Systolic Volume MOD 4C 40.8 cm??? LV Ejection Fraction MOD 4C 31.3 % LV Cardiac Index MOD 4C 1042.1 cm???/min???m??? LV Diastolic Length 4C 6.7 cm LV Systolic Length 4C 6.0 cm LV Diastolic Volume MOD 2C 38.1 cm??? LV Systolic Volume MOD 2C 15.2 cm??? LV Ejection Fraction MOD 2C 60.2 % LV Cardiac Index MOD 2C 1288.8 cm???/min???m??? LV Diastolic Length 2C 6.3 cm LV Systolic Length 2C 2.4 cm LA Volume 46.8 cm??? 18 - 58 / 22 - 52 cm??? LA Volume Index 22.4 cm???/m??? 16 - 28 cm???/m??? M-MODE Aortic Root Diameter MM 2.9 cm MV E Point Septal Separation 1.4 cm AV Cusp Separation MM 2.2 cm DOPPLER AV Peak Velocity 137.9 cm/s AV Peak Gradient 7.6 mmHg MV Area PHT 4.2 cm??? Mitral E Point Velocity 94.0 cm/s Mitral A Point Velocity 90.0 cm/s Mitral E to A Ratio 1.0 MV Deceleration Time 181.7 ms MV E' Velocity 7.9 cm/s Mitral E to MV E' Ratio 11.9 TR Peak Velocity 298.5 cm/s TR Peak Gradient 35.6 mmHg Right Ventricular Systolic Press 40.6 mmHg FINDINGS Left Ventricle Left ventricular ejection fraction is estimated at 30-35 %. Mildly increased posterior wall thickness. Severely decreased left ventricular ejection fraction.left ventricular cavity size normal. Left ventricular wall thickness normal. Right Ventricle Normal right ventricular size. Mild pulmonary hypertension. Mildly reduced right ventricular global systolic function. Right Atrium Normal right atrial size. Left Atrium Normal left atrial size. Mitral Valve Structurally normal mitral valve. Trace mitral regurgitation. Aortic Valve Trileaflet aortic valve. No aortic valve stenosis or regurgitation. Tricuspid Valve Structurally normal tricuspid valve. Mild tricuspid regurgitation. Pulmonic Valve Structurally normal pulmonic valve. No pulmonic regurgitation. Pericardium No pericardial effusion. Aorta Normal size aortic root and proximal ascending aorta. CONCLUSIONS Left ventricular ejection fraction 30-35% Mild increased left ventricular wall thickness RVSP 40 Trace mitral regurgitation Mild tricuspid regurgitation Previewed by: Dr. Rupert Salomon DO (Electronically Signed) Final Date: 17 February 2023 07:54
[2023-02-17 08:23] VITALS: PULSE 37; RESP 0
--- NOTE | 2023-02-17 08:30 | P.PN ---
Subjective Progress Note Date: 02/17/23 I'm seeing this 42-year-old female patient in intensive care unit. The patient is currently intubated on a mechanical ventilator post cardiac arrest. She is an obese 42-year-old female patient with known history of diabetes mellitus, hypertension and hyperlipidemia and bronchial asthma. She is a chronic smoker. The patient was leaving a store yesterday and she was found unresponsive on the floor. This was witnessed by bystanders. Apparently she has been complaining of some shortness of breath prior to that. Following her collapse, the patient is thought to have a had trauma also. Immediately, EMS services were activated and the patient started on CPR by EMS and she was intubated on the scene. The initial cardiac rhythm was PEA cardiac arrest. No shocks were delivered. The patient was down for approximately 40 minutes and she arrived to the hospital while receiving CPR and she was was also receiving bag ventilation. ET tube was placed in the emergency department. The patient's intravenous or resuscitation in emergency. Based on our records, the suspicion was started 7:55 PM and ended at 8:29 PM. The rhythm was consistently PEA. There was recovery of some rhythm in between and this occurred at 7:58 PM and 8:06 PM and ultimately there was a sustained sinus rhythm at 8:29 PM. The patient had a CAT scan of the brain that showed diffuse cerebral edema without any midline shifts and this was attributed to acute-systemic state. No evidence of any cervical spine fracture. Initial EKG showed a sinus tachycardia without any significant ST segment elevation. There was some at segment depression involving the lateral leads.. The initial lactic acid level was at 13.7 and subsequently dropped down to 2.0. Cardiac enzymes were not elevated and the troponin initially was at 0.04. CT antigram of the chest was done and it showed some mild interstitial edema. No evidence of any pulmonary embolism. There was evidence of fractured nondisplaced right-sided third fourth and fifth ribs and left fourth and fifth and sixth ribs and this was attributed to CPR. The white cell count was at 8 with a hemoglobin of 10.1 and a platelet count of 320. The patient had a potass ium level of 6.6 which came up to 7.4 and then drop down to 6.4 and within the process of treating her hyperkalemia the patient received calcium, bicarb and D50 with insulin. She sustained an acute kidney injury and the creatinine is on the rise with a baseline creatinine of 1.06 and the current creatinine is at 1.34. Blood sugars are elevated and is currently down to 144 and the patient is unassigned scale insulin coverage. At this point in time, the patient is on propofol which is running at 10 mcg/kg/m. This will be discontinued. The patient is completely comatose and unresponsive to deep painful stimulation. She has fixed dilated pupils bilaterally. No nystagmus. No cough reflex. No gag reflex. No breathing reflex. Reflexes are not elicited in all 4 extremities and Babinski is equivocal. Her current temperature is at 98.8. On 02/17/2023, the patient is seen in follow-up. Very much aware of the events that occurred yesterday. As mentioned earlier, this is a 42-year-old female patient sustained a cardiac arrest with a prolonged down time. She was pneumatosis and she had no aortic reflexes on yesterday's evaluation. A repeat CAT scan of the brain was done yesterday and it showed no interval change and there was diffuse brain edema. No evidence of any acute bleeding. Ultrasound of the carotids came back negative for any significant stenosis and the EEG was also performed yesterday while the patient was off propofol and it was consistent with an isoelectric appearing EEG.. The patient was On a mechanical ventilator. In the speech therapist early intervention hours, the patient became progressively more hypotensive. The patient became also more hypoxic. Necessary ventilator changes were done and the patient was brought up to a PEEP of 10 with an FiO2 of 100% and a rate of 24 and a tidal volume of 400. Subsequent blood gases showed a pH of 7.29 with a pCO2 of 66 and pO2 of 70. Pressor requirements progressively went higher and the patient was brought up to and norepinephrine at 0.7 mcg/kg/m and the patient was also given vasopressin physiologic dose. Despite pressors and fluid resuscitation, the patient became progressively more hypotensive and the most recent systolic blood pressure is in the mid 40s. He remains deeply comatose, unresponsive, suspect related edema with secondary herniation as the patient had fixed dilated pupils. Rest of the blood work from today shows a WBC count of 3.4, hemoglobin was at 9.1 and a platelet count was 241. The patient also sustained an acute kidney injury with a BUN of 43 and a creatinine of 2.2. Sodium is at 142 with a potassium level of 4.7. Noted overnight, she was spiking temperatures treated with Tylenol with drop in temperature down to 97.9. External eye specs and cooling blankets were also used to manage her hyperthermia. Family was called and informed of these changes. She has been switched to a DO NOT RESUSCITATE CODE STATUS. Decision making person was her brother. Objective - Vital Signs Vital signs: Vital Signs Temp 97.9 F 02/17/23 04:00 Pulse 116 H 02/17/23 07:00 Resp 20 02/17/23 02:45 BP 94/50 02/17/23 03:15 Pulse Ox 73 L 02/17/23 07:00 FiO2 100 02/17/23 07:51 Intake & Output 02/16/23 02/17/23 02/17/23 18:59 06:59 18:59 Intake Total 2548.577 6332.749 96 Output Total 800 945 Balance 375.748 7785.749 96 Weight 91.9 kg Intake: IV 1079 1242 76 ACETAMINOPHEN IV (For NPO 400 ) 1,000 mg In Empty Bag 1 bag @ 400 mls/hr IVPB Q6HR PRN Rx#:[id number] Dextrose 5% in Water 1, 1040 720 60 000 ml @ 60 mls/hr IV . [id number] PRADIP with Sodium Bicarb (1 Meq/ml) 150 ml Rx#:[id number] Pressure Bag 39 72 6 kvo 50 10 Intake, IV Titration 121.476 768.749 Amount Norepinephrine 32 mg In 21.882 Sodium Chloride 0.9% 218 ml @ 0.03 MCG/KG/MIN 1. 337 mls/hr IV .Q24H PRADIP Rx#:[id number] Norepinephrine 4 mg In 65.225 135.928 Sodium Chloride 0.9% 250 ml @ 0.03 MCG/KG/MIN 10. 069 mls/hr IV .Q24H ONE Rx#:[id number] Piperacillin-Tazobactam 3 100 .375 gm In Sodium Chloride 0.9% 100 ml @ 25 mls/hr IVPB Q8H PRADIP Rx#: [id number] Vancomycin 1,500 mg In 500 Sodium Chloride 0.9% 500 ml 500 ml @ 167 mls/hr IVPB ONCE ONE Rx#: [id number] Vasopressin 60 unit In 10.939 Sodium Chloride 0.9% 150 ml @ 0.04 UNITS/MIN 6.12 mls/hr IV .Q24H PRADIP Rx#: [id number] propofoL 1,000 mg In 56.251 Empty Bag 1 bag @ 15 MCG/ KG/MIN 8.055 mls/hr IV . [id number] PRADIP Rx#:[id number] Tube Feeding 130 20 Other 70 Output: Urine 800 945 Other: Voiding Method Indwelling Catheter Indwelling Catheter ABP, PAP, CO, CI - Last Documented Arterial Blood Pressure 44/29 - Exam Gen. appearance, calm and comfortable, currently on 10 g of propofol, completely comatose and unresponsive Head exam was generally normal. There was no scleral icterus or corneal arcus. Mucous membranes were moist. Neck was supple and without jugular venous distension, thyromegaly, or carotid bruits. Carotids were easily palpable bilaterally. There was no adenopathy. Lungs sounds are diminished bilaterally otherwise clear and breath sounds are eq ual and symmetrical bilaterally Cardiac exam revealed the PMI to be normally situated and sized. The rhythm was regular and no extrasystoles were noted during several minutes of auscultation. The first and second heart sounds were normal and physiologic splitting of the second heart sound was noted. There were no murmurs, rubs, clicks, or gallops. Abdominal exam revealed normal bowel sounds. The abdomen was soft, non-tender, and without masses, organomegaly, or appreciable enlargement of the abdominal aorta. Examination of the extremities revealed diminished and absent pulses in all 4 extremities. There was no cyanosis, clubbing or edema. Examination of the skin revealed no evidence of significant rashes, suspicious appearing nevi or other concerning lesions. Neurologically, the patient is completely comatose, unresponsive, pupils are fixed dilated, no nystagmus, no clonus, no facial asymmetry, no cough, no gag, no breathing reflex. The patient is not withdrawing to painful stimulation. Reflexes are depressed and the patient has adequate vocal Babinski. No clonus. - Labs CBC & Chem 7: 02/17/23 03:19 02/17/23 03:19 Labs: Abnormal Lab Results - Last 24 Hours (Table) 02/16/23 02/16/23 02/16/23 Range/Units 09:58 11:08 13:05 WBC (3.8-10.6) k/uL RBC (3.80-5.40) m/uL Hgb (11.4-16.0) gm/dL Hct (34.0-46.0) % Lymphocytes # (Manual) (1.0-4.8) k/uL ABG pH (7.35-7.45) ABG pCO2 (35-45) mmHg ABG pO2 (83-108) mmHg ABG HCO3 (21-25) mmol/L ABG Total CO2 (19-24) mmol/L ABG O2 Saturation (94-97) % Potassium 5.8 H (3.5-5.1) mmol/L BUN (7-17) mg/dL Creatinine (0.52-1.04) mg/dL Glucose (74-99) mg/dL POC Glucose (mg/dL) 144 H (70-110) mg/dL Calcium (8.4-10.2) mg/dL Troponin I 0.864 H* (0.000-0.034) ng/mL 02/16/23 02/16/23 02/16/23 Range/Units 13:23 16:20 18:13 WBC (3.8-10.6) k/uL RBC (3.80-5.40) m/uL Hgb (11.4-16.0) gm/dL Hct (34.0-46.0) % Lymphocytes # (Manual) (1.0-4.8) k/uL ABG pH (7.35-7.45) ABG pCO2 (35-45) mmHg ABG pO2 (83-108) mmHg ABG HCO3 (21-25) mmol/L ABG Total CO2 (19-24) mmol/L ABG O2 Saturation (94-97) % Potassium (3.5-5.1) mmol/L BUN (7-17) mg/dL Creatinine (0.52-1.04) mg/dL Glucose (74-99) mg/dL POC Glucose (mg/dL) 225 H 126 H (70-110) mg/dL Calcium (8.4-10.2) mg/dL Troponin I 0.960 H* (0.000-0.034) ng/mL 02/16/23 02/17/23 02/17/23 Range/Units 20:35 00:04 02:29 WBC (3.8-10.6) k/uL RBC (3.80-5.40) m/uL Hgb (11.4-16.0) gm/dL Hct (34.0-46.0) % Lymphocytes # (Manual) (1.0-4.8) k/uL ABG pH 7.29 L (7.35-7.45) ABG pCO2 66 H (35-45) mmHg ABG pO2 70 L (83-108) mmHg ABG HCO3 32 H (21-25) mmol/L ABG Total CO2 34 H (19-24) mmol/L ABG O2 Saturation 92.4 L (94-97) % Potassium (3.5-5.1) mmol/L BUN (7-17) mg/dL Creatinine (0.52-1.04) mg/dL Glucose (74-99) mg/dL POC Glucose (mg/dL) 152 H 205 H (70-110) mg/dL Calcium (8.4-10.2) mg/dL Troponin I (0.000-0.034) ng/mL 02/17/23 02/17/23 Range/Units 03:19 03:19 WBC 3.4 L (3.8-10.6) k/uL RBC 3.29 L (3.80-5.40) m/uL Hgb 9.1 L (11.4-16.0) gm/dL Hct 28.7 L (34.0-46.0) % Lymphocytes # (Manual) 0.78 L (1.0-4.8) k/uL ABG pH (7.35-7.45) ABG pCO2 (35-45) mmHg ABG pO2 (83-108) mmHg ABG HCO3 (21-25) mmol/L ABG Total CO2 (19-24) mmol/L ABG O2 Saturation (94-97) % Potassium (3.5-5.1) mmol/L BUN 43 H (7-17) mg/dL Creatinine 2.28 H (0.52-1.04) mg/dL Glucose 175 H (74-99) mg/dL POC Glucose (mg/dL) (70-110) mg/dL Calcium 8.1 L (8.4-10.2) mg/dL Troponin I (0.000-0.034) ng/mL Microbiology - Last 24 Hours (Table) 02/16/23 02:58 Gram Stain - Preliminary Sputum Assessment and Plan Plan: Acute cardiac arrest, witnessed, with a prolonged down time. The patient had 40 minutes of resuscitation on the field and the patient was intubated and resuscitation was further continued in the emergency department for another 30 minutes. The patient did not receive any defibrillation. Cardiac rhythm was PEA. Exact cause is not clear. The echocardiogram showed impaired LV function with an ejection fraction of 30-35% without any significant pulmonary hypertension or valvular abnormalities. Comatose state secondary to cardiac arrest Acute brain swelling/edema secondary to hypoxemia/cardiac arrest, with absent cortical functions and reflexes and ongoing brain edema secondary to prolonged hypoxemia and cardiac arrest. Suspect [employer] herniation with hemodynamic collapse, refractory to pressors. EEG was isoelectric. CAT scan of the brain from yesterday was noted. Shock, secondary to above, refractory to pressors, currently profoundly hypotensive Acute kidney injury secondary to above, with progressive worsening renal function the creatinine is up to 2.28. Acute hyperkalemia secondary to above Acute hypoxic/hypercapnic yesterday failure, secondary to above, and a CT angiogram showing some mild interstitial edema and a similar findings also seen on the chest x-ray. Chronic bronchial asthma Smoker Diabetes mellitus type 2 with hyperglycemic condition at time of admission, currently on insulin size. Coverage with an adequate blood sugar control Hypertension, history of Hyperlipidemia, history of Chronic anxiety/depression/ADD The fractures bilaterally secondary to CPR, third fourth and fifth ribs non displaced fractures laterally Acute lactic acidosis Acute metabolic acidosis Hyperthermia, likely central, treated and she was also covered with any biotics with a combination of vancomycin and Zosyn Plan Severe anoxic encephalopathy along with [employer] edema and absent cortical functions and isoelectric EEG, suspect vein herniation with subsequent hemodynamic collapse Continue ventilator support. He necessary necessary ventilator changes were done Continue pressors Change the bicarb infusion to normal saline at the rate of 100 Unfortunately patient's hypotension is refractory on patient is not responsive to high-dose pressors. The patient will likely go into cardiac arrest due to above-mentioned comorbidities Family is aware CODE STATUS has been switched to DO NOT RESUSCITATE Extremity poor prognosis, mortality is suspected We'll continue to follow. We'll keep the patient ICU. The critical care evaluation that was done in more than 40 minutes. I had a lengthy discussion with the brother and down to and the niece at the bedside. They understand the situation. Time with Patient: Greater than 30
[2023-02-18] MEDS ORDERED: VANCOMYCIN 1,500 MG in SODIUM CHLORIDE 0.9% 500 ML 500 ML IVPB ONE (04:00)
--- NOTE | 2023-02-18 04:01 | DS ---
DISCHARGE SUMMARY CHIEF COMPLAINT: Cardiorespiratory arrest. HISTORY OF PRESENT ILLNESS AND PHYSICAL EXAMINATION: Details of this lady's history and physical can be found in the initial workup. LABORATORY STUDIES: While she was in the hospital, she had laboratory studies, details of which can be found in the laboratory section of her record. COURSE IN THE HOSPITAL: After she was resuscitated and intubated, she was sent to the intensive care unit where she remained on ventilator support. She presented with fixed and dilated pupils and she was managed by Intensive Medicine and she was seen by Neurology. It was felt that she had irreversible anoxic brain injury. Available family was with her and she on the morning of . FINAL DIAGNOSES: 1. Kvy-[id number] cardiorespiratory arrest. 2. Anoxic brain injury. 3. Asthmatic bronchitis. OPERATIONS: None. CONSULTATIONS: Intensive Medicine and Neurology. She was not improved, she . ADDENDUM: school psychological examiner was notified. There may be an investigation with an autopsy. This is largely due to her age and unexplained . There are several stories 1 of which was that she was shopping, came back and then had an arrest. The other was that she was cleaning some rat cages in her apartment and developed bronchospasm, ran outside and collapsed. MMODL / IJN: [id number] /
== END 2023-02-17 15:28 | disposition expired | DRG 296 ==
LOC: EC 19:55 → 2SICU 22:21
PROVIDERS: ADMIT Family Medicine; ATTEND Family Medicine
PROC: 02HV33Z Insertion of Infusion Device into Superior Vena Cava, Percutaneous Approach (ICD-10-PCS; principal; 2023-02-15)
PROC: 5A1945Z Respiratory Ventilation, 24-96 Consecutive Hours (ICD-10-PCS; principal; 2023-02-15)
PROC: 0BH17EZ Insertion of Endotracheal Airway into Trachea, Via Natural or Artificial Opening (ICD-10-PCS; principal; 2023-02-15)
PROC: 3E043XZ Introduction of Vasopressor into Central Vein, Percutaneous Approach (ICD-10-PCS; principal; 2023-02-15)
PROC: 4A133B1 Monitoring of Arterial Pressure, Peripheral, Percutaneous Approach (ICD-10-PCS; 2023-02-16)
PROC: 4A133J1 Monitoring of Arterial Pulse, Peripheral, Percutaneous Approach (ICD-10-PCS; 2023-02-16)
PROC: 03HY32Z Insertion of Monitoring Device into Upper Artery, Percutaneous Approach (ICD-10-PCS; 2023-02-16)
DX: I46.9 Cardiac arrest, cause unspecified (principal); G93.5 Compression of brain; G93.6 Cerebral edema; J96.01 Acute respiratory failure with hypoxia; J96.02 Acute respiratory failure with hypercapnia; S02.91XA Unspecified fracture of skull, initial encounter for closed fracture; G93.1 Anoxic brain damage, not elsewhere classified; S22.43XA Multiple fractures of ribs, bilateral, initial encounter for closed fracture; N17.9 Acute kidney failure, unspecified; E87.21 Acute metabolic acidosis; J45.901 Unspecified asthma with (acute) exacerbation; W18.30XA Fall on same level, unspecified, initial encounter; E11.65 Type 2 diabetes mellitus with hyperglycemia; I95.9 Hypotension, unspecified; R50.9 Fever, unspecified; E87.5 Hyperkalemia; Z66 Do not resuscitate; I10 Essential (primary) hypertension; F17.210 Nicotine dependence, cigarettes, uncomplicated; E03.9 Hypothyroidism, unspecified; F90.9 Attention-deficit hyperactivity disorder, unspecified type; K21.9 Gastro-esophageal reflux disease without esophagitis; Z79.4 Long term (current) use of insulin; F41.9 Anxiety disorder, unspecified; E66.9 Obesity, unspecified; E78.5 Hyperlipidemia, unspecified; F32.A Depression, unspecified; H57.04 Mydriasis; Z79.899 Other long term (current) drug therapy; Z79.890 Hormone replacement therapy; Z79.84 Long term (current) use of oral hypoglycemic drugs; Z28.310 Unvaccinated for COVID-19; Z88.1 Allergy status to other antibiotic agents
CPT/HCPCS: 31500; 36415; 36556; 36600; 70450; 71045; 71275; 72125; 76770; 80048; 80053; 82803; 82805; 83605; 83735; 84132; 84484; 85025; 85027; 85610; 86850; 86900; 86901; 87040; 87070; 87077; 87086; 87186; 87205; 92950; 93306; 93880; 94002; 94003; 94640; 95822; 96361; 96365; 96366; 96375; 99291